=== PATIENT | female | born 1950 | race Caucasian/White ===

== ENCOUNTER → 2017-01-28 | Outpatient (CLI) | payer MEDICARE, OTHER ==
[2017-01-28 19:32] LABS: BASOPHILS % (AUTO) 0.3 %; EOSINOPHILS # (AUTO) 0.2 10^3/uL (0.0-0.7); EOSINOPHILS % (AUTO) 5.9 %; HCT - HEMATOCRIT 37.5 % (37.0-47.0); HGB - HEMOGLOBIN 12.5 g/dL (12.0-16.0); LYMPHOCYTES # (AUTO) 0.8 10^3/uL (1.5-3.5); LYMPHOCYTES % (AUTO) 22.2 %; MEAN CORPUSCULAR HEMOGLOBIN 31.9 pg (27.0-31.0); MEAN CORPUSCULAR HGB CONC 33.4 g/dL (32.0-36.0); MEAN CORPUSCULAR VOLUME 95.6 fL (81.0-99.0); MEAN PLATELET VOLUME 8.4 fL (7.9-10.8); MONOCYTES # (AUTO) 0.3 10^3/uL (0.0-1.0); MONOCYTES % (AUTO) 8.7 %; NEUTROPHILS # (AUTO) 2.2 10^3/uL (1.5-6.6); NEUTROPHILS % (AUTO) 62.9 %; NUCLEATED RED BLOOD CELLS AUTO 0.1 /100WBC; RED BLOOD COUNT 3.92 10^6/uL (4.20-5.40); RED CELL DISTRIBUTION WIDTH 13.6 % (12.0-15.0); UNCORRECTED WHITE BLOOD COUNT 3.5 x10^3/uL; WHITE BLOOD COUNT 3.5 x10^3/uL (4.8-10.8)
[2017-01-28 19:33] LABS: ALBUMIN/GLOBULIN RATIO 1.6 (1.0-2.2); BILIRUBIN,TOTAL 0.7 mg/dL (0.2-1.0); BUN - BLOOD UREA NITROGEN 16 mg/dL (6-20); CALCIUM 9.2 mg/dL (8.5-10.3); CARBON DIOXIDE - CO2 27 mmol/L (21-32); CHLORIDE 108 mmol/L (101-111); CHOL/HDL RATIO 2.5 (<4.4); CHOLESTEROL 193 mg/dL; CREATININE 0.8 mg/dL (0.4-1.0); GFR - MDRD 72 (>89); GLUCOSE 93 mg/dL (70-100); HDL CHOLESTEROL 76 mg/dL; SODIUM 142 mmol/L (135-145); TOTAL PROTEIN 6.4 g/dL (6.7-8.2); TRIGLYCERIDES 35 mg/dL
[2017-01-28 19:52] LABS: LDL CHOLESTEROL,DIRECT 105 mg/dL
== END ==
LOC: LAB.N 08:00
PROVIDERS: ATTEND Internal Medicine
DX: C50.919 Malignant neoplasm of unspecified site of unspecified female breast (principal); Z79.899 Other long term (current) drug therapy; Z72.89 Other problems related to lifestyle; E78.5 Hyperlipidemia, unspecified
CPT/HCPCS: 36415; 80053; 80061; 84443; 85025; 86803

== ENCOUNTER → 2018-03-08 | Outpatient (CLI) | payer MEDICARE, OTHER ==
[2018-03-08 12:24] LABS: BASOPHILS % (AUTO) 0.2 %; EOSINOPHILS # (AUTO) 0.3 10^3/uL (0.0-0.7); EOSINOPHILS % (AUTO) 6.4 %; HGB - HEMOGLOBIN 13.6 g/dL (12.0-16.0); LYMPHOCYTES % (AUTO) 25.8 %; MEAN CORPUSCULAR HEMOGLOBIN 32.6 pg (27.0-31.0); MEAN CORPUSCULAR HGB CONC 34.5 g/dL (32.0-36.0); MEAN CORPUSCULAR VOLUME 94.6 fL (81.0-99.0); MEAN PLATELET VOLUME 7.7 fL (7.9-10.8); MONOCYTES # (AUTO) 0.4 10^3/uL (0.0-1.0); MONOCYTES % (AUTO) 9.8 %; NEUTROPHILS # (AUTO) 2.3 10^3/uL (1.5-6.6); NEUTROPHILS % (AUTO) 57.8 %; PLT - PLATELET COUNT 182 10^3/uL (130-450); RED BLOOD COUNT 4.17 10^6/uL (4.20-5.40); RED CELL DISTRIBUTION WIDTH 13.3 % (12.0-15.0)
[2018-03-08 13:01] LABS: ALBUMIN 4.2 g/dL (3.2-5.5); ALBUMIN/GLOBULIN RATIO 1.5 (1.0-2.2); ALKALINE PHOSPHATASE 79 IU/L (42-121); ALT ALANINE AMINOTRANSFERASE 23 IU/L (10-60); AST ASPARTATE AMINOTRANSFERASE 23 IU/L (10-42); BILIRUBIN,TOTAL 0.7 mg/dL (0.2-1.0); BUN - BLOOD UREA NITROGEN 21 mg/dL (6-20); CALCIUM 9.4 mg/dL (8.5-10.3); CARBON DIOXIDE - CO2 27 mmol/L (21-32); CHLORIDE 104 mmol/L (101-111); CHOLESTEROL 170 mg/dL; CREATININE 0.7 mg/dL (0.4-1.0); GFR - MDRD 83 (>89); GLUCOSE 101 mg/dL (70-100); HDL CHOLESTEROL 83 mg/dL; SODIUM 139 mmol/L (135-145)
[2018-03-08 13:35] LABS: LDL CHOLESTEROL,DIRECT 118 mg/dL; LDLD/HDL RATIO 1.4 (<4.4)
== END ==
LOC: LAB.WCP 10:40
PROVIDERS: ATTEND Internal Medicine
DX: E78.5 Hyperlipidemia, unspecified (principal); C50.919 Malignant neoplasm of unspecified site of unspecified female breast; Z79.899 Other long term (current) drug therapy; M81.8 Other osteoporosis without current pathological fracture
CPT/HCPCS: 36415; 80053; 80061; 83721; 85025

== ENCOUNTER 2018-03-30 13:24 | Outpatient (CLI) | payer MEDICARE, OTHER ==
--- NOTE | 2018-03-31 09:17 | DEXA Report ---
Reason: POSTMENOPAUSAL Procedure Date: 03/30/2018 Accession Number: [id number] / [id number] Procedure: DEX - Dexa Spine and/or Hip CPT Code: FULL RESULT: EXAM: Dexa Spine and/or Hip DATE: 03/30/2018 2:03 PM CLINICAL HISTORY: POSTMENOPAUSAL TECHNIQUE: Dual energy x-ray absorptiometry (DXA) was performed on a [employer] System. Regions measured are the AP Spine, femoral neck, and if needed forearm. COMPARISON: 02/14/2016. In accordance with the International Society for Clinical Densitometry (ISCD) guidelines, data from previous exams may be reanalyzed using current recommendations and techniques. This is done to allow a more accurate basis for comparison with the current study. FINDINGS: The data for the lumbar spine is as follows: BMD (g/cm/cm) T-SCORE Z-SCORE REGION L1 1.006 -1.0 0.7 L2 1.008 -1.6 0.1 L3 1.093 -0.9 0.8 L4 1.166 -0.3 1.4 TOTAL 1.077 -0.9 0.8 NOTE: All evaluable vertebrae are used for classification The data for the hip is as follows: BMD (g/cm/cm) T-SCORE Z-SCORE REGION Neck 0.740 -2.1 -0.5 TOTAL 0.772 -1.9 -0.5 NOTE: The femoral neck or total proximal femur, whichever is lowest, is used for classification. DXA RESULTS SUMMARY: Spine SCAN DATE AGE BMD CHANGE VS CHANGE VS PREVIOUS PREVIOUS % 3/30/2018 [age] 1.077 -0.031* -2.8* 02/14/2016 [age] 1.108 * Denotes significant change at the 95% confidence level. Denotes dissimilar scan types or analysis methods. DXA RESULTS SUMMARY: Hip SCAN DATE AGE BMD CHANGE VS CHANGE VS PREVIOUS PREVIOUS % [birth year]30[birth year]2018 67.4 0.772 -0.049* -6.0* 02/14/2016 65.3 0.821 * Denotes significant change at the 95% confidence level. Denotes dissimilar scan types or analysis methods. IMPRESSION: THE WHO CLASSIFICATION BASED ON THE INTERNATIONAL REFERENCE STANDARD IS OSTEOPENIA. THE FRACTURE RISK IS INCREASED. RECOMMENDATION: Patients with diagnosis of osteoporosis or osteopenia should have regular bone mineral density assessment. For those eligible for Medicare, routine testing is allowed once every 2 years. Testing frequency can be increased for patients who have rapidly progressing disease or for those who are receiving medical therapy to restore bone mass. COMMENT: World Health Organization (WHO) definitions for osteoporosis and osteopenia: NORMAL BMD: T-score at -1.0 or higher, fracture risk is low OSTEOPENIA BMD: T-score between -1.0 and -2.5, fracture risk is increased. OSTEOPOROSIS BMD: T-score at -2.5 or lower, fracture risk is high. National Osteoporosis Foundation recommends: 1. Obtain adequate dietary calcium (at least 1200 mg per day) and vitamin D (400-800 international units per day). 2. Participate, as appropriate, in regular weightbearing and muscle-strengthening exercise. 3. Avoid tobacco use and reduce alcohol and caffeine intake. 4. For more detailed information see the website at www.NOF.org.
== END 2018-03-30 13:25 | disposition home or self-care (01) ==
LOC: DI 13:24
PROVIDERS: ATTEND Internal Medicine
DX: M85.88 Other specified disorders of bone density and structure, other site (principal)
CPT/HCPCS: 77080

== ENCOUNTER 2019-05-01 07:00 | Outpatient (CLI) | payer MEDICARE, OTHER ==
[2019-05-01 18:49] LABS: BASOPHILS % (AUTO) 0.3 %; EOSINOPHILS # (AUTO) 0.2 10^3/uL (0.0-0.7); EOSINOPHILS % (AUTO) 6.6 %; HGB - HEMOGLOBIN 12.9 g/dL (12.0-16.0); LYMPHOCYTES # (AUTO) 0.9 10^3/uL (1.5-3.5); LYMPHOCYTES % (AUTO) 25.7 %; MEAN CORPUSCULAR HEMOGLOBIN 32.3 pg (27.0-31.0); MEAN CORPUSCULAR HGB CONC 32.3 g/dL (32.0-36.0); MEAN CORPUSCULAR VOLUME 99.8 fL (81.0-99.0); MEAN PLATELET VOLUME 10.4 fL (7.9-10.8); MONOCYTES # (AUTO) 0.3 10^3/uL (0.0-1.0); MONOCYTES % (AUTO) 9.6 %; NEUTROPHILS # (AUTO) 1.9 10^3/uL (1.5-6.6); NEUTROPHILS % (AUTO) 57.8 %; PLT - PLATELET COUNT 179 10^3/uL (130-450); RED CELL DISTRIBUTION WIDTH 13.1 % (12.0-15.0); WHITE BLOOD COUNT 3.3 x10^3/uL (4.8-10.8)
[2019-05-01 19:18] LABS: ALBUMIN 3.8 g/dL (3.2-5.5); ALBUMIN/GLOBULIN RATIO 1.4 (1.0-2.2); ALKALINE PHOSPHATASE 61 IU/L (42-121); ALT ALANINE AMINOTRANSFERASE 26 IU/L (10-60); AST ASPARTATE AMINOTRANSFERASE 32 IU/L (10-42); BILIRUBIN,TOTAL 0.9 mg/dL (0.2-1.0); BUN - BLOOD UREA NITROGEN 17 mg/dL (6-20); CALCIUM 8.9 mg/dL (8.5-10.3); CARBON DIOXIDE - CO2 27 mmol/L (21-32); CHLORIDE 107 mmol/L (101-111); CHOL/HDL RATIO 2.6 (<4.4); CHOLESTEROL 197 mg/dL; CREATININE 0.7 mg/dL (0.4-1.0); GFR - MDRD 83 (>89); GLUCOSE 95 mg/dL (70-100); HDL CHOLESTEROL 77 mg/dL; SODIUM 142 mmol/L (135-145); TOTAL PROTEIN 6.6 g/dL (6.7-8.2)
== END 2019-05-01 23:59 | disposition home or self-care (01) ==
LOC: LAB.N 07:00
PROVIDERS: ATTEND Nurse Practitioner
DX: E78.5 Hyperlipidemia, unspecified (principal); R00.2 Palpitations; C50.919 Malignant neoplasm of unspecified site of unspecified female breast; M81.8 Other osteoporosis without current pathological fracture
CPT/HCPCS: 36415; 80053; 80061; 82306; 83721; 84443; 85025

== ENCOUNTER 2020-04-10 17:50 | Outpatient (CLI) | payer MEDICARE, OTHER ==
--- NOTE | 2020-04-11 16:31 | XRAY Report ---
PROCEDURE: Hand 3 View RT INDICATIONS: CAT BITE TECHNIQUE: 3 views of the hand(s) acquired. COMPARISON: None FINDINGS: Bones: No fractures or dislocations. No suspicious bony lesions. Soft tissues: No suspicious soft tissue calcifications. No radiopaque foreign body. IMPRESSION: No radiopaque foreign body. No visualized fracture. Reviewed by: Jocelin Brown MD on 04/11/2020 4:[address] [facility] Approved by: Jocelin Brown MD on 04/11/2020 4:[address] [facility] Station ID: [id number]
== END 2020-04-10 23:59 | disposition home or self-care (01) ==
LOC: DI.N 17:50
PROVIDERS: ATTEND Family Medicine
DX: S61.451A Open bite of right hand, initial encounter (principal); W55.01XA Bitten by cat, initial encounter

== ENCOUNTER 2020-05-20 08:00 | Outpatient (CLI) | payer MEDICARE, OTHER ==
[2020-05-20 18:40] LABS: BASOPHILS % (AUTO) 0.3 %; EOSINOPHILS # (AUTO) 0.2 10^3/uL (0.0-0.7); HGB - HEMOGLOBIN 13.2 g/dL (12.0-16.0); LYMPHOCYTES # (AUTO) 0.9 10^3/uL (1.5-3.5); LYMPHOCYTES % (AUTO) 24.1 %; MEAN CORPUSCULAR HEMOGLOBIN 31.6 pg (27.0-31.0); MEAN CORPUSCULAR HGB CONC 32.1 g/dL (32.0-36.0); MEAN CORPUSCULAR VOLUME 98.3 fL (81.0-99.0); MEAN PLATELET VOLUME 9.9 fL (7.9-10.8); MONOCYTES # (AUTO) 0.4 10^3/uL (0.0-1.0); MONOCYTES % (AUTO) 9.1 %; NEUTROPHILS # (AUTO) 2.3 10^3/uL (1.5-6.6); NEUTROPHILS % (AUTO) 60.2 %; PLT - PLATELET COUNT 187 10^3/uL (130-450); RED BLOOD COUNT 4.18 10^6/uL (4.20-5.40); RED CELL DISTRIBUTION WIDTH 13.4 % (12.0-15.0); WHITE BLOOD COUNT 3.9 x10^3/uL (4.8-10.8)
[2020-05-20 18:51] LABS: ALBUMIN/GLOBULIN RATIO 1.4 (1.0-2.2); ALKALINE PHOSPHATASE 77 IU/L (42-121); ALT ALANINE AMINOTRANSFERASE 23 IU/L (10-60); AST ASPARTATE AMINOTRANSFERASE 26 IU/L (10-42); BILIRUBIN,TOTAL 0.6 mg/dL (0.2-1.0); BUN - BLOOD UREA NITROGEN 19 mg/dL (6-20); CALCIUM 9.2 mg/dL (8.5-10.3); CARBON DIOXIDE - CO2 25 mmol/L (21-32); CHLORIDE 108 mmol/L (101-111); CHOL/HDL RATIO 2.8 (<4.4); CHOLESTEROL 228 mg/dL; CREATININE 0.7 mg/dL (0.4-1.0); GLUCOSE 102 mg/dL (70-100); HDL CHOLESTEROL 82 mg/dL; LDL CHOLESTEROL,CALCULATED 137 mg/dL; LDL/HDL RATIO 1.7 (<4.4); TOTAL PROTEIN 6.9 g/dL (6.7-8.2); VLDL CHOLESTEROL 9 mg/dL
== END 2020-05-20 23:59 ==
LOC: LAB.WCP 08:00
PROVIDERS: ATTEND Nurse Practitioner
DX: R00.2 Palpitations (principal); E78.5 Hyperlipidemia, unspecified; Z78.0 Asymptomatic menopausal state; M81.8 Other osteoporosis without current pathological fracture
CPT/HCPCS: 36415; 80053; 80061; 83721; 84443; 85025

== ENCOUNTER 2020-06-12 12:59 | Outpatient (CLI) | payer MEDICARE, OTHER ==
--- NOTE | 2020-06-12 15:40 | DEXA Report ---
PROCEDURE: Dexa Spine and/or Hip INDICATIONS: POSTMENOPAUSAL TECHNIQUE: Dual energy x-ray absorptiometry (DXA) was performed on a [employer] System. Regions measur ed are the AP Spine, femoral neck, and if needed forearm. COMPARISON: Dexa, 03/30/2018 and 02/14/2016. FINDINGS: Lumbar Spine: Bone Mineral Density 1.108 g/cm/cm,T score -0.6, Left Hip: Bone Mineral Density 0.770 g/cm/cm,T score -1.9. Left Femoral Neck: Bone Mineral Density 0.738 g/cm/cm, T score -2.2, (T score greater or equal to -1.0: NORMAL) (T score from -1.1 to -2.4: OSTEOPENIA) (T score less than or equal to -2.5 to: OSTEOPOROSIS) Impression: 1. Based on WHO criteria, the patient is osteopenic. Compared with the prior examination dated 2017, the bone mineral density of the lumbar spine is slightly improved. The bone mineral density of the left hip is unchanged. Patients with diagnosis of osteoporosis or osteopenia should have regular bone mineral density assess ment. For those eligible for Medicare, routine testing is allowed once every 2 years. Testing frequ ency can be increased for patients who have rapidly progressing disease or for those who are receivin g medical therapy to restore bone mass. Reviewed by: J Carlos Barnett MD on 06/12/2020 3:38 PM PST Approved by: J Carlos Barnett MD on 06/12/2020 3:38 PM PST Station ID: [id number]
== END 2020-06-12 13:00 | disposition home or self-care (01) ==
LOC: DI 12:59
PROVIDERS: ATTEND Nurse Practitioner
DX: M85.89 Other specified disorders of bone density and structure, multiple sites (principal); Z78.0 Asymptomatic menopausal state

== ENCOUNTER 2021-06-11 11:21 | Outpatient (CLI) | payer MEDICARE, OTHER ==
[2021-06-11 18:00] LABS: BASOPHILS % (AUTO) 0.5 %; EOSINOPHILS # (AUTO) 0.3 10^3/uL (0.0-0.7); HCT - HEMATOCRIT 40.8 % (37.0-47.0); HGB - HEMOGLOBIN 12.9 g/dL (12.0-16.0); LYMPHOCYTES # (AUTO) 1.1 10^3/uL (1.5-3.5); LYMPHOCYTES % (AUTO) 25.9 %; MEAN CORPUSCULAR HEMOGLOBIN 30.8 pg (27.0-31.0); MEAN CORPUSCULAR HGB CONC 31.6 g/dL (32.0-36.0); MEAN CORPUSCULAR VOLUME 97.4 fL (81.0-99.0); MONOCYTES # (AUTO) 0.4 10^3/uL (0.0-1.0); MONOCYTES % (AUTO) 10.1 %; NEUTROPHILS # (AUTO) 2.4 10^3/uL (1.5-6.6); NEUTROPHILS % (AUTO) 57.3 %; PLT - PLATELET COUNT 193 10^3/uL (130-450); RED BLOOD COUNT 4.19 10^6/uL (4.20-5.40); WHITE BLOOD COUNT 4.2 x10^3/uL (4.8-10.8)
[2021-06-11 18:21] LABS: % IRON SATURATION 23 % (20-50); ALBUMIN/GLOBULIN RATIO 1.3 (1.0-2.2); ALKALINE PHOSPHATASE 64 IU/L (42-121); ALT ALANINE AMINOTRANSFERASE 24 IU/L (10-60); AST ASPARTATE AMINOTRANSFERASE 26 IU/L (10-42); BILIRUBIN,TOTAL 0.7 mg/dL (0.2-1.0); BUN - BLOOD UREA NITROGEN 18 mg/dL (6-20); CALCIUM 9.6 mg/dL (8.5-10.3); CARBON DIOXIDE - CO2 27 mmol/L (21-32); CHLORIDE 104 mmol/L (101-111); CHOL/HDL RATIO 2.5 (<4.4); CHOLESTEROL 207 mg/dL; CREATININE 0.8 mg/dL (0.4-1.0); GFR - MDRD 71 (>89); GLUCOSE 98 mg/dL (70-100); HDL CHOLESTEROL 83 mg/dL; IRON 82 ug/dL (28-170); LDL CHOLESTEROL,CALCULATED 115 mg/dL; LDL/HDL RATIO 1.4 (<4.4); POTASSIUM 4.1 mmol/L (3.5-5.0); SODIUM 139 mmol/L (135-145); TOTAL IRON BINDING CAPACITY 360 ug/dL (250-450); TOTAL PROTEIN 7.1 g/dL (6.7-8.2); TRANSFERRIN 257 mg/dL (192-382); TRIGLYCERIDES 45 mg/dL; VLDL CHOLESTEROL 9 mg/dL
[2021-06-11 18:32] LABS: FREE T4 (FREE THYROXINE) 0.82 ng/dL (0.58-1.64)
== END 2021-06-11 11:22 | disposition home or self-care (01) ==
LOC: LAB.N 11:21
PROVIDERS: ATTEND Nurse Practitioner
DX: E78.5 Hyperlipidemia, unspecified (principal); R25.2 Cramp and spasm; R53.83 Other fatigue
CPT/HCPCS: 36415; 80053; 80061; 82607; 83540; 83721; 84439; 84443; 84466; 85025

== ENCOUNTER 2022-01-16 17:00 | Outpatient (CLI) | payer MEDICARE, OTHER ==
--- NOTE | 2022-01-16 17:41 | XRAY Report ---
PROCEDURE: Chest 2 View X-Ray INDICATIONS: ACUTE COUGH TECHNIQUE: 2 view(s) of the chest. COMPARISON: None. FINDINGS: Surgical changes and devices: Right and left breast clips. Lungs and pleura: No pleural effusions or pneumothorax. Right lower lobe mass measuring 5.2 cm. Poss ible additional pulmonary nodules in the left lung. For example at the left lower lobe measuring 1.3 cm. Mediastinum: Mediastinal contours are normal. Heart size is normal. Bones and chest wall: No suspicious bony abnormalities. Soft tissues appear unremarkable. IMPRESSION: Right lower lobe mass measuring 5.2 cm. Differential diagnosis includes pneumonia. Additional nodule or nodules in the left lung. Recommend CT of the chest with IV contrast for further evaluation. Reviewed by: Jerel Harrington MD on 01/16/2022 5:39 PM PDT Approved by: Jerel Harrington MD on 01/16/2022 5:39 PM PDT Station ID: [id number]
== END 2022-01-16 17:01 | disposition home or self-care (01) ==
LOC: DI 17:00
PROVIDERS: ATTEND Physician Assistant Medical
DX: R91.8 Other nonspecific abnormal finding of lung field (principal)

== ENCOUNTER 2022-01-21 12:13 | Outpatient (CLI) | payer MEDICARE, OTHER ==
--- NOTE | 2022-01-21 21:33 | CT Report ---
PROCEDURE: CT CHEST with contrast INDICATIONS: COUGH. History of breast cancer and bilateral mastectomy. CONTRAST: IV CONTRAST: Optiray 320 ml: 100 PO CONTRAST: *NO PO CONTRAST TECHNIQUE: After the administration of intravenous contrast, 1 mm axial images were acquired from the pulmonary apices through the posterior costophrenic angles. Axial 5 mm soft tissue kernel reconstructions were performed as well as 8 mm axial MIP and coronal and sagittal 5 mm reformations. For radiation dose reduction, the following was used: automated exposure control, adjustment of mA and/or kV according to patient size. COMPARISON: Chest radiographs 01/16/2022. FINDINGS: Image quality: Excellent. Images are denoted as (series #/image #). Visualized thyroid: Unremarkable. Lymph nodes: Mediastinal and right hilar lymphadenopathy is present. For example: -Right lower paratracheal lymph node conglomerate: 4.4 x 1.9 cm (3). -Right hilar lymph node: 1.9 x 1.2 cm (07/31). Right mediastinal and hilar adenopathy results in narrowing of adjacent pulmonary arteries and airway s. Vasculature: Aorta and main pulmonary artery diameters are within normal range. Heart: Small-moderate pericardial effusion. Lung parenchyma and pleura: Multiple (at least 10) nodules/masses are present involving both lungs. E xamples include: -Right lower lobe: 5.4 x 4.5 cm mass (4/192). The mass encases and narrows the adjacent airways and a rteries. -Left lower lobe, anterior: 1 20 cm nodule (4/212). -Left upper lobe: 0.7 cm nodule (4/120). No pleural effusion. Airways: Airways are patent centrally. There is mild narrowing of the central right upper lobe airway by adjacent lymphadenopathy. Chest wall/musculoskeletal: Bilateral mastectomy. Degenerative changes of the spine. No definitive alston spicious osseous lesion identified. Visualized upper abdomen: 1.6 cm left adrenal nodule (3/59). IMPRESSION: 1. Findings suspicious for thoracic metastatic disease including a dominant right lower lobe mass, pu lmonology nodules within both lungs, and mediastinal and right hilar lymphadenopathy. This is suspici ous for primary lung cancer but other nonspecific metastatic disease is also possible. 2. An indeterminate left adrenal nodule is present. If clinically indicated, adrenal protocol CT with out and with contrast could be helpful to determine if this represents an adenoma. Otherwise, attenti on to this finding on future follow-up imaging studies is recommended. Reviewed by: Rhett Radford MD on 01/21/2022 9:32 PM PDT Approved by: Rhett Radford MD on 01/21/2022 9:32 PM PDT Station ID: [id number]
== END 2022-01-21 12:14 | disposition home or self-care (01) ==
LOC: DI 12:13
PROVIDERS: ATTEND Physician Assistant Medical
DX: R91.8 Other nonspecific abnormal finding of lung field (principal); R59.0 Localized enlarged lymph nodes; E27.8 Other specified disorders of adrenal gland
CPT/HCPCS: 71260; Q9967

== ENCOUNTER 2022-01-28 10:13 | Outpatient (CLI) | payer MEDICARE, OTHER | END 2022-01-28 10:14 | disposition home or self-care (01) | LOC: LAB.N 10:13 | DX: Z01.812 Encounter for preprocedural laboratory examination (principal); Z20.822 Contact with and (suspected) exposure to COVID-19 ==

== ENCOUNTER 2022-08-01 10:32 | Inpatient (IN) | payer MEDICARE, OTHER ==
[2022-08-01] MEDS ORDERED: ONDANSETRON 4 MG/2 ML VIAL IVP STA (11:19)
[2022-08-01] MEDS ORDERED: FAMOTIDINE 20 MG/2 ML VIAL IVP STA (11:20)
[2022-08-01] MEDS ORDERED: SODIUM CHLORIDE 0.9% 1,000 ML IV STA ×2 (11:20→12:16)
[2022-08-01] MEDS ORDERED: HYDROmorphone 0.5 MG/0.5 ML SYRINGE IVP STA (11:22)
[2022-08-01 11:42] LABS: BASOPHILS % (AUTO) 0.1 %; EOSINOPHILS % (AUTO) 0.1 %; HCT - HEMATOCRIT 41.2 % (37.0-47.0); HGB - HEMOGLOBIN 12.6 g/dL (12.0-16.0); LYMPHOCYTES % (AUTO) 3.6 %; MEAN CORPUSCULAR HEMOGLOBIN 31.8 pg (27.0-31.0); MEAN CORPUSCULAR HGB CONC 30.6 g/dL (32.0-36.0); MEAN PLATELET VOLUME 10.1 fL (7.9-10.8); MONOCYTES % (AUTO) 5.6 %; NEUTROPHILS % (AUTO) 79.4 %; PLT - PLATELET COUNT 280 10^3/uL (130-450); RED BLOOD COUNT 3.96 10^6/uL (4.20-5.40); RED CELL DISTRIBUTION WIDTH 14.6 % (12.0-15.0); WHITE BLOOD COUNT 14.8 x10^3/uL (4.8-10.8)
[2022-08-01] MEDS ORDERED: ALBUTEROL NEB 2.5 MG/3 ML INH STA (12:05)
[2022-08-01 12:10] LABS: ALBUMIN 4.1 g/dL (3.2-5.5); ALKALINE PHOSPHATASE 147 IU/L (42-121); ALT ALANINE AMINOTRANSFERASE 36 IU/L (10-60); AST ASPARTATE AMINOTRANSFERASE 22 IU/L (10-42); BILIRUBIN,TOTAL 1.5 mg/dL (0.2-1.0); BUN - BLOOD UREA NITROGEN 54 mg/dL (6-20); CALCIUM 9.3 mg/dL (8.5-10.3); CHLORIDE 101 mmol/L (101-111); CREATININE 1.9 mg/dL (0.4-1.0); GFR - MDRD 26 (>89); LIPASE 36 U/L (22-51); MAGNESIUM 2.9 mg/dL (1.7-2.8); SODIUM 133 mmol/L (135-145); TOTAL PROTEIN 8.1 g/dL (6.7-8.2)
[2022-08-01 12:14] LABS: CARBON DIOXIDE - CO2 < 6 mmol/L (21-32); GLUCOSE 856 mg/dL (70-100)
[2022-08-01 12:16] LABS: SLIDE REVIEW? Indicated
[2022-08-01] MEDS ORDERED: INSULIN REGULAR HUMAN 100 UNIT/1 ML 10 ML MDV IVP STA (12:16)
[2022-08-01 12:27] LABS: ABNORMAL LYMPHS % (MANUAL) 0 %
--- NOTE | 2022-08-01 12:28 | XRAY Report ---
PROCEDURE: Chest 1 View X-Ray INDICATIONS: chest pain TECHNIQUE: One view of the chest was acquired. COMPARISON: 01/16/2022. Correlation is also made with the chest CT, 01/21/2022. FINDINGS: Surgical changes and devices: Right breast clips and bilateral axillary clips are seen. There is a r ight-sided chest port, with the tip seen near the cavoatrial junction.. Lungs and pleura: No pleural effusions or pneumothorax. The previously seen right infrahilar nodule is clearly improved compared to the prior chest radiograph. Mediastinum: The aorta is prominent and tortuous. The cardiac contours are within normal limits. Bones and chest wall: No suspicious bony lesions. Overlying soft tissues appear unremarkable. IMPRESSION: No acute abnormality is seen. Improved right infrahilar mass. Right-sided chest port. Additional findings: Right breast clips Bilateral axillary clips Reviewed by: Emerson Perez MD on 08/01/2022 11:26 AM [facility] Approved by: Emerson Perez MD on 08/01/2022 11:26 AM [facility] Station ID: [id number]
[2022-08-01 12:32] LABS: VBG BASE EXCESS -25.4 mmol/L (-2 - +2); VBG HCO3 4.8 mmol/L (23-28); VBG OXYGEN SATURATION 92.7 % (60-80); VBG PCO2 20.8 mmHg (41-51); VBG PO2 78.7 mmHg (25-47); VBG TOTAL CO2 5.4 mmol/L (24-29)
[2022-08-01 12:33] LABS: BAND NEUTROPHILS % (MANUAL) 10 %; LYMPHOCYTES # (MANUAL) 0.4 10^3/uL (1.5-3.5); LYMPHOCYTES % (MANUAL) 3 %; METAMYELOCYTES % (MANUAL) 5 %; MONOCYTES # (MANUAL) 0.4 10^3/uL (0.0-1.0); MYELOCYTES % (MANUAL) 9 %; NEUTROPHILS # (MANUAL) 11.8 10^3/uL (1.5-6.6)
[2022-08-01 12:34] LABS: VBG PH 6.98 (7.31-7.41)
[2022-08-01 12:38] LABS: PLATELET ESTIMATE, MANUAL NORMAL (130-450,000) (NORMAL); PLATELET MORPHOLOGY NORMAL APPEARANCE (NORMAL)
[2022-08-01 12:39] LABS: DIFFERENTIAL COMMENT MANUAL DIFFERENTIAL
[2022-08-01 12:48] LABS: B. PARAPERTUSSIS- RESP PCR PAN NOT DETECTED; B. PERTUSSIS- RESP PCR PANEL NOT DETECTED; C. PNEUMONIAE- RESP PCR PANEL NOT DETECTED; CORONAVIRUS 229E-RESP PCR NOT DETECTED; CORONAVIRUS HKU1-RESP PCR NOT DETECTED; CORONAVIRUS NL63-RESP PCR NOT DETECTED; CORONAVIRUS OC43-RESP PCR NOT DETECTED; HUMAN METAPNEUMOVIRUS NOT DETECTED; INFLUENZA A- RESP PCR PANEL NOT DETECTED; INFLUENZA B - RESP PCR PANEL NOT DETECTED; M. PNEUMONIAE- RESP PCR PANEL NOT DETECTED; PARAINFLUENZA VIRUS 1 NOT DETECTED; PARAINFLUENZA VIRUS 2 NOT DETECTED; PARAINFLUENZA VIRUS 3 NOT DETECTED; PARAINFLUENZA VIRUS 4 NOT DETECTED; RHINOVIRUS/ENTEROVIRUS NOT DETECTED; RSV- RESP PCR PANEL NOT DETECTED; SARS-CoV-2 -RESP PCR PANEL NOT DETECTED
[2022-08-01] MEDS ORDERED: INSULIN REGULAR IN 0.9 % NS 100 UNIT/100 ML BAG IV SCH (13:00)
--- NOTE | 2022-08-01 13:01 | ED Physician Documentation ---
PD HPI NVD - Stated complaint Stated Complaint: SOA/VOMITING/ABD PX - Chief complaint Chief Complaint: Abd Pain - History obtained from History obtained from: Patient - History of Present Illness Timing - onset: How many days ago (2) Timing - duration: Days (2) Timing - details: Abrupt onset, Still present (Onset of nausea and vomiting starting 2 days ago. Emesis of any oral intake. Decreased urine output. No diarrhea. She started steroids 2 days ago for rash medication related. No history of diabetes.) Associated symptoms: Abdominal pain (intermittent upper abd cramping.). 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 Had medications discontinued, Keytruda 4 weeks ago and Zarxio 2 days ago. Started on prednisone 40 mg daily 2 days ago.) Review of Systems Constitutional: denies: Fever, Chills Nose: denies: Rhinorrhea / runny nose, Congestion Throat: reports: Sore throat Cardiac: denies: Chest pain / pressure, Palpitations Respiratory: reports: Dyspnea, Wheezing. denies: Cough GI: reports: Abdominal Pain (intermittent upper abd pain), Nausea, Vomiting. denies: Constipation, Diarrhea, Hematemesis, Bloody / black stool : denies: Dysuria Skin: reports: Rash (for several weeks, thought related to Oncology meds.) Neurologic: reports: Generalized weakness. 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 Had been doing well and then found to have a lung tumor recently that was breast tissue. Some metastatic disease to the lung without other metastases as yet. 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: Mastectomy - Present Medications Home Medications: Ambulatory Orders Medication Instructions Recorded Confirmed Alendronate [Fosamax] 70 mg PO Q7D 05/17/13 06/19/15 Alprazolam 0.25 mg PO DAILY PRN 05/17/13 06/19/15 Ascorbic Acid [Vitamin C] 1 tab PO DAILY 05/17/13 06/19/15 Ca Carbonate/Vitamin D3/Vit K 2 each PO BID 05/17/13 06/19/15 [Viactiv Soft Chew Tablet] Cetirizine [ZyrTEC] 10 mg PO DAILY 05/17/13 06/19/15 Ibuprofen 100 mg PO DAILY PRN 05/17/13 06/19/15 Metrolotion 1 inch TP DAILY PRN 05/17/13 06/19/15 Sennosides [Senna] 8.6 mg PO DAILY PRN 05/17/13 06/19/15 Simethicone [Mytab Gas] 80 mg PO DAILY PRN 05/17/13 06/19/15 Sulfacetamide Sodium [Klaron] 118 ml TP DAILY 05/17/13 06/19/15 Vitamin B Complex [B Complex] 1 each PO DAILY 05/17/13 06/19/15 Glucosam/Chondr-Msm6/Manganese 1 each PO DAILY 06/19/15 06/19/15 [Glucosamine-Chondroitin Sftgl] Magnesium 500 mg PO DAILY 06/19/15 06/19/15 - Allergies Allergies/Adverse Reactions: Allergies Allergy/AdvReac Type Severity Reaction Status Date / Time Cephalosporins Allergy Rash Verified 08/01/22 12:07 Iodinated Contrast Media Allergy Edema Verified 08/01/22 12:07 bandaids Allergy Itching Uncoded 08/01/22 11:40 - Social History Does the pt smoke?: No Smoking Status: Never smoker PD ED PE NORMAL - Vitals Vital signs reviewed: Yes - General General: Alert and oriented X 3, Well developed/nourished, Other (Appears uncomfortable with nausea and vomiting. Holding emesis bag. Has emesis of clear liquids.) - Neck Neck: Supple, no meningeal sign, No adenopathy - Cardiac Cardiac: RRR, No murmur - Respiratory Respiratory: No respiratory distress. No: Clear bilaterally (mild exp wheezes centrally. No coarse sounds. ) - Abdomen Abdomen: Soft, Non distended, No organomegaly, Other (Mild tenderness in the epigastric area without any guarding nor percussion tenderness. Lower abdomen not tender.). No: Normal bowel sounds (diminished) - Derm Derm: Normal color, Warm and dry, Other (Generalized rash noted in patches with scaling of skin and red base consistent with parents nummular psoriasis. Right face with some redness surrounding but no purulence.) - Extremities Extremities: No edema, No calf tenderness / cord - Neuro Neuro: Alert and oriented X 3, No motor deficit, Normal speech Results - Vitals Vitals: Vital Signs - 24 hr 08/01/22 08/01/22 10:34 12:18 Temperature 36.6 C Heart Rate 91 96 Respiratory 14 18 Rate Blood Pressure 144/53 H O2 Saturation 96 Oxygen O2 Source Room air - Labs Labs: Laboratory Tests 08/01/22 08/01/22 08/01/22 11:35 11:35 11:50 WBC 14.8 H RBC 3.96 L Hgb 12.6 Hct 41.2 MCV 104.0 H MCH 31.8 H MCHC 30.6 L RDW 14.6 Plt Count 280 MPV 10.1 Neut # (Auto) Not Reportable Lymph # (Auto) Not Reportable Mcclain # (Auto) Not Reportable Eos # (Auto) Not Reportable Baso # (Auto) Not Reportable Absolute Nucleated RBC Not Reportable Total Counted 100 Band Neuts % (Manual) 10 Abnorm Lymph % (Manual) 0 Metamyelocytes % 5 H Myelocytes % 9 H Nucleated RBC % Not Reportable Neutrophils # (Manual) 11.8 H Lymphocytes # (Manual) 0.4 L Monocytes # (Manual) 0.4 Eosinophils # (Manual) 0.0 Basophils # (Manual) 0.0 Differential Comment MANUAL DIFFERENTIAL Manual Slide Review Indicated WBC Morphology 1+ TOXIC GRANULATION Platelet Estimate NORMAL (130-450,000) Platelet Morphology NORMAL APPEARANCE RBC Morph Micro Appear 1+ MACROCYTOSIS VBG pH VBG pCO2 VBG pO2 VBG HCO3 VBG Total CO2 VBG O2 Saturation VBG Base Excess Sodium 133 L Potassium 6.0 H* Chloride 101 Carbon Dioxide < 6 L* Anion Gap 27.0 H BUN 54 H Creatinine 1.9 H Estimated GFR (MDRD) 26 L Glucose 856 H* Calcium 9.3 Magnesium 2.9 H Total Bilirubin 1.5 H AST 22 ALT 36 Alkaline Phosphatase 147 H Total Protein 8.1 Albumin 4.1 Globulin 4.0 Albumin/Globulin Ratio 1.0 Lipase 36 Nasal Adenovirus (PCR) NOT DETECTED Nasal B. parapertussis DNA (PCR) NOT DETECTED Nasal Coronavir 229E PCR NOT DETECTED Nasal Coronavir HKU1 PCR NOT DETECTED Nasal Coronavir NL63 PCR NOT DETECTED Nasal Coronavir OC43 PCR NOT DETECTED Nasal Enterovir/Rhinovir PCR NOT DETECTED Nasal Influenza B PCR NOT DETECTED Nasal Influenza A PCR NOT DETECTED Nasal Parainfluen 1 PCR NOT DETECTED Nasal Parainfluen 2 PCR NOT DETECTED Nasal Parainfluen 3 PCR NOT DETECTED Nasal Parainfluen 4 PCR NOT DETECTED Nasal RSV (PCR) NOT DETECTED Nasal B.pertussis DNA PCR NOT DETECTED Nasal C.pneumoniae (PCR) NOT DETECTED Yo Human Metapneumo PCR NOT DETECTED Nasal M.pneumoniae (PCR) NOT DETECTED Nasal SARS-CoV-2 (PCR) NOT DETECTED Serum Ketones 08/01/22 08/01/22 12:26 12:26 WBC RBC Hgb Hct MCV MCH MCHC RDW Plt Count MPV Neut # (Auto) Lymph # (Auto) Mcclain # (Auto) Eos # (Auto) Baso # (Auto) Absolute Nucleated RBC Total Counted Band Neuts % (Manual) Abnorm Lymph % (Manual) Metamyelocytes % Myelocytes % Nucleated RBC % Neutrophils # (Manual) Lymphocytes # (Manual) Monocytes # (Manual) Eosinophils # (Manual) Basophils # (Manual) Differential Comment Manual Slide Review WBC Morphology Platelet Estimate Platelet Morphology RBC Morph Micro Appear VBG pH 6.980 L VBG pCO2 20.8 L VBG pO2 78.7 H VBG HCO3 4.8 L VBG Total CO2 5.4 L VBG O2 Saturation 92.7 H VBG Base Excess -25.4 L Sodium Potassium Chloride Carbon Dioxide Anion Gap BUN Creatinine Estimated GFR (MDRD) Glucose Calcium Magnesium Total Bilirubin AST ALT Alkaline Phosphatase Total Protein Albumin Globulin Albumin/Globulin Ratio Lipase Nasal Adenovirus (PCR) Nasal B. parapertussis DNA (PCR) Nasal Coronavir 229E PCR Nasal Coronavir HKU1 PCR Nasal Coronavir NL63 PCR Nasal Coronavir OC43 PCR Nasal Enterovir/Rhinovir PCR Nasal Influenza B PCR Nasal Influenza A PCR Nasal Parainfluen 1 PCR Nasal Parainfluen 2 PCR Nasal Parainfluen 3 PCR Nasal Parainfluen 4 PCR Nasal RSV (PCR) Nasal B.pertussis DNA PCR Nasal C.pneumoniae (PCR) Yo Human Metapneumo PCR Nasal M.pneumoniae (PCR) Nasal SARS-CoV-2 (PCR) Serum Ketones MODERATE H - Rads (name of study) chest xray Relevant Findings:: Prelim report reviewed, EMP independent interpretation of test (no infiltrates noted. Port in place. Per Radia also an improvement in right infrahilar mass. ), See rad report PD Medical Decision Making - ED course Complexity details: considered differential (General weakness and body aches with nausea and vomiting and some feeling of dyspnea. Initial impression would be viral illness or gastroenteritis. Mild epigastric tenderness. Will give IV fluids and antiemetics and pain medicine. Check labs), d/w patient ED course: The patient presented with 2 days of nausea and vomiting and general malaise and weakness. She had started prednisone 2 days ago for a rash thought related to one of her chemo medications. She was on Keytruda for her breast cancer to the lung. She was then on Zarxio for a low white count. She developed a rash and so had these medicines stepwise stopped. She was started on prednisone 2 days ago for the rash. No history of diabetes and she states recent blood test even up to 2 weeks ago had been normal. Labs here are showing a significantly elevated blood sugar of in the 800s. Subsequently I did add venous blood gas which showed a pH of 6.9 and a serum ketone level was ordered and reviewed showing moderate ketones. Her initial potassium was elevated at 6.0 and magnesium at 2.9. Her sodium is in the normal range at 133 but given the blood sugar in the 800s, this would correct to actually a sodium approximately 148 which would be consistent with dehydration. Her kidney function is slightly elevated from baseline. The patient does appear dehydrated. There is also the new onset DKA. I do not know if this could be accounted for from the prednisone just for the last 2 days. There is no other obvious instigator for it. The patient was started on a infusion of saline after given 2 L fluid boluses. She was given 3 units of insulin IV to start and then an insulin drip will be started. This will need to be monitored closely to ensure no not too rapid of a decrease in the blood sugar. I did repeat her basic metabolic profile at approximately 1-1/2 hours after the first to see the trend in her potassium and sodium. This will give a sense on her renal function as well. I do not see a oncology specific problem at this time and so I do not feel she needs transferring to the oncology. Talked with our hospitalist here Dr. Head who is in agreement and feels that we can treat the patient here locally. We do have ICU beds available and the patient will be admitted to the ICU here. The patient was updated on the blood tests and advancements in treatment as we progressed. We did get a chest x-ray which did not show any infiltrates. Her respiratory panel was negative for the major viruses. No apparent infectious cause per se. Departure - Departure Disposition: 66 [facility] DC/Xfer Clinical Impression: Nausea and vomiting due to hyperglycemia, DKA (diabetic ketoacidosis), Dehydration, Breast cancer metastasized to lung Condition: Stable Record reviewed to determine appropriate education?: Yes
--- NOTE | 2022-08-01 13:09 | HISTORY & PHYSICAL EXAMINATION ---
Chief Complaint - Chief Complaint Chief Complaint: nausea and vomitting History of Present Illness - Admitted From Admitted From:: home - History Obtained From Records Reviewed: [facility] and [facility] History obtained from: patient and Dr. Joy Exam Limitations: none - History of Present Illness HPI Comment/Other: This 71-year-old female has lung cancer. She was started on steroids 2 days ago. She has no previous history of diabetes. And began having abdominal cramping, nausea and vomiting. She has been unable to keep anything down and has come to the emergency room. She is found to be in DKA. She was initially diagnosed with breast cancer in 2001. She was triple negative. T2N0. Underwent CMF therapy, bilateral mastectomies. Had ROSMERY status 5 years later. In October 2021 she began having a spasmodic cough, shortness of breath after donating blood. A chest x-ray was finally done in January 2022 were the shortness of breath and cough was so pervasive. It showed a lung mass, when CT was done showed multiple bilateral masses. Some as large as 5.4 cm. Mediastinal and right hilar adenopathy. A small moderate pericardial effusion. An indeterminant left adrenal nodule. The biopsy showed her to be recurrent breast cancer. I do not have records to verify that. But the patient is a very medically literate person and says that it was recurrent metastatic breast cancer. She has been on Keytruda and Abraxane. Abraxane was eventually dropped and she is only been on Keytruda. About 7 weeks ago she developed an unusual rash. 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 She was given steroids yesterday for the first time to help with the rash. Up until now both she and her son states that she has been tolerating all of his well. Appetite has been down, but ability to ambulate, drive a car, keep house, and stay up-to-date on her appointments and medications was doing well. Yesterday, after the dose steroids, she developed nausea and vomiting. Generalized intermittent abdominal pain that seem to begin going all over. No diarrhea. No fever, cough, chills. No blood in the stool, no blood in the urine. No urgency, frequency dysuria. She is exceedingly exhausted. V katinaon has changed. She says that she will look at something and it seems to distort as she is looking at it. It changes color, becomes brighter or lead quality technician. She finally came to the emergency room today when the nausea and vomiting was nonstop. Her mouth was getting so dry. She was started to get short of breath. A full review of systems was done and she tells me that her migraine are steady. The same as always. Other than the distorted vision she swears the same classes. If she takes 4 ibuprofen it takes the migraine away almost immediately if she does not with the aura. Her allergic rhinitis is fairly good because she has been doubling up on her antihistamines for her skin rash. Lately she notices if she swallows, she has a coughing fit after swallowing. She has occasional palpitations but they are nothing new. She says that she has a problem with anxiety. She has no new chest pain, different palpitation, orthopnea, or edema. Overall her appetite has been down and she is lost about 8 pounds. She has not eaten in 2 days. She has chronic sciatica with degenerative disc disease of the lumbar spine and facet arthritis. Both hips and legs will hurt but the left leg is much worse than the right leg. It causes her to limp around. She does not need a cane or a walker. She denies seizures, syncope, memory loss. The only neurological complaint she has is chronic numb ness of her hands and feet left over from the chemotherapy in 2001. In this new visual distortion that she is getting. In the emergency room temperature was 36.6, heart rate 91, blood pressure 144/5 3. 96% on room air. Diffuse pain, mainly in her abdomen at an 8 out of a 10. She has diffuse circular macules. They are not confluent. Spots on her face, forearms, none on her trunk, abdomen, or legs. Dr. Joy's lab evaluation showed her to have a sodium of 133, potassium 6.0. Carbon dioxide less than 6. BUN 54. Creatinine 1.9. Glucose was 856. Magnesium 2.9, total bili 1.5. Alk phos 147. He had not done a UA or troponin. I ordered those and her troponin was 22.7. Urinalysis had proteinuria, ketonuria, hematuria, red cells and white cells but was leukocyte Estrace negative, nitrite negative. She did have squamous cells. Chest x-ray had an improved right hilar infrahilar mass from when she first presented with an abnormal chest x-ray in October 2021. 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 Bilateral mastectomy. Triple negative. CMF. 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 Her son is adopted as well. Living arrangement: At home Living Situation: With family Social History Notes: She is since 2006. Son lives with her. Never smoked. 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 She has no history of recreational alston bstance abuse. - Substance History Use: Uses substance without health or social issues: NONE - POLST Patient has POLST: No POLST Status: Full Code Meds/Allgy - Home Medications Home Medications: Ambulatory Orders Medication Instructions Recorded Confirmed Alprazolam 0.25 mg PO QPM PRN 05/17/13 08/01/22 Ca Carbonate/Vitamin D3/Vit K 2 each PO BID 05/17/13 08/01/22 [Viactiv Soft Chew Tablet] Cetirizine [ZyrTEC] 10 mg PO BID 05/17/13 08/01/22 Ibuprofen 400 mg PO QID PRN 05/17/13 08/01/22 Vitamin B Complex [B Complex] 1 each PO DAILY 05/17/13 08/01/22 Glucosam/Chondr-Msm6/Manganese 1 each PO DAILY 06/19/15 08/01/22 [Glucosamine-Chondroitin Sftgl] Magnesium 500 mg PO DAILY 06/19/15 08/01/22 Ondansetron Odt [Zofran Odt] 4 - 8 mg TL Q8H PRN 08/01/22 08/01/22 Prochlorperazine Maleate 10 mg PO Q6H PRN 08/01/22 08/01/22 [Compazine] predniSONE [Deltasone] 40 mg PO DAILY 08/01/22 08/01/22 - Allergies Allergies/Adverse Reactions: Allergies Allergy/AdvReac Type Severity Reaction Status Date / Time Cephalosporins Allergy Rash Verified 08/01/22 12:07 Iodinated Contrast Media Allergy Edema Verified 08/01/22 12:07 bandaids Allergy Itching Uncoded 08/01/22 11:40 Review of Systems - All Other Systems All Other Systems: reports: Reviewed and negative Prior Level of Functionality: Up until yesterday, she was still able to complete all of her activities of daily living, did not use any durable medical equipment, drove a car, and was self-sufficient. Exam - Vital Signs Reviewed Vital Signs: Yes Vital Signs: Vital Signs x48h Temp Pulse Resp BP Pulse Ox 08/01/22 12:18 96 18 08/01/22 10:34 36.6 C 91 14 144/53 H 96 - Physical Exam General Appearance: positive: Alert, Other (Elderly female who looks older than stated age with alopecia, orbits and temples are sunken. Dry lips, dry mouth. Wearing eyeglasses. Her son is at the bedside. She is in no acute distress.) Eyes Bilateral: positive: PERRL, EOMI ENT: positive: Dry mucous membranes Neck: positive: No JVD. negative: Stiff neck Respiratory: positive: No respiratory distress. negative: Wheezes, Rales, Rhonchi Cardiovascular: positive: Regular rate & rhythm, Systolic murmur Peripheral Pulses: positive: 1+ Abdomen: positive: Non-tender, No organomegaly, Nml bowel sounds, No distention Skin: positive: Warm, Dry, Other (The lesions are circular, red, nonblanching central flaking. A few have ulcerated along the right side of her face. They are not confluent except on the right side of her face.) Extremities: positive: Full ROM, No pedal edema Neurologic/Psychiatric: positive: Oriented x3, CN's nml (2-12), Motor nml Sepsis Event Note (H) - Evaluation Current Stage of Sepsis: Ruled out Conclusion/Plan - Problem List (1) DKA (diabetic ketoacidosis) Conclusion/Plan: This woman does not have any history of type 2 diabetes mellitus. She is followed assiduously for her cancer treatment and her labs do not indicate diabetes. She was started on steroids 2 days ago and I would think that st eroids, for 2 days, would not cause DKA. Nevertheless, she has is acidotic, dehydrated, and needs further work-up to make sure that it is not to steroids. Plan: Inpatient status Check troponins Check UA for UTI Place in ICU for insulin drip. 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 She is probably hyperosmolar. I would expect her to be hypokalemic in the face of nausea and vomiting. She is not on spironolactone. She is not on an ISA inhibitor. At this time she can be started on insulin drip safely. Potassium is elevated enough. Potassium will most likely be driven into her cells once insulin drip is starte d. Her first 3 L of fluid will be without potassium. Start potassium after the first 3 L and monitor closely to replace (3) Depression with anxiety Conclusion/Plan: Longstanding duration. Patient has been taking alprazolam 0.25 daily for a few years now. I will resume that medication. 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 Scattered throughout forearms. 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 She has been followed by dermatology Elma Goodwin with [facility]. Biopsy was done. 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 Hence the steroids that were started yesterday. At this time I am deferring on resuming her steroids. Once we get her glucose under control we may be able to resume steroids. However the patient is going to have to learn how to give himself insulin to control her diabetes that is new. We are hoping that this is a steroid-induced hyperglycemia, and when she is off the steroids her hyperglycemia will resolve (5) YOLETTE (acute kidney injury) Conclusion/Plan: From severe dehydration. Baseline creatinine is usually 0.9. On physical examination she has profoundly dry cracked lips, dry oral mucosa. Eyes are shrunken and sunken to her head. So are her temples. Plan: Aggressive hydration is already planned through the insulin drip protocol. That will be continued until her BUN and creatinine is normal. (6) Breast cancer metastasized to lung Conclusion/Plan: Very unusual case. This patient presented close to 2 decades after her initial diagnosis. She says that it is not a new primary. It is recurrent breast cancer. Keytruda is used in triple negative cancer that cannot be surgically removed and has failed other chemotherapy. Plan: She will be followed by her oncologist. She presents with vague systemic complaints of nausea, decreased appetite, fatigue, and can all be associated with Keytruda. Abdominal pain with diarrhea can be part of Keytruda side effects. But this seems to be in association with hyperglycemia. And the Keytruda was stopped 7 weeks ago. - Lab Results Lab results reviewed: Yes Fish Bones: 08/01/22 11:35 08/01/22 15:57 Core Measures - Anticipated LOS I expect patient to be DC'd or transferred within 96 hours.: Yes - DVT/VTE - Prophylaxis VTE/DVT Prophylaxis med ordered at admit?: Yes
[2022-08-01] MEDS ORDERED: oxyCODONE 5 MG TABLET PO PRN (13:12)
[2022-08-01] MEDS ORDERED: ACETAMINOPHEN 325 MG TABLET PO PRN (13:12)
[2022-08-01] MEDS ORDERED: ONDANSETRON ODT 4 MG TABLET TL PRN (13:12)
[2022-08-01 13:34] LABS: BILIRUBIN,URINE NEGATIVE (NEGATIVE); GLUCOSE, URINE (UA) >=1000 mg/dL (NEGATIVE); KETONES,URINE (UA) 40 mg/dL (NEGATIVE); LEUKOCYTE ESTERASE, URINE NEGATIVE (NEGATIVE); NITRITE,URINE NEGATIVE (NEGATIVE); OCCULT BLOOD,URINE LARGE (NEGATIVE); PH,URINE 5.5 PH (5.0-7.5); PROTEIN,URINE 30 mg/dL (NEGATIVE); UROBILINOGEN,URINE 0.2 (NORMAL) E.U./dL (NORMAL)
[2022-08-01 13:54] LABS: BACTERIA,URINE Rare /HPF (None Seen); CLARITY,URINE CLEAR (CLEAR); SQUAMOUS EPITHELIAL CELL,UR RARE Squamous (<= Few)
[2022-08-01 13:55] LABS: CASTS, URINE 11-25 Hyaline Casts /LPF
[2022-08-01] MEDS ORDERED: SODIUM CHLORIDE 0.9% 1,000 ML IV SCH (14:00)
[2022-08-01 14:02] LABS: VBG BASE EXCESS -24.8 mmol/L (-2 - +2); VBG HCO3 5.2 mmol/L (23-28); VBG PO2 59.2 mmHg (25-47); VBG TOTAL CO2 5.9 mmol/L (24-29)
[2022-08-01 14:05] LABS: VBG PH 6.991 (7.31-7.41)
[2022-08-01 14:15] LABS: CALCIUM 8.4 mg/dL (8.5-10.3); CREATININE 1.6 mg/dL (0.4-1.0); POTASSIUM 4.6 mmol/L (3.5-5.0)
[2022-08-01] MEDS: INSULIN REGULAR IN 0.9 % NS 100 UNIT/100 ML BAG IV SCH ×2 (14:52→20:00)
[2022-08-01] MEDS: DEXTROSE 5%-0.9% NACL 1,000 ML IV SCH ×2 (14:52→21:09)
--- NOTE | 2022-08-01 15:59 | PHARMACY PROGRESS NOTE ---
- Best Possible Medication History Admit Date and Time: 08/01/22 1312 Processed by: Pharmacy Medication History completed: Yes Patient Interview: Completed Secondary Source(s): Pharmacy records, Insurance records As the person ultimately responsible for medication therapy, providers are able to order a medication from an existing home medication list in [facility] via the "Reconcile Routine" prior to Confirmation of that medication by application support lead. Such practice is discouraged except when the physician, in their clinical judgment, deems that a medical need exists for a medication without regard to previous use.
[2022-08-01 16:02] LABS: CALCIUM, IONIZED 1.19 mmol/L (1.15-1.33)
[2022-08-01 16:05] LABS: VBG PH 7.152 (7.31-7.41)
[2022-08-01 16:18] LABS: CALCIUM 7.9 mg/dL (8.5-10.3); CREATININE 1.3 mg/dL (0.4-1.0); MAGNESIUM 2.2 mg/dL (1.7-2.8); PHOSPHORUS 2.1 mg/dL (2.5-4.6); POTASSIUM 4.1 mmol/L (3.5-5.0)
[2022-08-01] MEDS ORDERED: POTASSIUM PHOSPHATE 15 MMOL in SODIUM CHLORIDE 0.9% 250 ML IV ONE (16:52)
[2022-08-01] MEDS: SODIUM CHLORIDE FLUSH 0.9% 10 ML SYRINGE IVP SCH ×2 (17:13→23:27)
[2022-08-01 19:15] LABS: BUN - BLOOD UREA NITROGEN 44 mg/dL (6-20); CALCIUM 7.8 mg/dL (8.5-10.3); CARBON DIOXIDE - CO2 15 mmol/L (21-32); CHLORIDE 113 mmol/L (101-111); GFR - MDRD 55 (>89); GLUCOSE 257 mg/dL (70-100); IONIZED CALCIUM IF INDICATED YES; MAGNESIUM 2.1 mg/dL (1.7-2.8); PHOSPHORUS 1.3 mg/dL (2.5-4.6); POTASSIUM 3.6 mmol/L (3.5-5.0); SODIUM 135 mmol/L (135-145)
[2022-08-01 19:31] LABS: CALCIUM, IONIZED 1.15 mmol/L (1.15-1.33); VBG PH 7.286 (7.31-7.41)
[2022-08-01] MEDS ORDERED: POTASSIUM CHLOR 20 MEQ/100 ML 20 MEQ/100 ML BAG IV ONE (20:00)
[2022-08-01] MEDS: FAMOTIDINE 20 MG/2 ML VIAL IVP SCH (20:25)
[2022-08-01] MEDS: SODIUM CHLORIDE FLUSH 0.9% 10 ML SYRINGE IVP PRN (23:27)
[2022-08-01 23:48] LABS: PHOSPHORUS 1.6 mg/dL (2.5-4.6); POTASSIUM 4.5 mmol/L (3.5-5.0)
[2022-08-02] MEDS: SODIUM CHLORIDE FLUSH 0.9% 10 ML SYRINGE IVP PRN ×2 (05:18→22:06)
[2022-08-02 05:33] LABS: CALCIUM, IONIZED 1.19 mmol/L (1.15-1.33); VBG PH 7.32 (7.31-7.41)
[2022-08-02 05:40] LABS: BASOPHILS # (AUTO) 0.1 10^3/uL (0.0-0.1); BASOPHILS % (AUTO) 0.6 %; HCT - HEMATOCRIT 27.4 % (37.0-47.0); HGB - HEMOGLOBIN 9.1 g/dL (12.0-16.0); LYMPHOCYTES # (AUTO) 0.6 10^3/uL (1.5-3.5); LYMPHOCYTES % (AUTO) 3.2 %; MEAN CORPUSCULAR HEMOGLOBIN 32.2 pg (27.0-31.0); MEAN CORPUSCULAR HGB CONC 33.2 g/dL (32.0-36.0); MEAN CORPUSCULAR VOLUME 96.8 fL (81.0-99.0); MEAN PLATELET VOLUME 9.8 fL (7.9-10.8); MONOCYTES # (AUTO) 0.3 10^3/uL (0.0-1.0); MONOCYTES % (AUTO) 1.9 %; NEUTROPHILS # (AUTO) 15.9 10^3/uL (1.5-6.6); NEUTROPHILS % (AUTO) 92.4 %; PLT - PLATELET COUNT 122 10^3/uL (130-450); RED BLOOD COUNT 2.83 10^6/uL (4.20-5.40); RED CELL DISTRIBUTION WIDTH 14.6 % (12.0-15.0); WHITE BLOOD COUNT 17.2 x10^3/uL (4.8-10.8)
[2022-08-02] MEDS: DEXTROSE 5%-0.9% NACL 1,000 ML IV SCH ×2 (05:51→16:26)
[2022-08-02 05:57] LABS: CALCIUM 7.9 mg/dL (8.5-10.3); CREATININE 0.8 mg/dL (0.4-1.0); MAGNESIUM 2.2 mg/dL (1.7-2.8); PHOSPHORUS 1.1 mg/dL (2.5-4.6); POTASSIUM 3.6 mmol/L (3.5-5.0)
[2022-08-02] MEDS: INSULIN REGULAR IN 0.9 % NS 100 UNIT/100 ML BAG IV SCH (05:57)
[2022-08-02] MEDS ORDERED: POTASSIUM CHLOR 20 MEQ/100 ML 20 MEQ/100 ML BAG IV ONE (06:18)
[2022-08-02] MEDS ORDERED: SODIUM PHOSPHATE 21 MMOL in SODIUM CHLORIDE 0.9% 250 ML IV ONE (07:00)
[2022-08-02] MEDS: SODIUM CHLORIDE FLUSH 0.9% 10 ML SYRINGE IVP SCH ×4 (10:01→22:06)
[2022-08-02] MEDS: FAMOTIDINE 20 MG/2 ML VIAL IVP SCH (10:01)
[2022-08-02] MEDS: ENOXAPARIN 40 MG/0.4 ML SYRINGE SUBQ SCH (10:27)
[2022-08-02] MEDS ORDERED: IBUPROFEN 400 MG TABLET PO PRN (12:12)
[2022-08-02] MEDS: INSULIN LISPRO 300 UNIT/3 ML PEN SUBQ SCH ×3 (12:28→20:57)
[2022-08-02] MEDS: TRIAMCINOLONE 0.1% CREAM 15 GM TUBE TOP SCH ×2 (12:36→20:58)
[2022-08-02] MEDS: CLOBETASOL 0.05% OINT 15 GM TUBE TOP SCH (12:36)
--- NOTE | 2022-08-02 12:53 | PROVIDER PROGRESS NOTE ---
Subjective - Prog Note Date Prog Note Date: 08/02/22 Prog Note Time: 12:53 - Subjective Pt reports feeling: Improved Subjective: She would like some of her home medications resumed. On the pharmacy reconciled list there are some medications that have been left off. Clobetasol 0.05% ointment for lesions on her body, 0.1% triamcinolone for lesions on her face. She also uses sulfacetamide lotion for adult acne, and metronidazole lotion for rosacea. Insulin drip management discussed below. It is time to switch her over to diet. This is a new diagnosis for her. 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 She is willing to come off oral steroids and only deal with topical creams for her rash. She is still hoping that she does not have to go home with insulin. Current Medications - Current Medications Current Medications: Active Medications Acetaminophen (Acetaminophen 325 Mg Tablet) 650 mg PO Q4HR PRN PRN Reason: Pain 1 to 4, or Fever Cetirizine HCl (Cetirizine 10 Mg Tablet) 10 mg PO BID [facility] Clobetasol Propionate (Clobetasol 0.05% Oint 15 Gm Tube) 1 applic TOP DAILY [facility] Last Admin: 08/02/22 12:36 Dose: 1 applic Enoxaparin Sodium (Enoxaparin 40 Mg/0.4 Ml Syringe) 40 mg SUBQ DAILY [facility] Last Admin: 08/02/22 10:27 Dose: 40 mg Famotidine (Famotidine 20 Mg/2 Ml Vial) 20 mg IVP BID [facility] Last Admin: 08/02/22 10:01 Dose: 20 mg Fluticasone Propionate (Fluticasone Nasal [place]) 2 sprays DOMITILA DAILY [facility] Dextrose/Sodium Chloride (D5ns) 1,000 mls @ 125 mls/hr IV .Q8H [facility] Last Infusion: 08/02/22 12:00 Dose: 125 mls/hr Insulin Human Regular (Myxredlin 100 Unit/100 Ml Bag) 100 unit in 100 mls @ 6 mls/hr IV .[id number] [facility]; Protocol Last Titration: 08/02/22 12:00 Dose: 0 unit/hr, 0 mls/hr Ibuprofen (Ibuprofen 400 Mg Tablet) 400 mg PO QID PRN PRN Reason: PAIN 5-7 Insulin Human Lispro (Insulin Lispro 300 Unit/3 Ml Pen) 3 - 11 unit SUBQ 0800,1200,1700,2100 [facility]; Protocol Last Admin: 08/02/22 12:28 Dose: 3 unit Magnesium Oxide (Magnesium Oxide 400 Mg Tablet) 400 mg PO DAILYWM [facility] Last Admin: 08/02/22 12:35 Dose: 400 mg Ondansetron HCl (Ondansetron Odt 4 Mg Tablet) 4 mg TL Q6HR PRN PRN Reason: Nausea / Vomiting Oxycodone HCl (Oxycodone 5 Mg Tablet) 5 mg PO Q4HR PRN PRN Reason: Pain 5 to 7 Sodium Chloride (Sodium Chloride Flush 0.9% 10 Ml Syringe) 10 ml IVP 0100,0900,1700 [facility] Last Admin: 08/02/22 10:01 Dose: 10 ml Sodium Chloride (Sodium Chloride Flush 0.9% 10 Ml Syringe) 10 ml IVP PRN PRN PRN Reason: NEEDED PER PROVIDER ORDERS Last Admin: 08/02/22 05:18 Dose: 30 ml Triamcinolone Acetonide (Triamcinolone 0.1% Cream 15 Gm Tube) 1 applic TOP BID [facility] Last Admin: 08/02/22 12:36 Dose: 1 applic Alprazolam 0.25 mg PO QPM PRN 05/17/13 Ca Carbonate/Vitamin D3/Vit K [Viactiv Soft Chew Tablet] 2 each PO BID 05/17/13 Cetirizine [ZyrTEC] 10 mg PO BID 05/17/13 Ibuprofen 400 mg PO QID PRN 05/17/13 Vitamin B Complex [B Complex] 1 each PO DAILY 05/17/13 Glucosam/Chondr-Msm6/Manganese [Glucosamine-Chondroitin Sftgl] 1 each PO DAILY 06/19/15 Magnesium 500 mg PO DAILY 06/19/15 Ondansetron Odt [Zofran Odt] 4 - 8 mg TL Q8H PRN 08/01/22 Prochlorperazine Maleate [Compazine] 10 mg PO Q6H PRN 08/01/22 predniSONE [Deltasone] 40 mg PO DAILY 08/01/22 Objective - Vital Signs/Intake & Output Reviewed Vital Signs: Yes Vital Signs: Vital Signs x48h Temp Pulse Resp BP Pulse Ox 08/02/22 12:00 78 19 122/48 L 100 08/02/22 11:00 78 25 H 138/56 H 100 08/02/22 10:00 79 23 127/51 L 100 08/02/22 09:00 75 15 132/65 H 100 08/02/22 08:39 36.8 C 08/02/22 08:00 83 16 122/47 L 100 08/02/22 07:00 77 14 103/49 L 100 08/02/22 06:00 36.7 C 75 26 H 112/50 L 100 08/02/22 05:00 82 16 111/51 L 100 Intake & Output: Intake & Output 07/30/22 07/31/22 08/01/22 08/02/22 23:59 23:59 23:59 23:59 Intake Total 3339.600 2795.951 Output Total 0 0 Balance 3339.600 2795.951 - Objective General Appearance: positive: Alert, Other (Son has brought in all of her bottles of pills, and creams so that nursing and pharmacy can look at them. He is at the bedside. He had no questions.) Eyes Bilateral: positive: PERRL, EOMI ENT: positive: No signs of dehydration (Much improved from yesterday when lips are dry and cracked, and oral mucosa was dry and cracked), Other (Her teeth and lips are blood red from the Jell-O she is eating. It was alarming at first because I thought it was blood.) Neck: positive: No JVD Respiratory: positive: No respiratory distress. negative: Wheezes, Rales, Rhonchi Cardiovascular: positive: Regular rate & rhythm, Systolic murmur Abdomen: positive: Non-tender, No organomegaly, Nml bowel sounds, No distention Skin: positive: Warm, Dry, Other (I thought at first that the sweets rash was only on arms, face, but she has extensive spread on her back. Very scattered minimal dots on her legs.) Extremities: positive: Full ROM, No pedal edema Neurologic/Psychiatric: positive: Oriented x3, CN's nml (2-12), Motor nml - Lab Results Fish Bones: 08/02/22 05:20 08/02/22 05:20 Other Labs: Lab Results x24hrs 08/02/22 08/02/22 08/02/22 Range/Units 06:02 05:20 05:20 WBC (4.8-10.8) x10^3/uL RBC (4.20-5.40) 10^6/uL Hgb (12.0-16.0) g/dL Hct (37.0-47.0) % MCV (81.0-99.0) fL MCH (27.0-31.0) pg MCHC (32.0-36.0) g/dL RDW (12.0-15.0) % Plt Count (130-450) 10^3/uL MPV (7.9-10.8) fL Neut # (Auto) (1.5-6.6) 10^3/uL Lymph # (Auto) (1.5-3.5) 10^3/uL Mathews # (Auto) (0.0-1.0) 10^3/uL Eos # (Auto) (0.0-0.7) 10^3/uL Baso # (Auto) (0.0-0.1) 10^3/uL Absolute Nucleated RBC x10^3/uL Nucleated RBC % /100WBC VBG pH 7.320 (7.31-7.41) VBG pCO2 (41-51) mmHg VBG pO2 (25-47) mmHg VBG HCO3 (23-28) mmol/L VBG Total CO2 (24-29) mmol/L VBG O2 Saturation (60-80) % VBG Base Excess (-2 - +2) mmol/L Ionized Calcium 1.19 (1.15-1.33) mmol/L Sodium 138 (135-145) mmol/L Potassium 3.6 (3.5-5.0) mmol/L Chloride 117 H (101-111) mmol/L Carbon Dioxide 18 L (21-32) mmol/L Anion Gap 3.0 L (6-13) BUN 29 H (6-20) mg/dL Creatinine 0.8 (0.4-1.0) mg/dL Estimated GFR (MDRD) 71 L (>89) Glucose 257 H (70-100) mg/dL POC Whole Bld Glucose 204 H (70 - 100) mg/dL Calcium 7.9 L (8.5-10.3) mg/dL Phosphorus 1.1 L (2.5-4.6) mg/dL Magnesium 2.2 (1.7-2.8) mg/dL Troponin I High Sens (2.3-14.8) ng/L Urine Color Urine Clarity (CLEAR) Urine pH (5.0-7.5) PH Ur Specific [place] (1.002-1.030) Urine Protein (NEGATIVE) mg/dL Urine Glucose (UA) (NEGATIVE) mg/dL Urine Ketones (NEGATIVE) mg/dL Urine Occult Blood (NEGATIVE) Urine Nitrite (NEGATIVE) Urine Bilirubin (NEGATIVE) Urine Urobilinogen (NORMAL) E.U./dL Ur Leukocyte Esterase (NEGATIVE) Urine RBC (0-5) /HPF Urine WBC (0-5) /HPF Ur Squamous Epith Cells (<= Few) Urine Bacteria (None Seen) /HPF Urine Casts /LPF Ur Microscopic Review Urine Culture Comments Nasal Screen MRSA (PCR) (NEGATIVE) 08/02/22 08/02/22 08/02/22 Range/Units 05:20 04:02 03:01 WBC 17.2 H (4.8-10.8) x10^3/uL RBC 2.83 L (4.20-5.40) 10^6/uL Hgb 9.1 L (12.0-16.0) g/dL Hct 27.4 L (37.0-47.0) % MCV 96.8 (81.0-99.0) fL MCH 32.2 H (27.0-31.0) pg MCHC 33.2 (32.0-36.0) g/dL RDW 14.6 (12.0-15.0) % Plt Count 122 L (130-450) 10^3/uL MPV 9.8 (7.9-10.8) fL Neut # (Auto) 15.9 H (1.5-6.6) 10^3/uL Lymph # (Auto) 0.6 L (1.5-3.5) 10^3/uL Mathews # (Auto) 0.3 (0.0-1.0) 10^3/uL Eos # (Auto) 0.0 (0.0-0.7) 10^3/uL Baso # (Auto) 0.1 (0.0-0.1) 10^3/uL Absolute Nucleated RBC 0.00 x10^3/uL Nucleated RBC % 0.0 /100WBC VBG pH (7.31-7.41) VBG pCO2 (41-51) mmHg VBG pO2 (25-47) mmHg VBG HCO3 (23-28) mmol/L VBG Total CO2 (24-29) mmol/L VBG O2 Saturation (60-80) % VBG Base Excess (-2 - +2) mmol/L Ionized Calcium (1.15-1.33) mmol/L Sodium (135-145) mmol/L Potassium (3.5-5.0) mmol/L Chloride (101-111) mmol/L Carbon Dioxide (21-32) mmol/L Anion Gap (6-13) BUN (6-20) mg/dL Creatinine (0.4-1.0) mg/dL Estimated GFR (MDRD) (>89) Glucose (70-100) mg/dL POC Whole Bld Glucose 244 H 258 H (70 - 100) mg/dL Calcium (8.5-10.3) mg/dL Phosphorus (2.5-4.6) mg/dL Magnesium (1.7-2.8) mg/dL Troponin I High Sens (2.3-14.8) ng/L Urine Color Urine Clarity (CLEAR) Urine pH (5.0-7.5) PH Ur Specific [place] (1.002-1.030) Urine Protein (NEGATIVE) mg/dL Urine Glucose (UA) (NEGATIVE) mg/dL Urine Ketones (NEGATIVE) mg/dL Urine Occult Blood (NEGATIVE) Urine Nitrite (NEGATIVE) Urine Bilirubin (NEGATIVE) Urine Urobilinogen (NORMAL) E.U./dL Ur Leukocyte Esterase (NEGATIVE) Urine RBC (0-5) /HPF Urine WBC (0-5) /HPF Ur Squamous Epith Cells (<= Few) Urine Bacteria (None Seen) /HPF Urine Casts /LPF Ur Microscopic Review Urine Culture Comments Nasal Screen MRSA (PCR) (NEGATIVE) 08/02/22 08/01/22 08/01/22 Range/Units 02:06 23:29 23:29 WBC (4.8-10.8) x10^3/uL RBC (4.20-5.40) 10^6/uL Hgb (12.0-16.0) g/dL Hct (37.0-47.0) % MCV (81.0-99.0) fL MCH (27.0-31.0) pg MCHC (32.0-36.0) g/dL RDW (12.0-15.0) % Plt Count (130-450) 10^3/uL MPV (7.9-10.8) fL Neut # (Auto) (1.5-6.6) 10^3/uL Lymph # (Auto) (1.5-3.5) 10^3/uL Mathews # (Auto) (0.0-1.0) 10^3/uL Eos # (Auto) (0.0-0.7) 10^3/uL Baso # (Auto) (0.0-0.1) 10^3/uL Absolute Nucleated RBC x10^3/uL Nucleated RBC % /100WBC VBG pH (7.31-7.41) VBG pCO2 (41-51) mmHg VBG pO2 (25-47) mmHg VBG HCO3 (23-28) mmol/L VBG Total CO2 (24-29) mmol/L VBG O2 Saturation (60-80) % VBG Base Excess (-2 - +2) mmol/L Ionized Calcium (1.15-1.33) mmol/L Sodium (135-145) mmol/L Potassium 4.5 (3.5-5.0) mmol/L Chloride (101-111) mmol/L Carbon Dioxide (21-32) mmol/L Anion Gap (6-13) BUN (6-20) mg/dL Creatinine (0.4-1.0) mg/dL Estimated GFR (MDRD) (>89) Glucose (70-100) mg/dL POC Whole Bld Glucose 274 H (70 - 100) mg/dL Calcium (8.5-10.3) mg/dL Phosphorus 1.6 L (2.5-4.6) mg/dL Magnesium 2.1 (1.7-2.8) mg/dL Troponin I High Sens (2.3-14.8) ng/L Urine Color Urine Clarity (CLEAR) Urine pH (5.0-7.5) PH Ur Specific [place] (1.002-1.030) Urine Protein (NEGATIVE) mg/dL Urine Glucose (UA) (NEGATIVE) mg/dL Urine Ketones (NEGATIVE) mg/dL Urine Occult Blood (NEGATIVE) Urine Nitrite (NEGATIVE) Urine Bilirubin (NEGATIVE) Urine Urobilinogen (NORMAL) E.U./dL Ur Leukocyte Esterase (NEGATIVE) Urine RBC (0-5) /HPF Urine WBC (0-5) /HPF Ur Squamous Epith Cells (<= Few) Urine Bacteria (None Seen) /HPF Urine Casts /LPF Ur Microscopic Review Urine Culture Comments Nasal Screen MRSA (PCR) (NEGATIVE) 08/01/22 08/01/22 08/01/22 Range/Units 22:02 20:56 19:54 WBC (4.8-10.8) x10^3/uL RBC (4.20-5.40) 10^6/uL Hgb (12.0-16.0) g/dL Hct (37.0-47.0) % MCV (81.0-99.0) fL MCH (27.0-31.0) pg MCHC (32.0-36.0) g/dL RDW (12.0-15.0) % Plt Count (130-450) 10^3/uL MPV (7.9-10.8) fL Neut # (Auto) (1.5-6.6) 10^3/uL Lymph # (Auto) (1.5-3.5) 10^3/uL Mathews # (Auto) (0.0-1.0) 10^3/uL Eos # (Auto) (0.0-0.7) 10^3/uL Baso # (Auto) (0.0-0.1) 10^3/uL Absolute Nucleated RBC x10^3/uL Nucleated RBC % /100WBC VBG pH (7.31-7.41) VBG pCO2 (41-51) mmHg VBG pO2 (25-47) mmHg VBG HCO3 (23-28) mmol/L VBG Total CO2 (24-29) mmol/L VBG O2 Saturation (60-80) % VBG Base Excess (-2 - +2) mmol/L Ionized Calcium (1.15-1.33) mmol/L Sodium (135-145) mmol/L Potassium (3.5-5.0) mmol/L Chloride (101-111) mmol/L Carbon Dioxide (21-32) mmol/L Anion Gap (6-13) BUN (6-20) mg/dL Creatinine (0.4-1.0) mg/dL Estimated GFR (MDRD) (>89) Glucose (70-100) mg/dL POC Whole Bld Glucose 88 112 H 201 H (70 - 100) mg/dL Calcium (8.5-10.3) mg/dL Phosphorus (2.5-4.6) mg/dL Magnesium (1.7-2.8) mg/dL Troponin I High Sens (2.3-14.8) ng/L Urine Color Urine Clarity (CLEAR) Urine pH (5.0-7.5) PH Ur Specific [place] (1.002-1.030) Urine Protein (NEGATIVE) mg/dL Urine Glucose (UA) (NEGATIVE) mg/dL Urine Ketones (NEGATIVE) mg/dL Urine Occult Blood (NEGATIVE) Urine Nitrite (NEGATIVE) Urine Bilirubin (NEGATIVE) Urine Urobilinogen (NORMAL) E.U./dL Ur Leukocyte Esterase (NEGATIVE) Urine RBC (0-5) /HPF Urine WBC (0-5) /HPF Ur Squamous Epith Cells (<= Few) Urine Bacteria (None Seen) /HPF Urine Casts /LPF Ur Microscopic Review Urine Culture Comments Nasal Screen MRSA (PCR) (NEGATIVE) 08/01/22 08/01/22 08/01/22 Range/Units 18:55 18:50 18:50 WBC (4.8-10.8) x10^3/uL RBC (4.20-5.40) 10^6/uL Hgb (12.0-16.0) g/dL Hct (37.0-47.0) % MCV (81.0-99.0) fL MCH (27.0-31.0) pg MCHC (32.0-36.0) g/dL RDW (12.0-15.0) % Plt Count (130-450) 10^3/uL MPV (7.9-10.8) fL Neut # (Auto) (1.5-6.6) 10^3/uL Lymph # (Auto) (1.5-3.5) 10^3/uL Mathews # (Auto) (0.0-1.0) 10^3/uL Eos # (Auto) (0.0-0.7) 10^3/uL Baso # (Auto) (0.0-0.1) 10^3/uL Absolute Nucleated RBC x10^3/uL Nucleated RBC % /100WBC VBG pH 7.286 L (7.31-7.41) VBG pCO2 (41-51) mmHg VBG pO2 (25-47) mmHg VBG HCO3 (23-28) mmol/L VBG Total CO2 (24-29) mmol/L VBG O2 Saturation (60-80) % VBG Base Excess (-2 - +2) mmol/L Ionized Calcium 1.15 YES (1.15-1.33) mmol/L Sodium 135 (135-145) mmol/L Potassium 3.6 (3.5-5.0) mmol/L Chloride 113 H (101-111) mmol/L Carbon Dioxide 15 L (21-32) mmol/L Anion Gap 7.0 (6-13) BUN 44 H (6-20) mg/dL Creatinine 1.0 (0.4-1.0) mg/dL Estimated GFR (MDRD) 55 L (>89) Glucose 257 H (70-100) mg/dL POC Whole Bld Glucose 233 H (70 - 100) mg/dL Calcium 7.8 L (8.5-10.3) mg/dL Phosphorus 1.3 L (2.5-4.6) mg/dL Magnesium 2.1 (1.7-2.8) mg/dL Troponin I High Sens (2.3-14.8) ng/L Urine Color Urine Clarity (CLEAR) Urine pH (5.0-7.5) PH Ur Specific [place] (1.002-1.030) Urine Protein (NEGATIVE) mg/dL Urine Glucose (UA) (NEGATIVE) mg/dL Urine Ketones (NEGATIVE) mg/dL Urine Occult Blood (NEGATIVE) Urine Nitrite (NEGATIVE) Urine Bilirubin (NEGATIVE) Urine Urobilinogen (NORMAL) E.U./dL Ur Leukocyte Esterase (NEGATIVE) Urine RBC (0-5) /HPF Urine WBC (0-5) /HPF Ur Squamous Epith Cells (<= Few) Urine Bacteria (None Seen) /HPF Urine Casts /LPF Ur Microscopic Review Urine Culture Comments Nasal Screen MRSA (PCR) (NEGATIVE) 08/01/22 08/01/2208/01/23 Range/Units 18:01 17:02 15:57 WBC (4.8-10.8) x10^3/uL RBC (4.20-5.40) 10^6/uL Hgb (12.0-16.0) g/dL Hct (37.0-47.0) % MCV (81.0-99.0) fL MCH (27.0-31.0) pg MCHC (32.0-36.0) g/dL RDW (12.0-15.0) % Plt Count (130-450) 10^3/uL MPV (7.9-10.8) fL Neut # (Auto) (1.5-6.6) 10^3/uL Lymph # (Auto) (1.5-3.5) 10^3/uL Mathews # (Auto) (0.0-1.0) 10^3/uL Eos # (Auto) (0.0-0.7) 10^3/uL Baso # (Auto) (0.0-0.1) 10^3/uL Absolute Nucleated RBC x10^3/uL Nucleated RBC % /100WBC VBG pH 7.152 L (7.31-7.41) VBG pCO2 (41-51) mmHg VBG pO2 (25-47) mmHg VBG HCO3 (23-28) mmol/L VBG Total CO2 (24-29) mmol/L VBG O2 Saturation (60-80) % VBG Base Excess (-2 - +2) mmol/L Ionized Calcium 1.19 (1.15-1.33) mmol/L Sodium (135-145) mmol/L Potassium (3.5-5.0) mmol/L Chloride (101-111) mmol/L Carbon Dioxide (21-32) mmol/L Anion Gap (6-13) BUN (6-20) mg/dL Creatinine (0.4-1.0) mg/dL Estimated GFR (MDRD) (>89) Glucose (70-100) mg/dL POC Whole Bld Glucose 281 H 370 H (70 - 100) mg/dL Calcium (8.5-10.3) mg/dL Phosphorus (2.5-4.6) mg/dL Magnesium (1.7-2.8) mg/dL Troponin I High Sens (2.3-14.8) ng/L Urine Color Urine Clarity (CLEAR) Urine pH (5.0-7.5) PH Ur Specific [place] (1.002-1.030) Urine Protein (NEGATIVE) mg/dL Urine Glucose (UA) (NEGATIVE) mg/dL Urine Ketones (NEGATIVE) mg/dL Urine Occult Blood (NEGATIVE) Urine Nitrite (NEGATIVE) Urine Bilirubin (NEGATIVE) Urine Urobilinogen (NORMAL) E.U./dL Ur Leukocyte Esterase (NEGATIVE) Urine RBC (0-5) /HPF Urine WBC (0-5) /HPF Ur Squamous Epith Cells (<= Few) Urine Bacteria (None Seen) /HPF Urine Casts /LPF Ur Microscopic Review Urine Culture Comments Nasal Screen MRSA (PCR) (NEGATIVE) 08/01/22 08/01/22 08/01/22 Range/Units 15:57 15:01 14:22 WBC (4.8-10.8) x10^3/uL RBC (4.20-5.40) 10^6/uL Hgb (12.0-16.0) g/dL Hct (37.0-47.0) % MCV (81.0-99.0) fL MCH (27.0-31.0) pg MCHC (32.0-36.0) g/dL RDW (12.0-15.0) % Plt Count (130-450) 10^3/uL MPV (7.9-10.8) fL Neut # (Auto) (1.5-6.6) 10^3/uL Lymph # (Auto) (1.5-3.5) 10^3/uL Mathews # (Auto) (0.0-1.0) 10^3/uL Eos # (Auto) (0.0-0.7) 10^3/uL Baso # (Auto) (0.0-0.1) 10^3/uL Absolute Nucleated RBC x10^3/uL Nucleated RBC % /100WBC VBG pH (7.31-7.41) VBG pCO2 (41-51) mmHg VBG pO2 (25-47) mmHg VBG HCO3 (23-28) mmol/L VBG Total CO2 (24-29) mmol/L VBG O2 Saturation (60-80) % VBG Base Excess (-2 - +2) mmol/L Ionized Calcium (1.15-1.33) mmol/L Sodium 137 (135-145) mmol/L Potassium 4.1 (3.5-5.0) mmol/L Chloride 113 H (101-111) mmol/L Carbon Dioxide 9 L* (21-32) mmol/L Anion Gap 15.0 H (6-13) BUN 47 H (6-20) mg/dL Creatinine 1.3 H (0.4-1.0) mg/dL Estimated GFR (MDRD) 40 L (>89) Glucose 442 H (70-100) mg/dL POC Whole Bld Glucose 485 H (70 - 100) mg/dL Calcium 7.9 L (8.5-10.3) mg/dL Phosphorus 2.1 L (2.5-4.6) mg/dL Magnesium 2.2 (1.7-2.8) mg/dL Troponin I High Sens (2.3-14.8) ng/L Urine Color Urine Clarity (CLEAR) Urine pH (5.0-7.5) PH Ur Specific [place] (1.002-1.030) Urine Protein (NEGATIVE) mg/dL Urine Glucose (UA) (NEGATIVE) mg/dL Urine Ketones (NEGATIVE) mg/dL Urine Occult Blood (NEGATIVE) Urine Nitrite (NEGATIVE) Urine Bilirubin (NEGATIVE) Urine Urobilinogen (NORMAL) E.U./dL Ur Leukocyte Esterase (NEGATIVE) Urine RBC (0-5) /HPF Urine WBC (0-5) /HPF Ur Squamous Epith Cells (<= Few) Urine Bacteria (None Seen) /HPF Urine Casts /LPF Ur Microscopic Review Urine Culture Comments Nasal Screen MRSA (PCR) NEGATIVE (NEGATIVE) 08/01/22 08/01/22 08/01/22 Range/Units 13:53 13:21 13:21 WBC (4.8-10.8) x10^3/uL RBC (4.20-5.40) 10^6/uL Hgb (12.0-16.0) g/dL Hct (37.0-47.0) % MCV (81.0-99.0) fL MCH (27.0-31.0) pg MCHC (32.0-36.0) g/dL RDW (12.0-15.0) % Plt Count (130-450) 10^3/uL MPV (7.9-10.8) fL Neut # (Auto) (1.5-6.6) 10^3/uL Lymph # (Auto) (1.5-3.5) 10^3/uL Mathews # (Auto) (0.0-1.0) 10^3/uL Eos # (Auto) (0.0-0.7) 10^3/uL Baso # (Auto) (0.0-0.1) 10^3/uL Absolute Nucleated RBC x10^3/uL Nucleated RBC % /100WBC VBG pH 6.991 L (7.31-7.41) VBG pCO2 22.0 L (41-51) mmHg VBG pO2 59.2 H (25-47) mmHg VBG HCO3 5.2 L (23-28) mmol/L VBG Total CO2 5.9 L (24-29) mmol/L VBG O2 Saturation 87.0 H (60-80) % VBG Base Excess -24.8 L (-2 - +2) mmol/L Ionized Calcium (1.15-1.33) mmol/L Sodium 138 (135-145) mmol/L Potassium 4.6 (3.5-5.0) mmol/L Chloride 110 (101-111) mmol/L Carbon Dioxide 6 L* (21-32) mmol/L Anion Gap 22.0 H (6-13) BUN 51 H (6-20) mg/dL Creatinine 1.6 H (0.4-1.0) mg/dL Estimated GFR (MDRD) 32 L (>89) Glucose 630 H* (70-100) mg/dL POC Whole Bld Glucose (70 - 100) mg/dL Calcium 8.4 L (8.5-10.3) mg/dL Phosphorus (2.5-4.6) mg/dL Magnesium (1.7-2.8) mg/dL Troponin I High Sens (2.3-14.8) ng/L Urine Color YELLOW Urine Clarity CLEAR (CLEAR) Urine pH 5.5 (5.0-7.5) PH Ur Specific [place] >=1.030 H (1.002-1.030) Urine Protein 30 H (NEGATIVE) mg/dL Urine Glucose (UA) >=1000 H (NEGATIVE) mg/dL Urine Ketones 40 H (NEGATIVE) mg/dL Urine Occult Blood LARGE H (NEGATIVE) Urine Nitrite NEGATIVE (NEGATIVE) Urine Bilirubin NEGATIVE (NEGATIVE) Urine Urobilinogen 0.2 (NORMAL) (NORMAL) E.U./dL Ur Leukocyte Esterase NEGATIVE (NEGATIVE) Urine RBC 6-10 H (0-5) /HPF Urine WBC 11-25 H (0-5) /HPF Ur Squamous Epith Cells RARE Squamous (<= Few) Urine Bacteria Rare (None Seen) /HPF Urine Casts 11-25 Hyaline Casts /LPF Ur Microscopic Review INDICATED Urine Culture Comments NOT INDICATED Nasal Screen MRSA (PCR) (NEGATIVE) 08/01/22 Range/Units 13:21 WBC (4.8-10.8) x10^3/uL RBC (4.20-5.40) 10^6/uL Hgb (12.0-16.0) g/dL Hct (37.0-47.0) % MCV (81.0-99.0) fL MCH (27.0-31.0) pg MCHC (32.0-36.0) g/dL RDW (12.0-15.0) % Plt Count (130-450) 10^3/uL MPV (7.9-10.8) fL Neut # (Auto) (1.5-6.6) 10^3/uL Lymph # (Auto) (1.5-3.5) 10^3/uL Mathews # (Auto) (0.0-1.0) 10^3/uL Eos # (Auto) (0.0-0.7) 10^3/uL Baso # (Auto) (0.0-0.1) 10^3/uL Absolute Nucleated RBC x10^3/uL Nucleated RBC % /100WBC VBG pH (7.31-7.41) VBG pCO2 (41-51) mmHg VBG pO2 (25-47) mmHg VBG HCO3 (23-28) mmol/L VBG Total CO2 (24-29) mmol/L VBG O2 Saturation (60-80) % VBG Base Excess (-2 - +2) mmol/L Ionized Calcium (1.15-1.33) mmol/L Sodium (135-145) mmol/L Potassium (3.5-5.0) mmol/L Chloride (101-111) mmol/L Carbon Dioxide (21-32) mmol/L Anion Gap (6-13) BUN (6-20) mg/dL Creatinine (0.4-1.0) mg/dL Estimated GFR (MDRD) (>89) Glucose (70-100) mg/dL POC Whole Bld Glucose (70 - 100) mg/dL Calcium (8.5-10.3) mg/dL Phosphorus (2.5-4.6) mg/dL Magnesium (1.7-2.8) mg/dL Troponin I High Sens 22.7 H* (2.3-14.8) ng/L Urine Color Urine Clarity (CLEAR) Urine pH (5.0-7.5) PH Ur Specific [place] (1.002-1.030) Urine Protein (NEGATIVE) mg/dL Urine Glucose (UA) (NEGATIVE) mg/dL Urine Ketones (NEGATIVE) mg/dL Urine Occult Blood (NEGATIVE) Urine Nitrite (NEGATIVE) Urine Bilirubin (NEGATIVE) Urine Urobilinogen (NORMAL) E.U./dL Ur Leukocyte Esterase (NEGATIVE) Urine RBC (0-5) /HPF Urine WBC (0-5) /HPF Ur Squamous Epith Cells (<= Few) Urine Bacteria (None Seen) /HPF Urine Casts /LPF Ur Microscopic Review Urine Culture Comments Nasal Screen MRSA (PCR) (NEGATIVE) Sepsis Event Note (H) - Evaluation Current Stage of Sepsis: Ruled out Assessment/Plan - Problem List (1) DKA (diabetic ketoacidosis) Impression: This woman does not have any history of type 2 diabetes mellitus. She is followed assiduously for her cancer treatment and her labs do not indicate diabetes. She was started on steroids 2 days ago and I would think that steroids, for 2 days, would not cause DKA. Nevertheless, she has was acidotic, dehydrated, and needs further work-up to make sure that it is not to steroids. Troponins were negative. There is no evidence of infection in lung or urine. There were no external drugs other than the steroids that could have done this. She has received 3 L of fluid, has been on insulin drip. Overnight she was taken off insulin for 3 hours and at 2 AM had to go back on 4 units/h. By the time I came in this morning at 7 AM, her glucose is 110. By 10 AM she was 240. She is on 2 units an hour. Anion gap is low at 3.0. Carbon dioxide is still low at 18. Potassium 3.6. Creatinine 0.8. Magnesium 2.2. Phosphorus 1.1. Plan: Stop insulin drip Give 5 units of lispro insulin for the 240. Start clear liquid diet, start sliding scale before each meal. Phosphorus supplemented. We are hoping that this abrupt episode of DKA was strictly due to steroid use. 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 As such we are hoping that her sugars will go down on its own without needing much more than insulin management over the next 1 to 2 days. If she continues to need insulin, unfortunately she is going to have to learn how to do glucometer sticks, and sliding scale insulin at home. 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 She is probably hyperosmolar. I would expect her to be hypokalemic in the face of nausea and vomiting. She is not on spironolactone. She is not on an ISA inhibitor. She was started on insulin drip safely. Potassium was elevated enough. Since being on the insulin drip, potassium has come down as expected. As of this morning she is 3.6. (3) Depression with anxiety Conclusion/Plan: Longstanding duration. Patient has been taking alprazolam 0.25 daily for a few years now. I will resume that medication. 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 Scattered throughout forearms, back, face which are the most prevalent, but has small 3 mm ones on her legs, Just pink dots. 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 She has been followed by dermatology Elma Goodwin with [facility]. Biopsy was done. 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 Hence the steroids that were started day before admisison. At this time I am deferring on resuming her steroids. Once we get her glucose under control we may be able to resume steroids. She is leaning to NOT resuming steroids and would rather use topical treatment to avoid the hyperglycemia. Plan: 0.1% triamcinolone cream apply daily to the face, 0.05% clobetasol cream apply to her body. Right now she was doing 2 weeks on, 1 week off. I am recommending 5 days on, 2 days off. (5) YOLETTE (acute kidney injury) Conclusion/Plan: From severe dehydration. Baseline creatinine is usually 0.9. On physical examination she has profoundly dry cracked lips, dry oral mucosa. Eyes are shrunken and sunken to her head. So are her temples. Plan: Aggressive hydration is already planned through the insulin drip protocol. That will be continued until her BUN and creatinine is normal. (6) Breast cancer metastasized to lung Conclusion/Plan: Very unusual case. This patient presented close to 2 decades after her initial diagnosis. She says that it is not a new primary. It is recurrent breast cancer. Keytruda is used in triple negative cancer that cannot be surgically removed and has failed other chemotherapy. Plan: She will be followed by her oncologist. She presents with vague systemic complaints of nausea, decreased appetite, fatigue, and can all be associated with Keytruda. Abdominal pain with diarrhea can be part of Keytruda side effects. But this seems to be in association with hyperglycemia. And the Keytruda was stopped 7 weeks ago. Plan: Place in ICU for insulin drip. 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 She is probably hyperosmolar. I would expect her to be hypokalemic in the face of nausea and vomiting. She is not on spironolactone. She is not on an ISA inhibitor. At this time she can be started on insulin drip safely. Potassium is elevated enough. Potassium will most likely be driven into her cells once insulin drip is started. Her first 3 L of fluid will be without potassium. Start potassium after the first 3 L and monitor closely to replace (3) Depression with anxiety Conclusion/Plan: Longstanding duration. Patient has been taking alprazolam 0.25 daily for a few years now. I will resume that medication. 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 Scattered throughout forearms. 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 She has been followed by dermatology Elma Goodwin with [facility]. Biopsy was done. 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 Hence the steroids that were started yesterday. At this time I am deferring on resuming her steroids. Once we get her glucose under control we may be able to resume steroids. However the patient is going to have to learn how to give himself insulin to control her diabetes that is new. We are hoping that this is a steroid-induced hyperglycemia, and when she is off the steroids her hyperglycemia will resolve (5) YOLETTE (acute kidney injury) Conclusion/Plan: From severe dehydration. Baseline creatinine is usually 0.9. On admit physical examination she had profoundly dry cracked lips, dry oral mucosa. Eyes were shrunken and sunken to her head. So are her temples. Creatinine started at 1.9 on admission. It has steadily come down. She is now to baseline 0.8 this morning. She has bonded very nicely to hydration. And on physical examination she has much less dryness of lips and oral mucosa. Plan: Continue hydration for another day. I will be starting clear liquid diet this morning. If she is tolerating p.o., unable to keep food down, progressing to regular diet and encouraging water intake will allow me to stop her IV fluids. (6) Breast cancer metastasized to lung Conclusion/Plan: Very unusual case. This patient presented close to 2 decades after her initial diagnosis. She says that it is not a new primary. It is recurrent breast cancer. Keytruda is used in triple negative cancer that cannot be surgically removed and has failed other chemotherapy. Plan: She will be followed by her oncologist. She presents with vague systemic complaints of nausea, decreased appetite, fatigue, and can all be associated with Keytruda. Abdominal pain with diarrhea can be part of Keytruda side effects. But this seems to be in association with hyperglycemia. And the Keytruda was stopped 7 weeks ago.
[2022-08-02] MEDS ORDERED: MAGNESIUM OXIDE 400 MG TABLET PO SCH (13:00)
[2022-08-02 15:01] LABS: CALCIUM, IONIZED 1.16 mmol/L (1.15-1.33); VBG PH 7.279 (7.31-7.41)
[2022-08-02 15:10] LABS: MAGNESIUM 2.3 mg/dL (1.7-2.8); PHOSPHORUS 2.4 mg/dL (2.5-4.6); POTASSIUM 3.9 mmol/L (3.5-5.0)
[2022-08-02] MEDS ORDERED: POTASSIUM CHLORIDE 20 MEQ/15 ML UDC PO ONE (15:37)
[2022-08-02] MEDS: FLUTICASONE NASAL SPRAY NAS SCH (16:25)
[2022-08-02] MEDS: NEUTRA-PHOS 250 MG TABLET PO SCH ×2 (16:26→18:37)
[2022-08-02] MEDS: CETIRIZINE 10 MG TABLET PO SCH (20:56)
[2022-08-02] MEDS: FAMOTIDINE 20 MG TABLET PO SCH (20:56)
[2022-08-02] MEDS ORDERED: INSULIN GLARGINE-YFGN 300 UNIT/3 ML PEN SUBQ SCH (21:00)
[2022-08-02 22:30] LABS: PHOSPHORUS 1.6 mg/dL (2.5-4.6); POTASSIUM 3.6 mmol/L (3.5-5.0)
[2022-08-03] MEDS: NEUTRA-PHOS 250 MG TABLET PO SCH ×4 (00:06→08:48)
[2022-08-03] MEDS: DEXTROSE 5%-0.9% NACL 1,000 ML IV SCH (02:51)
[2022-08-03] MEDS: SODIUM CHLORIDE FLUSH 0.9% 10 ML SYRINGE IVP PRN (04:56)
[2022-08-03 05:31] LABS: CALCIUM, IONIZED 1.16 mmol/L (1.15-1.33); VBG PH 7.383 (7.31-7.41)
[2022-08-03 05:32] LABS: BASOPHILS % (AUTO) 0.2 %; EOSINOPHILS % (AUTO) 0.2 %; HCT - HEMATOCRIT 28.7 % (37.0-47.0); HGB - HEMOGLOBIN 9.6 g/dL (12.0-16.0); LYMPHOCYTES % (AUTO) 15.7 %; MEAN CORPUSCULAR HEMOGLOBIN 32.3 pg (27.0-31.0); MEAN CORPUSCULAR HGB CONC 33.4 g/dL (32.0-36.0); MEAN CORPUSCULAR VOLUME 96.6 fL (81.0-99.0); MEAN PLATELET VOLUME 9.9 fL (7.9-10.8); MONOCYTES # (AUTO) 0.1 10^3/uL (0.0-1.0); NEUTROPHILS # (AUTO) 4.9 10^3/uL (1.5-6.6); NEUTROPHILS % (AUTO) 81.2 %; PLT - PLATELET COUNT 99 10^3/uL (130-450); RED BLOOD COUNT 2.97 10^6/uL (4.20-5.40); RED CELL DISTRIBUTION WIDTH 15.1 % (12.0-15.0); WHITE BLOOD COUNT 6.1 x10^3/uL (4.8-10.8)
[2022-08-03 05:44] LABS: MAGNESIUM 2.2 mg/dL (1.7-2.8); PHOSPHORUS 2.2 mg/dL (2.5-4.6)
[2022-08-03 05:50] LABS: CALCIUM 7.9 mg/dL (8.5-10.3); CREATININE 0.6 mg/dL (0.4-1.0); POTASSIUM 3.3 mmol/L (3.5-5.0)
[2022-08-03] MEDS ORDERED: INSULIN LISPRO 300 UNIT/3 ML PEN SUBQ SCH (08:00)
[2022-08-03] MEDS: INSULIN LISPRO 300 UNIT/3 ML PEN SUBQ SCH ×4 (08:06→20:55)
--- NOTE | 2022-08-03 08:17 | ANESTHESIA PROCEDURE NOTE ---
Anesthesia Intubation Template - Intubation Blade: positive: Glidescope Tube: Size-enter number (7.5), Cuffed Route: Oral Placement Confirmation: End tidal CO2, Direct visualization, Bilateral breath sounds Complications: No complications (Propofol 40mg IV, Rocuronium 40mg IV, View=1 with Glidescope, easy placement, secured per RT.)
[2022-08-03] MEDS: FAMOTIDINE 20 MG TABLET PO SCH ×2 (08:48→20:50)
[2022-08-03] MEDS: CETIRIZINE 10 MG TABLET PO SCH ×2 (08:49→20:50)
[2022-08-03] MEDS: ENOXAPARIN 40 MG/0.4 ML SYRINGE SUBQ SCH (08:57)
[2022-08-03] MEDS: FLUTICASONE NASAL SPRAY NAS SCH (08:59)
[2022-08-03] MEDS ORDERED: POTASSIUM CHLORIDE 20 MEQ/15 ML UDC PO SCH (09:00)
[2022-08-03] MEDS ORDERED: NEUTRA-PHOS 250 MG TABLET PO SCH (09:00)
[2022-08-03] MEDS: TRIAMCINOLONE 0.1% CREAM 15 GM TUBE TOP SCH ×2 (10:31→20:53)
[2022-08-03] MEDS ORDERED: POTASSIUM CHLORIDE 20 MEQ TABLET PO ONE (11:00)
[2022-08-03] MEDS: CLOBETASOL 0.05% OINT 15 GM TUBE TOP SCH (11:44)
--- NOTE | 2022-08-03 12:44 | PROVIDER PROGRESS NOTE ---
Subjective - Prog Note Date Prog Note Date: 08/03/22 Prog Note Time: 12:37 - Subjective Pt reports feeling: Improved Subjective: Off insulin drip as of the rodbuster hours of August 02. We are working with Lantus, insulin with meals, sliding scale with meals to get her glucose under control. The creams for her rashes have been resumed. Unfortunate that she is get any diabetic education before she leaves. She needs to be able to learn how to use her insulin Current Medications - Current Medications Current Medications: Active Medications Acetaminophen (Acetaminophen 325 Mg Tablet) 650 mg PO Q4HR PRN PRN Reason: Pain 1 to 4, or Fever Cetirizine HCl (Cetirizine 10 Mg Tablet) 10 mg PO BID [facility] Last Admin: 08/03/22 08:49 Dose: 10 mg Clobetasol Propionate (Clobetasol 0.05% Oint 15 Gm Tube) 1 applic TOP DAILY [facility] Last Admin: 08/03/22 11:44 Dose: Not Given Enoxaparin Sodium (Enoxaparin 40 Mg/0.4 Ml Syringe) 40 mg SUBQ DAILY [facility] Last Admin: 08/03/22 08:57 Dose: Not Given Famotidine (Famotidine 20 Mg Tablet) 20 mg PO BID [facility] Last Admin: 08/03/22 08:48 Dose: 20 mg Fluticasone Propionate (Fluticasone Nasal [place]) 2 sprays DOMITILA DAILY [facility] Last Admin: 08/03/22 08:59 Dose: 2 sprays Ibuprofen (Ibuprofen 400 Mg Tablet) 400 mg PO QID PRN PRN Reason: PAIN 5-7 Insulin Glargine-yfgn (Insulin Glargine-Yfgn 300 Unit/3 Ml Pen) 25 unit SUBQ QPM [facility] Insulin Human Lispro (Insulin Lispro 300 Unit/3 Ml Pen) 3 - 11 unit SUBQ 0800,1200,1700,2100 [facility]; Protocol Last Admin: 08/03/22 12:02 Dose: Not Given Magnesium Oxide (Magnesium Oxide 400 Mg Tablet) 400 mg PO QPM [facility] Ondansetron HCl (Ondansetron Odt 4 Mg Tablet) 4 mg TL Q6HR PRN PRN Reason: Nausea / Vomiting Oxycodone HCl (Oxycodone 5 Mg Tablet) 5 mg PO Q4HR PRN PRN Reason: Pain 5 to 7 Sodium Chloride (Sodium Chloride Flush 0.9% 10 Ml Syringe) 10 ml IVP 0100,0900,1700 [facility] Last Admin: 08/02/22 22:06 Dose: 10 ml Sodium Chloride (Sodium Chloride Flush 0.9% 10 Ml Syringe) 10 ml IVP PRN PRN PRN Reason: NEEDED PER PROVIDER ORDERS Last Admin: 08/03/22 04:56 Dose: 30 ml Triamcinolone Acetonide (Triamcinolone 0.1% Cream 15 Gm Tube) 1 applic TOP BID [facility] Last Admin: 08/03/22 10:31 Dose: 1 applic Alprazolam 0.25 mg PO QPM PRN 05/17/13 Ca Carbonate/Vitamin D3/Vit K [Viactiv Soft Chew Tablet] 2 each PO BID 05/17/13 Cetirizine [ZyrTEC] 10 mg PO BID 05/17/13 Ibuprofen 400 mg PO QID PRN 05/17/13 Vitamin B Complex [B Complex] 1 each PO DAILY 05/17/13 Glucosam/Chondr-Msm6/Manganese [Glucosamine-Chondroitin Sftgl] 1 each PO DAILY 06/19/15 Magnesium 500 mg PO DAILY 06/19/15 Ondansetron Odt [Zofran Odt] 4 - 8 mg TL Q8H PRN 08/01/22 Prochlorperazine Maleate [Compazine] 10 mg PO Q6H PRN 08/01/22 predniSONE [Deltasone] 40 mg PO DAILY 08/01/22 Objective - Vital Signs/Intake & Output Reviewed Vital Signs: Yes Vital Signs: Vital Signs x48h Temp Pulse Resp BP Pulse Ox 08/03/22 12:00 37.1 C 89 19 131/71 H 98 08/03/22 11:00 85 15 127/64 100 08/03/22 10:00 87 16 120/63 100 08/03/22 09:00 81 20 133/68 H 100 08/03/22 08:00 37.2 C 76 12 132/66 H 98 08/03/22 07:40 37.2 C 08/03/22 07:00 73 15 137/60 H 94 08/03/22 06:00 19 C L 79 19 122/55 L 97 08/03/22 05:00 36.8 C 78 16 134/67 H 96 Intake & Output: Intake & Output 07/31/22 08/01/22 08/02/22 08/03/22 23:59 23:59 23:59 23:59 Intake Total 3339.600 4518.868 1803.333 Output Total 0 3 0 Balance 3339.600 4515.868 1803.333 - Objective General Appearance: positive: No acute distress, Alert, Other (glasses on, readi ng) Eyes Bilateral: positive: PERRL, EOMI ENT: positive: Dry mucous membranes (that are steadily improving since admit, still needed lip balm) Neck: positive: No JVD. negative: Stiff neck Respiratory: positive: No respiratory distress. negative: Wheezes, Rales, Rhonchi Cardiovascular: positive: Regular rate & rhythm, Systolic murmur Abdomen: positive: Non-tender, No organomegaly, Nml bowel sounds, No distention Skin: positive: Warm, Dry, Skin rash (the scaling rash on multiple flat, nonblanching, circles over face, back, arms is still present. the spots on her legs and abd are what she calls early changes that get larger, scale. Face is uncomfortable and hurts but not severe) Extremities: positive: Full ROM, No pedal edema Neurologic/Psychiatric: positive: Oriented x3, CN's nml (2-12), Motor nml (tired and weak but able to get out of bed to chair for food) - Lab Results Fish Bones: 08/03/22 05:20 08/03/22 05:20 Other Labs: Lab Results x24hrs 08/03/22 08/03/22 08/03/22 Range/Units 11:44 07:38 05:20 WBC (4.8-10.8) x10^3/uL RBC (4.20-5.40) 10^6/uL Hgb (12.0-16.0) g/dL Hct (37.0-47.0) % MCV (81.0-99.0) fL MCH (27.0-31.0) pg MCHC (32.0-36.0) g/dL RDW (12.0-15.0) % Plt Count (130-450) 10^3/uL MPV (7.9-10.8) fL Neut # (Auto) (1.5-6.6) 10^3/uL Lymph # (Auto) (1.5-3.5) 10^3/uL [place] # (Auto) (0.0-1.0) 10^3/uL Eos # (Auto) (0.0-0.7) 10^3/uL Baso # (Auto) (0.0-0.1) 10^3/uL Absolute Nucleated RBC x10^3/uL Nucleated RBC % /100WBC VBG pH 7.383 (7.31-7.41) Ionized Calcium 1.16 (1.15-1.33) mmol/L Sodium (135-145) mmol/L Potassium (3.5-5.0) mmol/L Chloride (101-111) mmol/L Carbon Dioxide (21-32) mmol/L Anion Gap (6-13) BUN (6-20) mg/dL Creatinine (0.4-1.0) mg/dL Estimated GFR (MDRD) (>89) Glucose (70-100) mg/dL POC Whole Bld Glucose 130 H 316 H (70 - 100) mg/dL Calcium (8.5-10.3) mg/dL Phosphorus (2.5-4.6) mg/dL Magnesium (1.7-2.8) mg/dL 08/03/22 08/03/22 08/03/22 Range/Units 05:20 05:20 05:20 WBC 6.1 (4.8-10.8) x10^3/uL RBC 2.97 L (4.20-5.40) 10^6/uL Hgb 9.6 L (12.0-16.0) g/dL Hct 28.7 L (37.0-47.0) % MCV 96.6 (81.0-99.0) fL MCH 32.3 H (27.0-31.0) pg MCHC 33.4 (32.0-36.0) g/dL RDW 15.1 H (12.0-15.0) % Plt Count 99 L (130-450) 10^3/uL MPV 9.9 (7.9-10.8) fL Neut # (Auto) 4.9 (1.5-6.6) 10^3/uL Lymph # (Auto) 1.0 L (1.5-3.5) 10^3/uL [place] # (Auto) 0.1 (0.0-1.0) 10^3/uL Eos # (Auto) 0.0 (0.0-0.7) 10^3/uL Baso # (Auto) 0.0 (0.0-0.1) 10^3/uL Absolute Nucleated RBC 0.00 x10^3/uL Nucleated RBC % 0.0 /100WBC VBG pH (7.31-7.41) Ionized Calcium (1.15-1.33) mmol/L Sodium 138 (135-145) mmol/L Potassium 3.3 L (3.5-5.0) mmol/L Chloride 114 H (101-111) mmol/L Carbon Dioxide 21 (21-32) mmol/L Anion Gap 3.0 L (6-13) BUN 15 (6-20) mg/dL Creatinine 0.6 (0.4-1.0) mg/dL Estimated GFR (MDRD) 99 (>89) Glucose 322 H (70-100) mg/dL POC Whole Bld Glucose (70 - 100) mg/dL Calcium 7.9 L (8.5-10.3) mg/dL Phosphorus 2.2 L (2.5-4.6) mg/dL Magnesium 2.2 (1.7-2.8) mg/dL 08/02/22 08/02/22 08/02/22 Range/Units 22:02 20:55 16:24 WBC (4.8-10.8) x10^3/uL RBC (4.20-5.40) 10^6/uL Hgb (12.0-16.0) g/dL Hct (37.0-47.0) % MCV (81.0-99.0) fL MCH (27.0-31.0) pg MCHC (32.0-36.0) g/dL RDW (12.0-15.0) % Plt Count (130-450) 10^3/uL MPV (7.9-10.8) fL Neut # (Auto) (1.5-6.6) 10^3/uL Lymph # (Auto) (1.5-3.5) 10^3/uL [place] # (Auto) (0.0-1.0) 10^3/uL Eos # (Auto) (0.0-0.7) 10^3/uL Baso # (Auto) (0.0-0.1) 10^3/uL Absolute Nucleated RBC x10^3/uL Nucleated RBC % /100WBC VBG pH (7.31-7.41) Ionized Calcium (1.15-1.33) mmol/L Sodium (135-145) mmol/L Potassium 3.6 (3.5-5.0) mmol/L Chloride (101-111) mmol/L Carbon Dioxide (21-32) mmol/L Anion Gap (6-13) BUN (6-20) mg/dL Creatinine (0.4-1.0) mg/dL Estimated GFR (MDRD) (>89) Glucose (70-100) mg/dL POC Whole Bld Glucose 348 H 377 H (70 - 100) mg/dL Calcium (8.5-10.3) mg/dL Phosphorus 1.6 L (2.5-4.6) mg/dL Magnesium (1.7-2.8) mg/dL 08/02/22 08/02/22 08/02/22 Range/Units 14:55 14:55 12:03 WBC (4.8-10.8) x10^3/uL RBC (4.20-5.40) 10^6/uL Hgb (12.0-16.0) g/dL Hct (37.0-47.0) % MCV (81.0-99.0) fL MCH (27.0-31.0) pg MCHC (32.0-36.0) g/dL RDW (12.0-15.0) % Plt Count (130-450) 10^3/uL MPV (7.9-10.8) fL Neut # (Auto) (1.5-6.6) 10^3/uL Lymph # (Auto) (1.5-3.5) 10^3/uL [place] # (Auto) (0.0-1.0) 10^3/uL Eos # (Auto) (0.0-0.7) 10^3/uL Baso # (Auto) (0.0-0.1) 10^3/uL Absolute Nucleated RBC x10^3/uL Nucleated RBC % /100WBC VBG pH 7.279 L (7.31-7.41) Ionized Calcium 1.16 (1.15-1.33) mmol/L Sodium (135-145) mmol/L Potassium 3.9 (3.5-5.0) mmol/L Chloride (101-111) mmol/L Carbon Dioxide (21-32) mmol/L Anion Gap (6-13) BUN (6-20) mg/dL Creatinine (0.4-1.0) mg/dL Estimated GFR (MDRD) (>89) Glucose (70-100) mg/dL POC Whole Bld Glucose 168 H (70 - 100) mg/dL Calcium (8.5-10.3) mg/dL Phosphorus 2.4 L (2.5-4.6) mg/dL Magnesium 2.3 (1.7-2.8) mg/dL 08/02/22 08/02/22 08/02/22 Range/Units 10:03 08:06 00:03 WBC (4.8-10.8) x10^3/uL RBC (4.20-5.40) 10^6/uL Hgb (12.0-16.0) g/dL Hct (37.0-47.0) % MCV (81.0-99.0) fL MCH (27.0-31.0) pg MCHC (32.0-36.0) g/dL RDW (12.0-15.0) % Plt Count (130-450) 10^3/uL MPV (7.9-10.8) fL Neut # (Auto) (1.5-6.6) 10^3/uL Lymph # (Auto) (1.5-3.5) 10^3/uL [place] # (Auto) (0.0-1.0) 10^3/uL Eos # (Auto) (0.0-0.7) 10^3/uL Baso # (Auto) (0.0-0.1) 10^3/uL Absolute Nucleated RBC x10^3/uL Nucleated RBC % /100WBC VBG pH (7.31-7.41) Ionized Calcium (1.15-1.33) mmol/L Sodium (135-145) mmol/L Potassium (3.5-5.0) mmol/L Chloride (101-111) mmol/L Carbon Dioxide (21-32) mmol/L Anion Gap (6-13) BUN (6-20) mg/dL Creatinine (0.4-1.0) mg/dL Estimated GFR (MDRD) (>89) Glucose (70-100) mg/dL POC Whole Bld Glucose 93 110 H 165 H (70 - 100) mg/dL Calcium (8.5-10.3) mg/dL Phosphorus (2.5-4.6) mg/dL Magnesium (1.7-2.8) mg/dL 08/01/22 Range/Units 23:00 WBC (4.8-10.8) x10^3/uL RBC (4.20-5.40) 10^6/uL Hgb (12.0-16.0) g/dL Hct (37.0-47.0) % MCV (81.0-99.0) fL MCH (27.0-31.0) pg MCHC (32.0-36.0) g/dL RDW (12.0-15.0) % Plt Count (130-450) 10^3/uL MPV (7.9-10.8) fL Neut # (Auto) (1.5-6.6) 10^3/uL Lymph # (Auto) (1.5-3.5) 10^3/uL [place] # (Auto) (0.0-1.0) 10^3/uL Eos # (Auto) (0.0-0.7) 10^3/uL Baso # (Auto) (0.0-0.1) 10^3/uL Absolute Nucleated RBC x10^3/uL Nucleated RBC % /100WBC VBG pH (7.31-7.41) Ionized Calcium (1.15-1.33) mmol/L Sodium (135-145) mmol/L Potassium (3.5-5.0) mmol/L Chloride (101-111) mmol/L Carbon Dioxide (21-32) mmol/L Anion Gap (6-13) BUN (6-20) mg/dL Creatinine (0.4-1.0) mg/dL Estimated GFR (MDRD) (>89) Glucose (70-100) mg/dL POC Whole Bld Glucose 122 H (70 - 100) mg/dL Calcium (8.5-10.3) mg/dL Phosphorus (2.5-4.6) mg/dL Magnesium (1.7-2.8) mg/dL ABX Reporting Has patient been on IV antibiotics over the past 48 hours?: No Sepsis Event Note (H) - Evaluation Current Stage of Sepsis: Ruled out Assessment/Plan - Problem List (1) Type 2 diabetes mellitus, uncontrolled Impression: This woman does not have any history of type 2 diabetes mellitus. She is followed assiduously for her cancer treatment and her labs do not indicate diabetes. 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 Nevertheless, she has was in DKA on admission with acidosis, dehydration, and needed further work-up to make sure that her DKA was only due to steroids. Troponins were negative. There is no evidence of infection in lung or urine. There were no external drugs other than the steroids that could have done this. She has a diffuse rash due to Sweets syndrom but no cellulitis. She was admitted to the ICU and placed on an insulin drip and received 3 liters of fluids for hydration. Overnight she was taken off insulin for 3 hours and at 2 AM had to go back on 4 units/h. By the time I came in this morning of 08/02 at 7 AM, her glucose is 110. By 10 AM she was 240. She was on 2 units an hour. Anion gap is low at 3.0. Carbon dioxide was still low at 18. Potassium 3.6. Creatinine 0.8. Magnesium 2.2. Phosphorus 1.1. I felt that her DKA had resolved. I have stopped insulin drip since the morning of 08/02. A clear liquid diet was tolerated that morning so I advanced diet to low carb by lunch. Lantus 15 units at night started as well as 5 units of lispro with each meal plus sliding scale lispro with each meal. She is eating 50 to 75% of her food. This morning she ate 90% of her food. This morning she was 316, she received 14 units of short acting insulin with breakfast. And she already received her Lantus last night. At lunch her sugar is 130 so she will only get sliding scale, and no short acting lispro. I have stopped the 5 units with meals. I will increase her Lantus to 25 units tonight. Continue sliding scale before meals. She has left over fluids from the DKA protocol. Namely D5. That was discontinued. I have asked for diabetic education to begin. I had hoped that once she got her sugar under control, that she would need minimal support. Unfortunately with Lantus, sliding scale, requirements her body is indicating that she is going need to be on diabetic management for quite some time. She can be MedSurg status now. And I will write that order. I am also asking nursing to encourage her to get up out of bed and walk in the room. 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 She was probably hyperosmolar. I expected her to be hypokalemic in the face of nausea and vomiting. She is not on spironolactone. She is not on an ISA inhibitor. She was started on insulin drip safely. Potassium was elevated enough. Since being on the insulin drip, potassium has come down as expected. Yesterday morning she was 3.6. For the rest of the day her potassium was normal. This morning her potassium was 3.3. I will give Potassium rider of 20 mEq this morning. Phosphorus is also low and I will give Neutra-Phos 250 mg every 2 hours for 2 doses. (3) Depression with anxiety Conclusion/Plan: Longstanding duration. Patient has been taking alprazolam 0.25 daily for a few years now. I resumed that. 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 Scattered throughout forearms, back, face which are the most prevalent, but has small 3 mm ones on her legs, Just pink dots. 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 She has been followed by dermatology Elma Goodwin with [facility]. Biopsy was done. 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 Hence the steroids that were started day before admission. At this time I am deferring on resuming her steroids. Once we get her glucose under control we may be able to resume steroids. She is leaning to NOT resuming steroids and would rather use topical treatment to avoid the hyperglycemia. Plan: 0.1% triamcinolone cream apply daily to the face, 0.05% clobetasol cream apply to her body. Right now she was doing 2 weeks on, 1 week off. I am recomm ending 5 days on, 2 days off. (5) YOLETTE (acute kidney injury) Conclusion/Plan: From severe dehydration. Baseline creatinine is usually 0.9. On physical examination she has profoundly dry cracked lips, dry oral mucosa. Eyes are shrunken and sunken to her head. So are her temples. Plan: Aggressive hydration is already planned through the insulin drip protocol. That will be continued until her BUN and creatinine is normal. (6) Breast cancer metastasized to lung Conclusion/Plan: Very unusual case. This patient presented close to 2 decades after her initial diagnosis. She says that it is not a new primary. It is recurrent breast cancer. Keytruda is used in triple negative cancer that cannot be surgically removed and has failed other chemotherapy. Plan: She will be followed by her oncologist. She presents with vague systemic complaints of nausea, decreased appetite, fatigue, and can all be associated wit h Keytruda. Abdominal pain with diarrhea can be part of Keytruda side effects. But this seems to be in association with hyperglycemia. And the Keytruda was stopped 7 weeks ago. Plan: Her cancer is being managed by her oncologist. Oncologist does know she is here. 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
[2022-08-03 13:26] LABS: ESTIMATED AVERAGE GLUCOSE 180 mg/dL (70-100); HEMOGLOBIN A1c% 7.9 % (4.27-6.07)
[2022-08-03] MEDS ORDERED: CARBOXYMETHYLCELLULOSE OPHTH DROPS EACHEYE PRN (13:37)
[2022-08-03] MEDS: SODIUM CHLORIDE FLUSH 0.9% 10 ML SYRINGE IVP SCH (16:50)
[2022-08-03] MEDS: MAGNESIUM OXIDE 400 MG TABLET PO SCH (20:51)
[2022-08-03] MEDS: INSULIN GLARGINE-YFGN 300 UNIT/3 ML PEN SUBQ SCH (20:53)
[2022-08-04] MEDS: SODIUM CHLORIDE FLUSH 0.9% 10 ML SYRINGE IVP SCH ×4 (06:38→21:48)
[2022-08-04 06:59] LABS: BASOPHILS % (AUTO) 0.4 %; EOSINOPHILS % (AUTO) 1.7 %; HCT - HEMATOCRIT 28.4 % (37.0-47.0); HGB - HEMOGLOBIN 9.5 g/dL (12.0-16.0); LYMPHOCYTES # (AUTO) 0.6 10^3/uL (1.5-3.5); LYMPHOCYTES % (AUTO) 24.9 %; MEAN CORPUSCULAR HEMOGLOBIN 32.1 pg (27.0-31.0); MEAN CORPUSCULAR HGB CONC 33.5 g/dL (32.0-36.0); MEAN CORPUSCULAR VOLUME 95.9 fL (81.0-99.0); MEAN PLATELET VOLUME 10.1 fL (7.9-10.8); MONOCYTES # (AUTO) 0.1 10^3/uL (0.0-1.0); MONOCYTES % (AUTO) 3.9 %; NEUTROPHILS # (AUTO) 1.6 10^3/uL (1.5-6.6); NEUTROPHILS % (AUTO) 67.8 %; PLT - PLATELET COUNT 90 10^3/uL (130-450); RED BLOOD COUNT 2.96 10^6/uL (4.20-5.40); RED CELL DISTRIBUTION WIDTH 14.7 % (12.0-15.0); WHITE BLOOD COUNT 2.3 x10^3/uL (4.8-10.8)
[2022-08-04 07:07] LABS: CALCIUM 8.1 mg/dL (8.5-10.3); CREATININE 0.4 mg/dL (0.4-1.0)
[2022-08-04 07:09] LABS: SLIDE REVIEW? Indicated
[2022-08-04 07:43] LABS: PLATELET ESTIMATE, MANUAL DECREASED (<130,000) (NORMAL); PLATELET MORPHOLOGY NORMAL APPEARANCE (NORMAL)
[2022-08-04 07:44] LABS: RBC MORPHOLOGY (MULTIPLE) NORMAL APPEARANCE (NORMAL)
[2022-08-04] MEDS: CETIRIZINE 10 MG TABLET PO SCH ×2 (08:02→21:45)
[2022-08-04] MEDS: INSULIN LISPRO 300 UNIT/3 ML PEN SUBQ SCH ×5 (08:02→21:47)
[2022-08-04] MEDS: ENOXAPARIN 40 MG/0.4 ML SYRINGE SUBQ SCH (08:03)
[2022-08-04] MEDS: FAMOTIDINE 20 MG TABLET PO SCH ×2 (08:03→21:45)
[2022-08-04] MEDS: CLOBETASOL 0.05% OINT 15 GM TUBE TOP SCH (08:04)
[2022-08-04] MEDS: TRIAMCINOLONE 0.1% CREAM 15 GM TUBE TOP SCH ×2 (08:05→21:45)
[2022-08-04] MEDS: FLUTICASONE NASAL SPRAY NAS SCH (08:10)
[2022-08-04] MEDS ORDERED: POTASSIUM PHOSPHATE 21 MMOL in SODIUM CHLORIDE 0.9% 250 ML IV ONE (13:00)
--- NOTE | 2022-08-04 16:32 | PROVIDER PROGRESS NOTE ---
Assessment/Plan - Problem List (1) Type 2 diabetes mellitus, uncontrolled Assessment/Plan: This woman does not have any history of type 2 diabetes mellitus. She is followed closely for her cancer treatment and her labs do not indicate diabetes. 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 Nevertheless, she was in DKA on admission with acidosis, dehydration, and needed further work-up to make sure that her DKA was only due to steroids. Troponins were negative. There is no evidence of infection in lung or urine. There were no external drugs other than the steroids that could have done this. 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 She was admitted to the ICU and placed on an insulin drip and received 3 liters of fluids for hydration. Eventually her DKA had resolved. She is out of the ICU. She is now ordered to get Lantus insulin at night and sliding scale insulin with meals (Lantus 15 units at night was started, then incr to 25 units, as well as 5 units of lispro with each meal plus sliding scale Lispro with each meal, which was then stopped) Her diet is low carb We have asked for diabetic education to begin. I had hoped that once she got her sugar under control, that she would need minimal support. Unfortunately, we are still fine-tuning her Insulin doses This morning she was hypoglycemic, glu 59. Hypoglycemia protocol was instituted Plan: Will order diabetic nurse teaching so she can administer her own insulin, in addition to diabetic MAC education We will adjust her nighttime Lantus down because of the morning hypoglycemia Network Firewall Engineer Sho has recommended restarting some insulin with meals, will add 4 units with meal. She is not yet ready for discharge, given the hypoglycemia this morning, and need for further adjustment of all her insulin doses. Qualifiers: Diabetes mellitus type: drug or chemical induced Diabetes mellitus complication detail: without coma Qualified Code(s): E09.10 - Drug or chemical induced diabetes mellitus with ketoacidosis without coma (2) Hypokalemia Conclusion/Plan: Labs were all reviewed. Her K was 6.0 on admission, most likely attributed to fluid shifts. She was probably hyperosmolar. We expected her to be hypokalemic in the face of nausea and vomiting. She was not on spironolactone. She was not on an ISA inhibitor. She was started on insulin drip safely, since her Potassium was elevated enough. Since being on the insulin drip, potassium has come down as expected. For the last severaldays she has been hypokalemic, likely due to new Insulin use. She has received Potassium rider. Plan: Continue to give K replacement orally and with IV rider We are decreasing the insulin dose overall so this should help with the low potassium levels She is not yet ready for discharge since we have not yet established proper insulin dose and possibly daily potassium replacement (3) Depression with anxiety Conclusion/Plan: Longstanding duration. Patient has been taking alprazolam 0.25 daily for a few years now. 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 Scattered throughout forearms, back, face which are the most prevalent, but has small 3 mm ones on her legs, which are small pink dots. 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 She has been followed by dermatology Elma Goodwin with [facility]. Biopsy was done. 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 Hence, she was on the steroids that were started day before admission. Here we did not resume her steroids, due to presenting with DKA. Plan: Once we get her glucose under control we may be able to resume steroids. She is leaning to NOT resuming steroids and would rather use topical treatment to avoid the hyperglycemia. 0.1% triamcinolone cream apply daily to the face, 0.05% clobetasol cream apply to her body. Right now she was doing 2 weeks on, 1 week off. We have recommend ed 5 days on, 2 days off. (5) YOLETTE (acute kidney injury) Conclusion/Plan: Resolved It was from severe dehydration. Baseline creatinine is usually 0.9. On admiss ion, she had profoundly dry cracked lips, dry oral mucosa. Eyes were shrunken and so were her temples. Plan: Hydration was given by iv until her BUN and creatinine were normal 2 days ago. (6) Breast cancer metastasized to lung Conclusion/Plan: Very unusual case. This patient presented close to 2 decades after her initial diagnosis. She says that it is not a new primary. It is recurrent breast cancer. Keytruda is used in triple negative cancer that cannot be surgically removed and has failed other chemotherapy. She presents with vague systemic complaints of nausea, decreased appetite, fatigue, and can all be associated with Keytruda. Abdominal pain with diarrhea can be part of Keytruda side effects. But this seems to be in association with hyperglycemia. And the Keytruda was stopped 7 weeks ago. Plan: Her cancer is being managed by her oncologist as an outpt. Oncologist does know she is here. - Current Meds Current Meds: Current Medications Generic Name Dose Route Start Last Admin Trade Name Freq PRN Reason Stop Dose Admin Carboxymethylcellulose 1 drops 08/03/22 13:37 08/03/22 13:54 Carboxymethylcellulose Ophth Drops EACHEYE 1 drops PRN PRN Administration Dry Eye Cetirizine HCl 10 mg 08/02/22 21:00 08/04/22 08:02 Cetirizine 10 Mg Tablet PO 10 mg BID PEBBLES Administration Clobetasol Propionate 1 applic 08/02/22 12:03 08/04/22 08:04 Clobetasol 0.05% Oint 15 Gm Tube TOP 1 applic DAILY PEBBLES Administration Enoxaparin Sodium 40 mg 08/02/22 09:00 08/04/22 08:03 Enoxaparin 40 Mg/0.4 Ml Syringe SUBQ 40 mg DAILY PEBBLES Administration Famotidine 20 mg 08/02/22 21:00 08/04/22 08:03 Famotidine 20 Mg Tablet PO 20 mg BID PEBBLES Administration Fluticasone Propionate 2 sprays 08/02/22 13:00 08/04/22 08:10 Fluticasone Nasal Rhodelia DOMITILA 2 sprays DAILY PEBBLES Administration Potassium Phosphate 21 mmol/ 257 mls @ 42.833 mls/hr 08/04/22 13:00 08/04/22 14:06 Sodium Chloride IV 08/04/22 18:59 42.833 mls/hr ONCE ONE Administration Insulin Glargine-yfgn 25 unit 08/03/22 21:00 08/03/22 20:53 Insulin Glargine-Yfgn 300 Unit/3 Ml Pen SUBQ 25 unit QPM PEBBLES Administration Magnesium Oxide 400 mg 08/03/22 21:00 08/03/22 20:51 Magnesium Oxide 400 Mg Tablet PO 400 mg QPM PEBBLES Administration Sodium Chloride 10 ml 08/01/22 17:00 08/04/22 08:10 Sodium Chloride Flush 0.9% 10 Ml Syringe IVP 10 ml 0100,0900,1700 PEBBLES Administration Sodium Chloride 10 ml 08/01/22 13:12 08/03/22 04:56 Sodium Chloride Flush 0.9% 10 Ml Syringe IVP 30 ml PRN PRN Administration NEEDED PER PROVIDER ORDERS Triamcinolone Acetonide 1 applic 08/02/22 13:00 08/04/22 08:05 Triamcinolone 0.1% Cream 15 Gm Tube TOP 1 applic BID PEBBLES Administration - Lab Result Fish Bone Diagrams: 08/05/22 05:39 08/05/22 05:39 - Additional Planning My Orders: My Active Orders 08/04/22 air bag stripper Consult [CONS] Routine 08/04/22 12:38 Diabetic Education [RC] AC 08/04/22 13:00 Potassium Phosphate 21 mmol Sodium Chloride 0.9% [Normal Saline 0.9%] 250 ml IV ONCE 08/04/22 17:00 Insulin Lispro [Humalog Kwikpen U-100] 1 - 5 unit SUBQ 0800,1200,1700,2100 Insulin Lispro [Humalog Kwikpen U-100] 4 unit SUBQ TIDWM Subjective - Subjective Patient Reports: Other (Patient currently being seen by diabetic MAC nurse educator) Objective Vital Signs: Vital Signs - 24 hr 08/03/22 08/03/22 08/04/22 17:00 23:37 07:41 Temperature 36.7 C 36.6 C 37.1 C Heart Rate [ 103 H 90 79 Brachial] Respiratory 20 18 18 Rate Blood Pressure 134/77 H 143/76 H 137/67 H [Right Brachial artery] O2 Saturation 99 98 97 Oxygen O2 Source Room air I&O (Last 24 Hrs): Intake and Output Totals x24h 08/02/22 08/03/22 08/04/22 23:59 23:59 23:59 Intake Total 4518.868 2703.333 830 Output Total 3 0 Balance 4515.868 2703.333 830 General: Alert HEENT: Mucous membr. moist/pink Neck: Supple Neuro: Alert Cardiovascular: Regular rate Respiratory: No respiratory distress - Results Results: Laboratory Results WBC 2.3 x10^3/uL (4.8-10.8) L 08/04/22 06:38 RBC 2.96 10^6/uL (4.20-5.40) L 08/04/22 06:38 Hgb 9.5 g/dL (12.0-16.0) L 08/04/22 06:38 Hct 28.4 % (37.0-47.0) L 08/04/22 06:38 MCV 95.9 fL (81.0-99.0) 08/04/22 06:38 MCH 32.1 pg (27.0-31.0) H 08/04/22 06:38 MCHC 33.5 g/dL (32.0-36.0) 08/04/22 06:38 RDW 14.7 % (12.0-15.0) 08/04/22 06:38 Plt Count 90 10^3/uL (130-450) L 08/04/22 06:38 MPV 10.1 fL (7.9-10.8) 08/04/22 06:38 Neut # (Auto) 1.6 10^3/uL (1.5-6.6) 08/04/22 06:38 Lymph # (Auto) 0.6 10^3/uL (1.5-3.5) L 08/04/22 06:38 [place] # (Auto) 0.1 10^3/uL (0.0-1.0) 08/04/22 06:38 Eos # (Auto) 0.0 10^3/uL (0.0-0.7) 08/04/22 06:38 Baso # (Auto) 0.0 10^3/uL (0.0-0.1) 08/04/22 06:38 Absolute Nucleated RBC 0.00 x10^3/uL 08/04/22 06:38 Total Counted 100 08/01/22 11:35 Band Neuts % (Manual) 10 % (0-10) 08/01/22 11:35 Abnorm Lymph % (Manual) 0 % 08/01/22 11:35 Metamyelocytes % 5 % (-0) H 08/01/22 11:35 Myelocytes % 9 % (-0) H 08/01/22 11:35 Nucleated RBC % 0.0 /100WBC 08/04/22 06:38 Neutrophils # (Manual) 11.8 10^3/uL (1.5-6.6) H 08/01/22 11:35 Lymphocytes # (Manual) 0.4 10^3/uL (1.5-3.5) L 08/01/22 11:35 Monocytes # (Manual) 0.4 10^3/uL (0.0-1.0) 08/01/22 11:35 Eosinophils # (Manual) 0.0 10^3/uL (0-0.7) 08/01/22 11:35 Basophils # (Manual) 0.0 10^3/uL (0-0.1) 08/01/22 11:35 Differential Comment MANUAL DIFFERENTIAL 08/01/22 11:35 Manual Slide Review Indicated 08/04/22 06:38 WBC Morphology PELGER HUET ANOMALY (NORMAL) 1+ TOXIC GRANULATION (NORMAL) 08/01/22 11:35 WBC Morphology PELGER HUET ANOMALY (NORMAL) 1+ TOXIC GRANULATION (NORMAL) 08/01/22 11:35 Platelet Estimate DECREASED (<130,000) (NORMAL) 08/04/22 06:38 Platelet Morphology NORMAL APPEARANCE (NORMAL) 08/04/22 06:38 RBC Morph Micro Appear NORMAL APPEARANCE (NORMAL) 08/04/22 06:38 VBG pH 7.383 (7.31-7.41) 08/03/22 05:20 VBG pCO2 22.0 mmHg (41-51) L 08/01/22 13:53 VBG pO2 59.2 mmHg (25-47) H 08/01/22 13:53 VBG HCO3 5.2 mmol/L (23-28) L 08/01/22 13:53 VBG Total CO2 5.9 mmol/L (24-29) L 08/01/22 13:53 VBG O2 Saturation 87.0 % (60-80) H 08/01/22 13:53 VBG Base Excess -24.8 mmol/L (-2 - +2) L 08/01/22 13:53 Ionized Calcium 1.16 mmol/L (1.15-1.33) 08/03/22 05:20 Sodium 142 mmol/L (135-145) 08/04/22 06:38 Potassium 3.0 mmol/L (3.5-5.0) L 08/04/22 06:38 Chloride 110 mmol/L (101-111) 08/04/22 06:38 Carbon Dioxide 28 mmol/L (21-32) 08/04/22 06:38 Anion Gap 4.0 (6-13) L 08/04/22 06:38 BUN 9 mg/dL (6-20) 08/04/22 06:38 Creatinine 0.4 mg/dL (0.4-1.0) 08/04/22 06:38 Estimated GFR (MDRD) 157 (>89) 08/04/22 06:38 Glucose 195 mg/dL (70-100) H 08/04/22 06:38 POC Whole Bld Glucose 369 mg/dL (70 - 100) H 08/04/22 11:13 Estimat Average Glucose 180 mg/dL (70-100) H 08/03/22 05:20 Hemoglobin A1c % 7.9 % (4.27-6.07) H 08/03/22 05:20 Calcium 8.1 mg/dL (8.5-10.3) L 08/04/22 06:38 Ionized Calcium YES 08/01/22 18:50 Phosphorus 1.9 mg/dL (2.5-4.6) L 08/04/22 06:38 Magnesium 2.2 mg/dL (1.7-2.8) 08/03/22 05:20 Total Bilirubin 1.5 mg/dL (0.2-1.0) H 08/01/22 11:35 AST 22 IU/L (10-42) 08/01/22 11:35 ALT 36 IU/L (10-60) 08/01/22 11:35 Alkaline Phosphatase 147 IU/L (42-121) H 08/01/22 11:35 Troponin I High Sens 22.7 ng/L (2.3-14.8) H* 08/01/22 13:21 Total Protein 8.1 g/dL (6.7-8.2) 08/01/22 11:35 Albumin 4.1 g/dL (3.2-5.5) 08/01/22 11:35 Globulin 4.0 g/dL (2.1-4.2) 08/01/22 11:35 Albumin/Globulin Ratio 1.0 (1.0-2.2) 08/01/22 11:35 Lipase 36 U/L (22-51) 08/01/22 11:35 Urine Color YELLOW 08/01/22 13:21 Urine Clarity CLEAR (CLEAR) 08/01/22 13:21 Urine pH 5.5 PH (5.0-7.5) 08/01/22 13:21 Ur Specific [place] >=1.030 (1.002-1.030) H 08/01/22 13:21 Urine Protein 30 mg/dL (NEGATIVE) H 08/01/22 13:21 Urine Glucose (UA) >=1000 mg/dL (NEGATIVE) H 08/01/22 13:21 Urine Ketones 40 mg/dL (NEGATIVE) H 08/01/22 13:21 Urine Occult Blood LARGE (NEGATIVE) H 08/01/22 13:21 Urine Nitrite NEGATIVE (NEGATIVE) 08/01/22 13:21 Urine Bilirubin NEGATIVE (NEGATIVE) 08/01/22 13:21 Urine Urobilinogen 0.2 (NORMAL) E.U./dL (NORMAL) 08/01/22 13:21 Ur Leukocyte Esterase NEGATIVE (NEGATIVE) 08/01/22 13:21 Urine RBC 6-10 /HPF (0-5) H 08/01/22 13:21 Urine WBC 11-25 /HPF (0-5) H 08/01/22 13:21 Ur Squamous Epith Cells RARE Squamous (<= Few) 08/01/22 13:21 Urine Bacteria Rare /HPF (None Seen) 08/01/22 13:21 Urine Casts 11-25 Hyaline Casts /LPF 08/01/22 13:21 Ur Microscopic Review INDICATED 08/01/22 13:21 Urine Culture Comments NOT INDICATED 08/01/22 13:21 Nasal Adenovirus (PCR) NOT DETECTED 08/01/22 11:50 Nasal B. parapertussis DNA (PCR) NOT DETECTED 08/01/22 11:50 Nasal Coronavir 229E PCR NOT DETECTED 08/01/22 11:50 Nasal Coronavir HKU1 PCR NOT DETECTED 08/01/22 11:50 Nasal Coronavir NL63 PCR NOT DETECTED 08/01/22 11:50 Nasal Coronavir OC43 PCR NOT DETECTED 08/01/22 11:50 Nasal Enterovir/Rhinovir PCR NOT DETECTED 08/01/22 11:50 Nasal Influenza B PCR NOT DETECTED 08/01/22 11:50 Nasal Influenza A PCR NOT DETECTED 08/01/22 11:50 Nasal Parainfluen 1 PCR NOT DETECTED 08/01/22 11:50 Nasal Parainfluen 2 PCR NOT DETECTED 08/01/22 11:50 Nasal Parainfluen 3 PCR NOT DETECTED 08/01/22 11:50 Nasal Parainfluen 4 PCR NOT DETECTED 08/01/22 11:50 Nasal RSV (PCR) NOT DETECTED 08/01/22 11:50 Nasal Screen MRSA (PCR) NEGATIVE (NEGATIVE) 08/01/22 14:22 Nasal B.pertussis DNA PCR NOT DETECTED 08/01/22 11:50 Nasal C.pneumoniae (PCR) NOT DETECTED 08/01/22 11:50 Domitila Human Metapneumo PCR NOT DETECTED 08/01/22 11:50 Nasal M.pneumoniae (PCR) NOT DETECTED 08/01/22 11:50 Nasal SARS-CoV-2 (PCR) NOT DETECTED 08/01/22 11:50 Serum Ketones MODERATE (NEGATIVE) H 08/01/22 12:26 - Procedures Procedures: Procedures COLONOSCOPY (05/24/14) Sepsis Event Note (H) - Evaluation Current Stage of Sepsis: Ruled out
[2022-08-04] MEDS: INSULIN GLARGINE-YFGN 300 UNIT/3 ML PEN SUBQ SCH (21:45)
[2022-08-04] MEDS: MAGNESIUM OXIDE 400 MG TABLET PO SCH (21:45)
[2022-08-05] MEDS: SODIUM CHLORIDE FLUSH 0.9% 10 ML SYRINGE IVP SCH ×3 (04:50→17:14)
[2022-08-05 05:49] LABS: BASOPHILS % (AUTO) 0.6 %; EOSINOPHILS # (AUTO) 0.1 10^3/uL (0.0-0.7); EOSINOPHILS % (AUTO) 3.8 %; HCT - HEMATOCRIT 30.3 % (37.0-47.0); HGB - HEMOGLOBIN 10.2 g/dL (12.0-16.0); LYMPHOCYTES # (AUTO) 0.7 10^3/uL (1.5-3.5); LYMPHOCYTES % (AUTO) 21.5 %; MEAN CORPUSCULAR HEMOGLOBIN 32.1 pg (27.0-31.0); MEAN CORPUSCULAR HGB CONC 33.7 g/dL (32.0-36.0); MEAN CORPUSCULAR VOLUME 95.3 fL (81.0-99.0); MEAN PLATELET VOLUME 10.1 fL (7.9-10.8); MONOCYTES # (AUTO) 0.3 10^3/uL (0.0-1.0); MONOCYTES % (AUTO) 8.5 %; NEUTROPHILS # (AUTO) 2.1 10^3/uL (1.5-6.6); PLT - PLATELET COUNT 104 10^3/uL (130-450); RED BLOOD COUNT 3.18 10^6/uL (4.20-5.40); RED CELL DISTRIBUTION WIDTH 14.2 % (12.0-15.0); WHITE BLOOD COUNT 3.2 x10^3/uL (4.8-10.8)
[2022-08-05 05:54] LABS: CALCIUM 8.4 mg/dL (8.5-10.3); CREATININE 0.6 mg/dL (0.4-1.0); POTASSIUM 2.9 mmol/L (3.5-5.0)
[2022-08-05] MEDS: CLOBETASOL 0.05% OINT 15 GM TUBE TOP SCH (08:00)
[2022-08-05] MEDS: FAMOTIDINE 20 MG TABLET PO SCH ×2 (08:00→20:44)
[2022-08-05] MEDS: CETIRIZINE 10 MG TABLET PO SCH ×2 (08:00→20:44)
[2022-08-05] MEDS: FLUTICASONE NASAL SPRAY NAS SCH (08:01)
[2022-08-05] MEDS: ENOXAPARIN 40 MG/0.4 ML SYRINGE SUBQ SCH (08:01)
[2022-08-05] MEDS: TRIAMCINOLONE 0.1% CREAM 15 GM TUBE TOP SCH ×2 (08:02→20:45)
[2022-08-05] MEDS: INSULIN LISPRO 300 UNIT/3 ML PEN SUBQ SCH ×7 (08:09→20:55)
--- NOTE | 2022-08-05 09:05 | PROVIDER PROGRESS NOTE ---
Assessment/Plan - Problem List (1) Type 2 diabetes mellitus, uncontrolled Assessment/Plan: This woman does not have any history of type 2 diabetes mellitus. She is followed closely for her cancer treatment and her labs do not indicate diabetes. 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 Nevertheless, she was in DKA on admission with acidosis and dehydration. Troponins were negative. There was no evidence of infection in lung or urine. There were no external drugs other than the steroids that could have done this. 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 Linda Ellis, from diabetic center, has said that Keytruda causes type 1 diabetes mellitus. She was admitted to the ICU and placed on an insulin drip and received iv fluids for hydration. Eventually her DKA resolved. She is out of the ICU. She is now ordered to get Lantus insulin at night and sliding scale insulin with meals Her diet is low carb We is getting diabetic education This morning she was hypoglycemic, glu 59. Hypoglycemia protocol was instituted Plan: Cont with diabetic teaching by her MedSurg RN, so she can administer her own insulin, in addition to getting Diabetic MAC RN education We will adjust her nighttime Lantus down, because of the morning hypoglycemia; Lantus to decrease from 25 U to 10 U Mill Roll Operator Sho had recommended restarting some insulin with meals, and 4 units with meals was ordered yesterday She is not yet ready for discharge, given the hypoglycemia she had this morning, and she has need for further adjustment of all her insulin doses. We will also order PT eval, since she herself feels deconditioned from being hospitalized and mostly in bed Qualifiers: Diabetes mellitus type: drug or chemical induced Diabetes mellitus compli cation detail: without coma Qualified Code(s): E09.10 - Drug or chemical induced diabetes mellitus with ketoacidosis without coma (2) Hypokalemia Conclusion/Plan: Labs were all reviewed. Her K was 6.0 on admission, most likely attributed to fluid shifts. She was probably hyperosmolar. We expected her to be hypokalemic in the face of nausea and vomiting. She was not on spironolactone. She was not on an ISA inhibitor. She was started on insulin drip safely, since her Potassium was elevated enough. Since being on the insulin drip, potassium has come down as expected. For the last several days she has been hypokalemic, likely due to new Insulin use. She has received Potassium rider. Today K 2.9 Plan: Continue to give K replacement orally and with IV rider We are decreasing the insulin dose overall so this should help with the low potassium levels She is not yet ready for discharge since we have not yet established proper insulin doses and she may need daily potassium replacement (3) Depression with anxiety Conclusion/Plan: Longstanding duration. Patient has been taking alprazolam 0.25 daily for a few years now. 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 Scattered throughout forearms, back, face which are the most prevalent, but has small 3 mm ones on her legs, which are small pink dots. 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 She has been followed by dermatology Elma Goodwin with [facility]. Biopsy was done. 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 Hence, she was on the steroids that were started day before admission. Here we did not resume her steroids, due to presenting with DKA. Plan: Once we get her glucose under control we may be able to resume steroids. She is leaning to NOT resuming steroids and would rather use topical treatment to avoid the hyperglycemia. 0.1% triamcinolone cream apply daily to the face, 0.05% clobetasol cream apply to her body. Right now she was doing 2 weeks on, 1 week off. We have recommended 5 days on, 2 days off. (5) Breast cancer metastasized to lung Conclusion/Plan: Very unusual case. This patient presented close to 2 decades after her initial diagnosis. She says that it is not a new primary. It is recurrent breast ca ncer. Keytruda is used in triple negative cancer that cannot be surgically removed and has failed other chemotherapy. She presents with vague systemic complaints of nausea, decreased appetite, fatigue, and can all be associated with Keytruda. Abdominal pain with diarrhea can be part of Keytruda side effects. But this seems to be in association with hyperglycemia. And the Keytruda was stopped 7 weeks ago. Plan: Her cancer is being managed by her oncologist as an outpt. Oncologist does know she is here. (6) YOLETTE (acute kidney injury) Conclusion/Plan: Resolved It was from severe dehydration. Baseline creatinine is usually 0.9. On admission, she had profoundly dry cracked lips, dry oral mucosa. Eyes were shrunken and so were her temples. Plan: Hydration was given by iv until her BUN and creatinine were normal 2 days ago. - Current Meds Current Meds: Current Medications Generic Name Dose Route Start Last Admin Trade Name Freq PRN Reason Stop Dose Admin Carboxymethylcellulose 1 drops 08/03/22 13:37 08/03/22 13:54 Carboxymethylcellulose Ophth Drops EACHEYE 1 drops PRN PRN Administration Dry Eye Cetirizine HCl 10 mg 08/02/22 21:00 08/05/22 08:00 Cetirizine 10 Mg Tablet PO 10 mg BID PEBBLES Administration Clobetasol Propionate 1 applic 08/02/22 12:03 08/05/22 08:00 Clobetasol 0.05% Oint 15 Gm Tube TOP 1 applic DAILY PEBBLES Administration Enoxaparin Sodium 40 mg 08/02/22 09:00 08/05/22 08:01 Enoxaparin 40 Mg/0.4 Ml Syringe SUBQ 40 mg DAILY PEBBLES Administration Famotidine 20 mg 08/02/22 21:00 08/05/22 08:00 Famotidine 20 Mg Tablet PO 20 mg BID PEBBLES Administration Fluticasone Propionate 2 sprays 08/02/22 13:00 08/05/22 08:01 Fluticasone Nasal [place] DOMITILA 2 sprays DAILY PEBBLES Administration Insulin Human Lispro 1 - 5 unit 08/04/22 17:00 08/05/22 08:09 Insulin Lispro 300 Unit/3 Ml Pen SUBQ Not Given 0800,1200,1700,2100 [facility] Protocol Magnesium Oxide 400 mg 08/03/22 21:00 08/04/22 21:45 Magnesium Oxide 400 Mg Tablet PO 400 mg QPM PEBBLES Administration Sodium Chloride 10 ml 08/01/22 17:00 08/05/22 08:02 Sodium Chloride Flush 0.9% 10 Ml Syringe IVP 10 ml 0100,0900,1700 PEBBLES Administration Sodium Chloride 10 ml 08/01/22 13:12 08/03/22 04:56 Sodium Chloride Flush 0.9% 10 Ml Syringe IVP 30 ml PRN PRN Administration NEEDED PER PROVIDER ORDERS Triamcinolone Acetonide 1 applic 08/02/22 13:00 08/05/22 08:02 Triamcinolone 0.1% Cream 15 Gm Tube TOP 1 applic BID PEBBLES Administration - Lab Result Fish Bone Diagrams: 08/05/22 05:39 08/05/22 05:39 - Additional Planning My Orders: My Active Orders 08/04/22 12:38 Diabetic Education [RC] AC 08/04/22 17:00 Insulin Lispro [Humalog Kwikpen U-100] 1 - 5 unit SUBQ 0800,1200,1700,2100 08/05/22 21:00 Insulin Glargine-Yfgn [Semglee] 10 unit SUBQ QPM Subjective - Subjective Patient Reports: Feeling Better, Resting Comfortably, Other (She feels "the weakness she has ever felt". She administered her own insulin subcu today) Objective Vital Signs: Vital Signs - 24 hr 08/04/22 08/04/22 08/05/22 17:49 23:41 07:21 Temperature 37.1 C 36.8 C 37 C Heart Rate [ 92 115 H 94 Brachial] Respiratory 18 18 16 Rate Blood Pressure 127/56 L [Left Brachial artery] Blood Pressure 140/65 H 137/77 H [Right Brachial artery] O2 Saturation 99 95 98 Oxygen O2 Source Room air I&O (Last 24 Hrs): Intake and Output Totals x24h 08/03/22 08/04/22 08/05/22 23:59 23:59 23:59 Intake Total 2703.333 1627 640 Output Total 0 425 Balance 2703.333 1627 215 General: Alert HEENT: Other (Thin, has alopecia, multiple papules on face and entire body) Neck: Supple, No JVD Neuro: Alert, Non Focal Cardiovascular: Regular rate Respiratory: No respiratory distress Abdomen: No tenderness Extremities: No clubbing, Other (Couple irregular red papules on face, body and extrem) - Results Results: Laboratory Results WBC 3.2 x10^3/uL (4.8-10.8) L 08/05/22 05:39 RBC 3.18 10^6/uL (4.20-5.40) L 08/05/22 05:39 Hgb 10.2 g/dL (12.0-16.0) L 08/05/22 05:39 Hct 30.3 % (37.0-47.0) L 08/05/22 05:39 MCV 95.3 fL (81.0-99.0) 08/05/22 05:39 MCH 32.1 pg (27.0-31.0) H 08/05/22 05:39 MCHC 33.7 g/dL (32.0-36.0) 08/05/22 05:39 RDW 14.2 % (12.0-15.0) 08/05/22 05:39 Plt Count 104 10^3/uL (130-450) L 08/05/22 05:39 MPV 10.1 fL (7.9-10.8) 08/05/22 05:39 Neut # (Auto) 2.1 10^3/uL (1.5-6.6) 08/05/22 05:39 Lymph # (Auto) 0.7 10^3/uL (1.5-3.5) L 08/05/22 05:39 [place] # (Auto) 0.3 10^3/uL (0.0-1.0) 08/05/22 05:39 Eos # (Auto) 0.1 10^3/uL (0.0-0.7) 08/05/22 05:39 Baso # (Auto) 0.0 10^3/uL (0.0-0.1) 08/05/22 05:39 Absolute Nucleated RBC 0.00 x10^3/uL 08/05/22 05:39 Total Counted 100 08/01/22 11:35 Band Neuts % (Manual) 10 % (0-10) 08/01/22 11:35 Abnorm Lymph % (Manual) 0 % 08/01/22 11:35 Metamyelocytes % 5 % (-0) H 08/01/22 11:35 Myelocytes % 9 % (-0) H 08/01/22 11:35 Nucleated RBC % 0.0 /100WBC 08/05/22 05:39 Neutrophils # (Manual) 11.8 10^3/uL (1.5-6.6) H 08/01/22 11:35 Lymphocytes # (Manual) 0.4 10^3/uL (1.5-3.5) L 08/01/22 11:35 Monocytes # (Manual) 0.4 10^3/uL (0.0-1.0) 08/01/22 11:35 Eosinophils # (Manual) 0.0 10^3/uL (0-0.7) 08/01/22 11:35 Basophils # (Manual) 0.0 10^3/uL (0-0.1) 08/01/22 11:35 Differential Comment MANUAL DIFFERENTIAL 08/01/22 11:35 Manual Slide Review Indicated 08/04/22 06:38 WBC Morphology PELGER HUET ANOMALY (NORMAL) 1+ TOXIC GRANULATION (NORMAL) 08/01/22 11:35 WBC Morphology PELGER HUET ANOMALY (NORMAL) 1+ TOXIC GRANULATION (NORMAL) 08/01/22 11:35 Platelet Estimate DECREASED (<130,000) (NORMAL) 08/04/22 06:38 Platelet Morphology NORMAL APPEARANCE (NORMAL) 08/04/22 06:38 RBC Morph Micro Appear NORMAL APPEARANCE (NORMAL) 08/04/22 06:38 VBG pH 7.383 (7.31-7.41) 08/03/22 05:20 VBG pCO2 22.0 mmHg (41-51) L 08/01/22 13:53 VBG pO2 59.2 mmHg (25-47) H 08/01/22 13:53 VBG HCO3 5.2 mmol/L (23-28) L 08/01/22 13:53 VBG Total CO2 5.9 mmol/L (24-29) L 08/01/22 13:53 VBG O2 Saturation 87.0 % (60-80) H 08/01/22 13:53 VBG Base Excess -24.8 mmol/L (-2 - +2) L 08/01/22 13:53 Ionized Calcium 1.16 mmol/L (1.15-1.33) 08/03/22 05:20 Sodium 140 mmol/L (135-145) 08/05/22 05:39 Potassium 2.9 mmol/L (3.5-5.0) L 08/05/22 05:39 Chloride 107 mmol/L (101-111) 08/05/22 05:39 Carbon Dioxide 29 mmol/L (21-32) 08/05/22 05:39 Anion Gap 4.0 (6-13) L 08/05/22 05:39 BUN 10 mg/dL (6-20) 08/05/22 05:39 Creatinine 0.6 mg/dL (0.4-1.0) 08/05/22 05:39 Estimated GFR (MDRD) 99 (>89) 08/05/22 05:39 Glucose 84 mg/dL (70-100) 08/05/22 05:39 POC Whole Bld Glucose 122 mg/dL (70 - 100) H 08/05/22 07:46 Estimat Average Glucose 180 mg/dL (70-100) H 08/03/22 05:20 Hemoglobin A1c % 7.9 % (4.27-6.07) H 08/03/22 05:20 Calcium 8.4 mg/dL (8.5-10.3) L 08/05/22 05:39 Ionized Calcium YES 08/01/22 18:50 Phosphorus 1.9 mg/dL (2.5-4.6) L 08/04/22 06:38 Magnesium 2.2 mg/dL (1.7-2.8) 08/03/22 05:20 Total Bilirubin 1.5 mg/dL (0.2-1.0) H 08/01/22 11:35 AST 22 IU/L (10-42) 08/01/22 11:35 ALT 36 IU/L (10-60) 08/01/22 11:35 Alkaline Phosphatase 147 IU/L (42-121) H 08/01/22 11:35 Troponin I High Sens 22.7 ng/L (2.3-14.8) H* 08/01/22 13:21 Total Protein 8.1 g/dL (6.7-8.2) 08/01/22 11:35 Albumin 4.1 g/dL (3.2-5.5) 08/01/22 11:35 Globulin 4.0 g/dL (2.1-4.2) 08/01/22 11:35 Albumin/Globulin Ratio 1.0 (1.0-2.2) 08/01/22 11:35 Lipase 36 U/L (22-51) 08/01/22 11:35 Urine Color YELLOW 08/01/22 13:21 Urine Clarity CLEAR (CLEAR) 08/01/22 13:21 Urine pH 5.5 PH (5.0-7.5) 08/01/22 13:21 Ur Specific [place] >=1.030 (1.002-1.030) H 08/01/22 13:21 Urine Protein 30 mg/dL (NEGATIVE) H 08/01/22 13:21 Urine Glucose (UA) >=1000 mg/dL (NEGATIVE) H 08/01/22 13:21 Urine Ketones 40 mg/dL (NEGATIVE) H 08/01/22 13:21 Urine Occult Blood LARGE (NEGATIVE) H 08/01/22 13:21 Urine Nitrite NEGATIVE (NEGATIVE) 08/01/22 13:21 Urine Bilirubin NEGATIVE (NEGATIVE) 08/01/22 13:21 Urine Urobilinogen 0.2 (NORMAL) E.U./dL (NORMAL) 08/01/22 13:21 Ur Leukocyte Esterase NEGATIVE (NEGATIVE) 08/01/22 13:21 Urine RBC 6-10 /HPF (0-5) H 08/01/22 13:21 Urine WBC 11-25 /HPF (0-5) H 08/01/22 13:21 Ur Squamous Epith Cells RARE Squamous (<= Few) 08/01/22 13:21 Urine Bacteria Rare /HPF (None Seen) 08/01/22 13:21 Urine Casts 11-25 Hyaline Casts /LPF 08/01/22 13:21 Ur Microscopic Review INDICATED 08/01/22 13:21 Urine Culture Comments NOT INDICATED 08/01/22 13:21 Nasal Adenovirus (PCR) NOT DETECTED 08/01/22 11:50 Nasal B. parapertussis DNA (PCR) NOT DETECTED 08/01/22 11:50 Nasal Coronavir 229E PCR NOT DETECTED 08/01/22 11:50 Nasal Coronavir HKU1 PCR NOT DETECTED 08/01/22 11:50 Nasal Coronavir NL63 PCR NOT DETECTED 08/01/22 11:50 Nasal Coronavir OC43 PCR NOT DETECTED 08/01/22 11:50 Nasal Enterovir/Rhinovir PCR NOT DETECTED 08/01/22 11:50 Nasal Influenza B PCR NOT DETECTED 08/01/22 11:50 Nasal Influenza A PCR NOT DETECTED 08/01/22 11:50 Nasal Parainfluen 1 PCR NOT DETECTED 08/01/22 11:50 Nasal Parainfluen 2 PCR NOT DETECTED 08/01/22 11:50 Nasal Parainfluen 3 PCR NOT DETECTED 08/01/22 11:50 Nasal Parainfluen 4 PCR NOT DETECTED 08/01/22 11:50 Nasal RSV (PCR) NOT DETECTED 08/01/22 11:50 Nasal Screen MRSA (PCR) NEGATIVE (NEGATIVE) 08/01/22 14:22 Nasal B.pertussis DNA PCR NOT DETECTED 08/01/22 11:50 Nasal C.pneumoniae (PCR) NOT DETECTED 08/01/22 11:50 Domitila Human Metapneumo PCR NOT DETECTED 08/01/22 11:50 Nasal M.pneumoniae (PCR) NOT DETECTED 08/01/22 11:50 Nasal SARS-CoV-2 (PCR) NOT DETECTED 08/01/22 11:50 Serum Ketones MODERATE (NEGATIVE) H 08/01/22 12:26 - Procedures Procedures: Procedures COLONOSCOPY (05/24/14) Sepsis Event Note (H) - Evaluation Current Stage of Sepsis: Ruled out
[2022-08-05] MEDS: POTASSIUM CHLOR 10 MEQ/100 ML 10 MEQ/100 ML BAG IV SCH ×2 (12:42→13:46)
[2022-08-05] MEDS: POTASSIUM CHLORIDE 10 MEQ CAPSULE PO SCH (12:42)
[2022-08-05] MEDS ORDERED: SODIUM CHLORIDE 0.9% 500 ML IV ONE (20:32)
[2022-08-05] MEDS: MAGNESIUM OXIDE 400 MG TABLET PO SCH (20:44)
[2022-08-05] MEDS ORDERED: INSULIN GLARGINE-YFGN 300 UNIT/3 ML PEN SUBQ SCH (21:00)
[2022-08-06] MEDS: SODIUM CHLORIDE FLUSH 0.9% 10 ML SYRINGE IVP SCH ×2 (00:12→07:44)
[2022-08-06 05:10] LABS: BASOPHILS % (AUTO) 0.7 %; EOSINOPHILS # (AUTO) 0.1 10^3/uL (0.0-0.7); EOSINOPHILS % (AUTO) 3.3 %; HCT - HEMATOCRIT 29.5 % (37.0-47.0); HGB - HEMOGLOBIN 9.6 g/dL (12.0-16.0); LYMPHOCYTES # (AUTO) 0.5 10^3/uL (1.5-3.5); LYMPHOCYTES % (AUTO) 17.9 %; MEAN CORPUSCULAR HEMOGLOBIN 31.5 pg (27.0-31.0); MEAN CORPUSCULAR HGB CONC 32.5 g/dL (32.0-36.0); MEAN CORPUSCULAR VOLUME 96.7 fL (81.0-99.0); MEAN PLATELET VOLUME 10.2 fL (7.9-10.8); MONOCYTES # (AUTO) 0.4 10^3/uL (0.0-1.0); MONOCYTES % (AUTO) 11.9 %; NEUTROPHILS % (AUTO) 65.5 %; PLT - PLATELET COUNT 116 10^3/uL (130-450); RED BLOOD COUNT 3.05 10^6/uL (4.20-5.40); RED CELL DISTRIBUTION WIDTH 14.4 % (12.0-15.0)
[2022-08-06 05:19] LABS: CALCIUM 8.6 mg/dL (8.5-10.3); CREATININE 0.6 mg/dL (0.4-1.0); POTASSIUM 4.1 mmol/L (3.5-5.0)
[2022-08-06] MEDS: CETIRIZINE 10 MG TABLET PO SCH (07:44)
[2022-08-06] MEDS: ENOXAPARIN 40 MG/0.4 ML SYRINGE SUBQ SCH (07:44)
[2022-08-06] MEDS: FAMOTIDINE 20 MG TABLET PO SCH (07:44)
[2022-08-06] MEDS: POTASSIUM CHLORIDE 10 MEQ CAPSULE PO SCH (07:44)
[2022-08-06] MEDS: TRIAMCINOLONE 0.1% CREAM 15 GM TUBE TOP SCH (07:46)
[2022-08-06] MEDS: CLOBETASOL 0.05% OINT 15 GM TUBE TOP SCH (07:46)
[2022-08-06] MEDS: FLUTICASONE NASAL SPRAY NAS SCH (07:46)
[2022-08-06] MEDS: INSULIN LISPRO 300 UNIT/3 ML PEN SUBQ SCH ×3 (07:47→12:25)
--- NOTE | 2022-08-06 08:48 | Discharge Plan ---
Discharge Plan Problem Reviewed?: Yes Disposition: Home, Self Care Condition: Stable Prescriptions: Blood-Glucose Meter [Glucometer] 1 each SQ ACHS #1 each Insulin Lispro [Humalog Kwikpen U-100] 2 - 10 unit SUBQ ACHS #1 each Insulin Glargine [Lantus Solostar] 5 - 15 unit SQ BID #1 ea Potassium Chloride [Micro-K] 10 meq PO DAILYWM #30 cap Lancet/Gluc Test Strip/[place] [Tempo Refill Kit] 1 each SQ ACHS #120 ea Diet: Diabetic Activity Restrictions: Activity as Tolerated Shower Restrictions: No Driving Restrictions: No Assistance Devices: Walker Weight Bearing: Full Weight Instruction Topics: DKA Prevent Ch Health Concerns: You were hospitalized in the intensive care unit for managing diabetic ketoacidosis (DKA). We have found that you have diabetes, possibly caused by Keytruda. You received instructions on how to use insulin injections, check your blood sugar with a fingerstick test, and to follow a diabetic diet. Please follow the new list of medications that you should be taking. All new prescription for insulin and diabetic supplies have been electronically sent to your [facility] pharmacy in [place]. Please see your primary care provider in the next 1 to 2 weeks for hospital follow-up visit. Please also attend [facility] Diabetic Education sessions. Physical Therapist did provide you with a walker. You would qualify to attend outpatient rehab sessions, which would need to be ordered by your primary care provider. Plan of Treatment: As above. Care Goals: Improvement in symptoms and stabilization are the goals. Assessment: The patient understands and is agreeable with the plan. Additional Instructions or Follow Up instructions: If you have new or worsening symptoms, call your primary care provider or specialist for advice, or come to the ER. Follow-Up Care: [facility] - Diabetes Ed No Smoking: If you smoke, Please STOP! Call for help. Follow-up with: Jen Salamanca ARNP [Primary Care Provider] -
[2022-08-06] MEDS ORDERED: INSULIN LISPRO 300 UNIT/3 ML PEN SUBQ SCH (12:00)
--- NOTE | 2022-08-06 12:15 | DISCHARGE SUMMARY ---
Discharge Summary Admit Date: 08/01/22 Discharge Date: 08/06/22 Discharging Provider: Shante Staley MD Primary Care Provider: Jen Salamanca NP Condition at Discharge: Stable Discharge Disposition: 01 Home, Self Care - HPI History of Present Illness: This 71-year-old female has lung cancer. She was started on steroids 2 days ago. She has no previous history of diabetes. And began having abdominal cramping, nausea and vomiting. She has been unable to keep anything down and has come to the emergency room. She is found to be in DKA. She was initially diagnosed with breast cancer in 2001. She was triple negative. T2N0. Underwent CMF therapy, bilateral mastectomies. Had ROSMERY status 5 years later. In October 2021 she began having a spasmodic cough, shortness of breath after donating blood. A chest x-ray was finally done in January 2022 were the shortness of breath and cough was so pervasive. It showed a lung mass, when CT was done showed multiple bilateral masses. Some as large as 5.4 cm. Mediastinal and right hilar adenopathy. A small moderate pericardial effusion. An indeterminant left adrenal nodule. The biopsy showed her to be recurrent breast cancer. I do not have records to verify that. But the patient is a very medically literate person and says that it was recurrent metastatic breast cancer. She has been on Keytruda and Abraxane. Abraxane was eventually dropped and she is only been on Keytruda. About 7 weeks ago she developed an unusual rash. 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 She was given steroids yesterday for the first time to help with the rash. Up until now both she and her son states that she has been tolerating all of his well. Appetite has been down, but ability to ambulate, drive a car, keep house, and stay up-to-date on her appointments and medications was doing well. Yesterday, after the dose steroids, she developed nausea and vomiting. Generalized intermittent abdominal pain that seem to begin going all over. No diarrhea. No fever, cough, chills. No blood in the stool, no blood in the urine. No urgency, frequency dysuria. She is exceedingly exhausted. Vision has changed. She says that she will look at something and it seems to distort as she is looking at it. It changes color, becomes brighter or online content developer. She finally came to the emergency room today when the nausea and vomiting was nonstop. Her mouth was getting so dry. She was started to get short of breath. A full review of systems was done and she tells me that her migraine are steady. The same as always. Other than the distorted vision she swears the same classes. If she takes 4 ibuprofen it takes the migraine away almost immediately if she does not with the aura. Her allergic rhinitis is fairly good because she has been doubling up on her antihistamines for her skin rash. Lately she notices if she swallows, she has a coughing fit after swallowing. She has occasional palpitations but they are nothing new. She says that she has a problem with anxiety. She has no new chest pain, different palpitation, orthopnea, or edema. Overall her appetite has been down and she is lost about 8 pounds. She has not eaten in 2 days. She has chronic sciatica with degenerative disc disease of the lumbar spine and facet arthritis. Both hips and legs will hurt but the left leg is much worse than the right leg. It causes her to limp around. She does not need a cane or a walker. She denies seizures, syncope, memory loss. The only neurological complaint she has is chronic numbness of her hands and feet left over from the chemotherapy in 2001. In this new visual distortion that she is getting. In the emergency room temperature was 36.6, heart rate 91, blood pressure 144/53. 96% on room air. Diffuse pain, mainly in her abdomen at an 8 out of a 10. She has diffuse circular macules. They are not confluent. Spots on her face, forearms, none on her trunk, abdomen, or legs. Dr. Joy's lab evaluation showed her to have a sodium of 133, potassium 6.0. Carbon dioxide less than 6. BUN 54. Creatinine 1.9. Glucose was 856. Magnesium 2.9, total bili 1.5. Alk phos 147. He had not done a UA or troponin. I ordered those and her troponin was 22.7. Urinalysis had proteinuria, ketonuria, hematuria, red cells and white cells but was leukocyte Estrace negative, nitrite negative. She did have squamous cells. Chest x-ray had an improved right hilar infrahilar mass from when she first p resented with an abnormal chest x-ray in October 2021. - HOSPITAL COURSE Hospital Course: (1) DKA This woman did not have a history of type 2 diabetes mellitus. She is followed closely for her cancer treatment and her labs have not indicated diabetes. She was started on steroids (to treat the rash), only 2 days RINKMAN. Nevertheless, she was in DKA on admission, with acidosis and dehydration. She was admitted to the ICU and a DKA protocol was started with an insulin drip and fluids. Eventually her serum ketones cleared and she was transitioned to subcutaneous insulin and moved out of the ICU. (2) Type 2 diabetes mellitus, uncontrolled (Qualified Code(s): E09.10 - Drug or chemical induced diabetes mellitus with ketoacidosis without coma) We evaluated for a possible cause for developing DKA: Troponins were negative. There was no evidence of infection. There were no new drugs, other than the catrachito roids, to add to this problem. We obtained a consult from Linda Ellis, [facility] wet machine tender, who said that Keytruda causes type 1 diabetes mellitus. The patient was put on a diabetic diet, had multiple adjustments of long-acting and short acting insulin (especially due to some hypoglycemia), had insulin and diabetic education, and could perform subq injections and fingerstick checks and was eventually discharged. She was prescribed insulin pens, glucometer, lancets and glucose testing strips. She was advised to return to [facility] clinic for more diabetic education (3) Hypokalemia Her K was 6.0 on admission, most likely from YOLETTE, from dehydration. We expected her to be hypokalemic in the face of nausea and vomiting. She was started on insulin drip, potassium came down as expected and she was mostly hypokalemic, likely due to new Insulin use. She got oral Potassium and iv K riders. (4) Depression with anxiety Longstanding duration. 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 She has been followed by dermatology Elma Goodwin with [facility]. Biopsy was done, results are unknown. 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 Hence, she was put on the Prednisone that were started day before adm ission. Here we did not resume her steroids, due to presenting with DKA. We ordered 0.1% triamcinolone cream apply daily to the face, 0.05% clobetasol cream apply to her body. (6) Breast cancer metastasized to lung Very unusual case, since this patient presented close to 2 decades after her initial diagnosis. She says that it was not a new primary. It is recurrent chiquita ast cancer. Keytruda was used in triple negative cancer that cannot be surgically removed and has failed other chemotherapy. She presented with vague systemic complaints of nausea, decreased appetite, fatigue, all have been associated with Keytruda. Her Keytruda was stopped 7 weeks ago. (7) YOLETTE (acute kidney injury) BUN/creat were 54/3.9 at admission, from severe dehydration. Baseline creatinine is usually 0.9. On admission, she had profoundly dry cracked lips, dry oral mucosa. Eyes were shrunken and so were her temples. She was on iv fluids, and BUN creat all normalized. - ALLERGIES Allergies/Adverse Reactions: Allergies Allergy/AdvReac Type Severity Reaction Status Date / Time Cephalosporins Allergy Rash Verified 08/08/22 10:39 Iodinated Contrast Media Allergy Edema Verified 08/08/22 10:39 bandaids Allergy Itching Uncoded 08/08/22 10:39 - MEDICATIONS Home Medications: Ambulatory Orders Medication Instructions Recorded Confirmed Alprazolam 0.25 mg PO QPM PRN 05/17/13 08/08/22 Ca Carbonate/Vitamin D3/Vit K 2 each PO BID 05/17/13 08/08/22 [Viactiv Soft Chew Tablet] Cetirizine [ZyrTEC] 10 mg PO BID 05/17/13 08/08/22 Ibuprofen 400 mg PO TID 05/17/13 08/08/22 Vitamin B Complex [B Complex] 1 each PO DAILY 05/17/13 08/08/22 Glucosam/Chondr-Msm6/Manganese 1 each PO DAILY 06/19/15 08/08/22 [Glucosamine-Chondroitin Sftgl] Magnesium 500 mg PO DAILY 06/19/15 08/08/22 Ondansetron Odt [Zofran Odt] 4 - 8 mg TL Q8H PRN 08/01/22 08/08/22 Prochlorperazine Maleate 10 mg PO Q6H PRN 08/01/22 08/08/22 [Compazine] Blood-Glucose Meter [Glucometer] 1 each SQ ACHS #1 each 08/06/22 08/08/22 Clobetasol 0.05% Oint [Temovate 1 applic TOP DAILY each 08/06/22 08/08/22 0.05% Oint] Insulin Glargine [Lantus Solostar] 5 - 15 unit SQ BID #1 ea 08/06/22 08/08/22 Insulin Lispro [Humalog Kwikpen 2 - 10 unit SUBQ ACHS #1 each 08/06/22 08/08/22 U-100] Lancet/Gluc Test Strip/[place] 1 each SQ ACHS #120 ea 08/06/22 08/08/22 [Tempo Refill Kit] Pen Needle, Diabetic [Embrace Pen 1 each SQ 5XD #100 ea 08/06/22 08/08/22 Needle] Potassium Chloride [Micro-K] 10 meq PO DAILYWM #30 cap 08/06/22 08/08/22 Triamcinolone 0.1% Cream [Kenalog 1 applic TOP BID each 08/06/22 08/08/22 0.1% Cream] Blood Sugar Diagnostic [Glucose 1 each SQ ACHS #100 strip 08/07/22 08/08/22 Test Strip] Calcium Carbonate [Calcium] 2 tab PO BID 08/08/22 08/08/22 Carboxymethylcellulose 1% Opht 1 - 2 drops EACHEYE PRN PRN 08/08/22 08/08/22 [Refresh 1% Ophth Drops] Cholecalciferol [Vitamin D3] 1 tab PO BID 08/08/22 08/08/22 Famotidine [Pepcid] 1 tab PO BID 08/08/22 08/08/22 Simethicone [Mylanta Gas Minis] 1 - 2 tab PO DAILY PRN 08/08/22 08/08/22 Triamcinolone Acetonide [Nasacort] 2 spray NS HS 08/08/22 08/08/22 Aspirin EC [Ecotrin] 81 mg PO DAILY tab 08/09/22 Ciprofloxacin [Cipro] 500 mg PO BID #28 tablet 08/09/22 diltiaZEM CD [Cardizem Cd] 120 mg PO DAILY #30 cap 08/09/22 - PHYSICAL EXAM AT DISCHARGE General Appearance: positive: No acute distress, Alert, Other (Alopecia. Cachectic.) Eyes Bilateral: positive: Normal inspection, EOMI ENT: positive: ENT inspection nml, No signs of dehydration, Other (Multiple different shaped skin lesions, red, in different stages of healing) Neck: positive: Nml inspection, No JVD Respiratory: positive: No respiratory distress Cardiovascular: positive: Regular rate & rhythm Abdomen: positive: Non-tender, No distention Skin: positive: Pallor, Other (Extensive maculopapular rash w/ hypopigmentation around the red lesions, diffuse on her body, extremities and face) Extremities: positive: Non-tender, No pedal edema Neurologic/Psychiatric: positive: Oriented x3, Motor nml - LABS Result Diagrams: 08/06/22 05:00 08/06/22 05:00 - DIAGNOSTIC IMAGING Diagnostic Imaging Results: Final report reviewed - SEPSIS Current Stage of Sepsis: Ruled out - FOLLOW UP Follow Up: See PCP for hospital follow-up visit in 5 to 10 days. - TIME SPENT Time Spent in Discharge (Minutes): 60
[2022-08-06 13:30] VITALS: BP 116/58
== END 2022-08-06 14:55 | disposition home or self-care (01) | DRG 638 ==
LOC: ED 10:32 → ICU 13:12 → MS2 08-03 16:40
PROVIDERS: ADMIT Specialist; ATTEND Internal Medicine
DX: E11.10 Type 2 diabetes mellitus with ketoacidosis without coma (principal); E09.10 Drug or chemical induced diabetes mellitus with ketoacidosis without coma; C78.00 Secondary malignant neoplasm of unspecified lung; N17.9 Acute kidney failure, unspecified; J02.9 Acute pharyngitis, unspecified; R21 Rash and other nonspecific skin eruption; F41.9 Anxiety disorder, unspecified; R10.10 Upper abdominal pain, unspecified; R53.1 Weakness; Z20.822 Contact with and (suspected) exposure to COVID-19; T45.1X5A Adverse effect of antineoplastic and immunosuppressive drugs, initial encounter; E86.0 Dehydration; E87.6 Hypokalemia; F41.8 Other specified anxiety disorders; L98.2 Febrile neutrophilic dermatosis [Sweet]; C50.919 Malignant neoplasm of unspecified site of unspecified female breast; L65.9 Nonscarring hair loss, unspecified; Z90.13 Acquired absence of bilateral breasts and nipples; J30.9 Allergic rhinitis, unspecified; G43.909 Migraine, unspecified, not intractable, without status migrainosus; E78.00 Pure hypercholesterolemia, unspecified; M19.90 Unspecified osteoarthritis, unspecified site; E87.5 Hyperkalemia
CPT/HCPCS: 36415; 71045; 80048; 80053; 81001; 82009; 82330; 82803; 83036; 83690; 83735; 84100; 84132; 84484; 85025; 87150; 87633; 93005; 94640; 96361; 96374; 96375; 97161; 99285; 99291; A9270; J1170; J1650; J1815; 81003; 87086

== ENCOUNTER 2022-08-08 10:09 | Outpatient (CLI) | payer MEDICARE, OTHER | END 2022-08-08 23:59 | disposition critical access hospital (66) | LOC: EMS 10:09 | DX: R55 Syncope and collapse (principal); I48.91 Unspecified atrial fibrillation | CPT/HCPCS: A0425; A0429 ==

== ENCOUNTER 2022-08-08 10:27 | Observation (INO) | payer MEDICARE, OTHER ==
--- NOTE | 2022-08-08 10:41 | ED Physician Documentation ---
PD HPI SYNCOPE - Stated complaint Stated Complaint: NEAR SYNCOPE - Chief complaint Chief Complaint: General - History obtained from History obtained from: Patient - History of Present Illness Witnessed: Witnessed Timing - onset: How many hours ago (She had an onset of general weakness and feeling of lightheadedness and near syncope within the last couple of hours. She did feel like her heart rate was going fast. This is new symptoms for her. She had been recently hospitalized for diabetes and DKA with nausea and vomiting that was new onset.), Today Duration: Hours (1-2) Preceding symptoms: Palpitations, Dyspnea, Light headed. No: Chest pain, Abdominal pain, Nausea / vomiting Contributing factors: Recent med change (New onset diabetes with DKA recently and started on insulins just several days ago.). No: Decreased PO intake, Noxious stimulae, Just stood up Injury occurred: No: Fell Similar symptoms before: Has not had sx before Recently seen: Emergency Dept, Admitted Review of Systems Constitutional: denies: Fever, Chills Nose: denies: Rhinorrhea / runny nose, Congestion Throat: denies: Sore throat Cardiac: reports: Palpitations. denies: Pedal edema, Calf pain Respiratory: denies: Cough GI: reports: Nausea. denies: Abdominal Pain, Vomiting Skin: reports: Rash (side effect of chmo medication) Musculoskeletal: denies: Neck pain, Back pain Neurologic: reports: Generalized weakness, Near syncope. denies: Focal weakness, Syncope, Confused PD PAST MEDICAL HISTORY - Past Medical History Cardiovascular: High cholesterol Respiratory: None Neuro: Migraines Endocrine/Autoimmune: Type 2 diabetes (new onset about 1 week ago due to steroids. ) DIRECTOR: Breast cancer (2002. Bilateral mastectomy. Triple negative. CMF. Adjuvant therapy.) : None HEENT: Other (Allergic rhinitis, acne rosacea) Psych: Depression, Anxiety Musculoskeletal: Osteoarthritis, Osteoporosis, Chronic back pain Derm: Rosacea, Other (Dysplastic nevus, basal cell CA) - Past Surgical History Past Surgical History: Yes General: Colonoscopy /DIRECTOR: Mastectomy HEENT: Tonsil/Adenoidectomy Derm: Skin cancer surgery - Present Medications Home Medications: Ambulatory Orders Medication Instructions Recorded Confirmed Alprazolam 0.25 mg PO QPM PRN 05/17/13 08/08/22 Ca Carbonate/Vitamin D3/Vit K 2 each PO BID 05/17/13 08/08/22 [Viactiv Soft Chew Tablet] Cetirizine [ZyrTEC] 10 mg PO BID 05/17/13 08/08/22 Ibuprofen 400 mg PO QID PRN 05/17/13 08/08/22 Vitamin B Complex [B Complex] 1 each PO DAILY 05/17/13 08/08/22 Glucosam/Chondr-Msm6/Manganese 1 each PO DAILY 06/19/15 08/08/22 [Glucosamine-Chondroitin Sftgl] Magnesium 500 mg PO DAILY 06/19/15 08/08/22 Ondansetron Odt [Zofran Odt] 4 - 8 mg TL Q8H PRN 08/01/22 08/08/22 Prochlorperazine Maleate 10 mg PO Q6H PRN 08/01/22 08/08/22 [Compazine] Blood-Glucose Meter [Glucometer] 1 each SQ ACHS #1 each 08/06/22 08/08/22 Clobetasol 0.05% Oint [Temovate 1 applic TOP DAILY each 08/06/22 08/08/22 0.05% Oint] Insulin Glargine [Lantus Solostar] 5 - 15 unit SQ BID #1 ea 08/06/22 08/08/22 Insulin Lispro [Humalog Kwikpen 2 - 10 unit SUBQ ACHS #1 each 08/06/22 08/08/22 U-100] Lancet/Gluc Test Strip/[place] 1 each SQ ACHS #120 ea 08/06/22 08/08/22 [Tempo Refill Kit] Pen Needle, Diabetic [Embrace Pen 1 each SQ 5XD #100 ea 08/06/22 08/08/22 Needle] Potassium Chloride [Micro-K] 10 meq PO DAILYWM #30 cap 08/06/22 08/08/22 Triamcinolone 0.1% Cream [Kenalog 1 applic TOP BID each 08/06/22 08/08/22 0.1% Cream] Blood Sugar Diagnostic [Glucose 1 each SQ ACHS #100 strip 08/07/22 08/08/22 Test Strip] Lancets [Onetouch Delica Safety 1 each SQ ACHS #100 each 08/07/22 08/08/22 Lancet] - Allergies Allergies/Adverse Reactions: Allergies Allergy/AdvReac Type Severity Reaction Status Date / Time Cephalosporins Allergy Rash Verified 08/08/22 10:39 Iodinated Contrast Media Allergy Edema Verified 08/08/22 10:39 bandaids Allergy Itching Uncoded 08/08/22 10:39 - Social History Does the pt smoke?: No Smoking Status: Never smoker - POLST Patient has POLST: No POLST Status: Full Code PD ED PE NORMAL - Vitals Vital signs reviewed: Yes - General General: Alert and oriented X 3, No acute distress, Well developed/nourished - HEENT HEENT: Atraumatic - Neck Neck: Supple, no meningeal sign, No adenopathy, No bruit - Cardiac Cardiac: No murmur. No: RRR (irregular and rapid at 135-155) - Respiratory Respiratory: Clear bilaterally - Abdomen Abdomen: Soft, Non tender - Derm Derm: Normal color, Warm and dry - Extremities Extremities: No tenderness to palpate, No edema, No calf tenderness / cord - Neuro Neuro: Alert and oriented X 3, No motor deficit, Normal speech Results - Vitals Vitals: Vital Signs - 24 hr 08/08/22 08/08/22 08/08/22 10:34 11:48 12:00 Temperature 36.8 C Heart Rate 136 H 130 H 129 H Respiratory 15 15 16 Rate Blood Pressure 123/79 120/71 112/72 O2 Saturation 98 99 100 08/08/22 08/08/22 12:23 13:00 Temperature Heart Rate 112 H 109 H Respiratory 12 13 Rate Blood Pressure 119/69 95/63 O2 Saturation 99 99 Oxygen O2 Source Room air - EKG (time done) 10:30 EKG releavant findings:: EKG personally interpreted by author of this note. Relevant findings are: Rate: Rate (enter#) (124) Rhythm: Atrial fibrillation [place]: Normal QRS: Normal Ischemia: Normal ST segments. No: ST elevation c/w ischemia, ST depression Compare to prior EKG: Changed from prior EKG (08/01/22 was NSR but morphology of complexes appeared the same. ) - Labs Labs: Laboratory Tests 08/08/22 08/08/22 08/08/22 11:15 11:15 11:15 WBC 3.9 L RBC 3.33 L Hgb 10.7 L Hct 32.6 L MCV 97.9 MCH 32.1 H MCHC 32.8 RDW 14.6 Plt Count 162 MPV 10.1 Neut # (Auto) 2.4 Lymph # (Auto) 0.6 L [place] # (Auto) 0.7 Eos # (Auto) 0.2 Baso # (Auto) 0.0 Absolute Nucleated RBC 0.00 Nucleated RBC % 0.0 Sodium 140 Potassium 3.5 Chloride 108 Carbon Dioxide 25 Anion Gap 7.0 BUN 23 H Creatinine 0.6 Estimated GFR (MDRD) 99 Glucose 124 H Calcium 8.5 Magnesium 1.7 Total Bilirubin 0.5 AST 29 ALT 37 Alkaline Phosphatase 87 Troponin I High Sens 5.6 B-Natriuretic Peptide Total Protein 5.9 L Albumin 2.9 L Globulin 3.0 Albumin/Globulin Ratio 1.0 Lipase 1728 H TSH 08/08/22 08/08/22 11:15 11:15 WBC RBC Hgb Hct MCV MCH MCHC RDW Plt Count MPV Neut # (Auto) Lymph # (Auto) [place] # (Auto) Eos # (Auto) Baso # (Auto) Absolute Nucleated RBC Nucleated RBC % Sodium Potassium Chloride Carbon Dioxide Anion Gap BUN Creatinine Estimated GFR (MDRD) Glucose Calcium Magnesium Total Bilirubin AST ALT Alkaline Phosphatase Troponin I High Sens B-Natriuretic Peptide 70 Total Protein Albumin Globulin Albumin/Globulin Ratio Lipase TSH 4.37 - Rads (name of study) chest xray Relevant Findings:: Prelim report reviewed (no acute process), See rad report PD Medical Decision Making - ED course Drug Therapy Requiring Monitoring for Toxicity: She had an IV started. She was given diltiazem 15 mg and then 10 mg IV to slow the heart rate. It did slowed moderately. She remained with good blood pressu re. However he was still approximately 1 10-1 20. Diltiazem drip is started. Her magnesium and potassium were slightly low and she was given supplements of both. She was given IV magnesium. She does not appear to be in CHF. She had been here recently hospitalized but there is no leg tenderness or swelling to suggest DVT. Her initial troponin level was in the normal range but will need to be repeated given the short interval timing from onset to now being seen. She is improving and comfortable with normal respirations and no chest pain on the diltiazem drip. I talked with the hospitalist who will place the patient in the hospital for further care and evaluation. - Critical Care Time(min): 35 Time Includes: Direct patient care, Review records, Reassess patient, Document care, Coordinate care, Medical consult Data interpretation: Labs, CXR Procedures excluded from critical care time: EKG Departure - Departure Disposition: ED Place in Observation Clinical Impression: General weakness, New onset atrial fibrillation, Near syncope, Diabetes Condition: Stable Record reviewed to determine appropriate education?: Yes
[2022-08-08] MEDS ORDERED: diltiaZEM INJ 125 MG in DEXTROSE 5% 100 ML IV STA (11:08)
[2022-08-08] MEDS ORDERED: diltiaZEM INJ 5 MG/ML VIAL IVP STA ×2 (11:08→12:03)
[2022-08-08] MEDS ORDERED: SODIUM CHLORIDE 0.9% 1,000 ML IV STA (11:08)
[2022-08-08 11:21] LABS: BASOPHILS % (AUTO) 0.5 %; EOSINOPHILS # (AUTO) 0.2 10^3/uL (0.0-0.7); EOSINOPHILS % (AUTO) 3.9 %; HCT - HEMATOCRIT 32.6 % (37.0-47.0); HGB - HEMOGLOBIN 10.7 g/dL (12.0-16.0); LYMPHOCYTES # (AUTO) 0.6 10^3/uL (1.5-3.5); LYMPHOCYTES % (AUTO) 14.2 %; MEAN CORPUSCULAR HEMOGLOBIN 32.1 pg (27.0-31.0); MEAN CORPUSCULAR HGB CONC 32.8 g/dL (32.0-36.0); MEAN CORPUSCULAR VOLUME 97.9 fL (81.0-99.0); MEAN PLATELET VOLUME 10.1 fL (7.9-10.8); MONOCYTES # (AUTO) 0.7 10^3/uL (0.0-1.0); MONOCYTES % (AUTO) 19.2 %; NEUTROPHILS # (AUTO) 2.4 10^3/uL (1.5-6.6); NEUTROPHILS % (AUTO) 61.4 %; PLT - PLATELET COUNT 162 10^3/uL (130-450); RED BLOOD COUNT 3.33 10^6/uL (4.20-5.40); RED CELL DISTRIBUTION WIDTH 14.6 % (12.0-15.0); WHITE BLOOD COUNT 3.9 x10^3/uL (4.8-10.8)
--- NOTE | 2022-08-08 11:26 | XRAY Report ---
PROCEDURE: Chest 1 View X-Ray INDICATIONS: Chest Pain TECHNIQUE: One view of the chest was acquired. COMPARISON: 01/16/2022 08/01/2022; CT chest dated 01/21/2010 FINDINGS: Surgical changes and devices: Right chest wall aneesh catheter with the tip overlying the expected lo cation of the superior cavoatrial junction. Postsurgical changes of the bilateral chest santos. Lungs and pleura: No pleural effusions or pneumothorax. Lungs are clear. Previously noted right inf rahilar mass is not well appreciated on today's examination. Mediastinum: Mediastinal contours appear normal. Heart size is normal. Bones and chest wall: No suspicious bony lesions. Overlying soft tissues appear unremarkable. IMPRESSION: No evidence of an acute cardiopulmonary abnormality. Right infrahilar mass is not well appreciated on today's exam. Right-sided chest port unchanged. Reviewed by: Juan Santiago DO on 08/08/2022 10:24 AM JOEL Approved by: Juan Santiago DO on 08/08/2022 10:24 AM JOEL Station ID: [id number]
[2022-08-08 12:00] LABS: ALBUMIN 2.9 g/dL (3.2-5.5); BILIRUBIN,TOTAL 0.5 mg/dL (0.2-1.0); CALCIUM 8.5 mg/dL (8.5-10.3); CREATININE 0.6 mg/dL (0.4-1.0); MAGNESIUM 1.7 mg/dL (1.7-2.8); POTASSIUM 3.5 mmol/L (3.5-5.0); TOTAL PROTEIN 5.9 g/dL (6.7-8.2)
[2022-08-08] MEDS ORDERED: MAGNESIUM SULFATE 2 GRAM 2 GM/50 ML BAG IV ONE (12:04)
[2022-08-08] MEDS ORDERED: POTASSIUM CHLORIDE 20 MEQ TABLET PO STA (12:28)
[2022-08-08] MEDS ORDERED: SODIUM CHLORIDE FLUSH 0.9% 10 ML SYRINGE IVP PRN (13:46)
[2022-08-08] MEDS ORDERED: ONDANSETRON 4 MG/2 ML VIAL IVP PRN (13:46)
[2022-08-08] MEDS ORDERED: ALPRAZolam 0.25 MG TABLET PO PRN (13:50)
[2022-08-08] MEDS ORDERED: ASPIRIN CHEW 81 MG TABLET PO STA (13:53)
--- NOTE | 2022-08-08 13:59 | HISTORY & PHYSICAL EXAMINATION ---
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 Her Keytruda was stopped 8 weeks ago and she had been recently started on Prednisone. She came to the hospital after 1 day of Prednisone with c/o abd pain, N/V, and was found to be in DKA with glu 856 and pH 6.99. She was in the ICU on an insulin drip. Keytruda was ulimately felt to be the cause of developing type 1 diabetes. She required adjustments in insulin dosing to find the proper combination of long-acting and short-acting insulin and she was seen by diabetic MAC clinic educator several times. She was discharged home just 2 days ago with new insulin orders and diabetic supplies. There was a 1 day delay of getting the proper short-acting insulin pen and all her diabetic supplies, due to confusion with orders and lack of supply at her [facility] pharmacy. Randy Duff had to fill the short-acting Insulin which she finally got yesterday Today she awoke at 0900 feeling "not right". She went to the bathroom and became diaphoretic and having palpitations, was concerned she was hypoglycemic. She called her son (with whom she lives) to bring her the glucometer and supplies. She stabbed herself and there was no blood flow and she tried 2 more times and could not elicit any blood to do the glucose check. She called her son to try an additional time but then suddenly she felt extremely woozy and she collapsed off the toilet seat as the son helped her to lay down flat on the bathroom floor. There was no trauma. He called an ambulance when she had this weakness, wooziness and continued palpitations. She did not have complete syncope. I reviewed the ambulance run sheet, it shows that her first BP at the scene was 90/65 with a heart rate of 140-170. Glucose was 124, respiratory rate 19, O2 saturation 100%. The next charted blood pressure by EMS is 112/84, but with sitting her blood pressure dropped to 70/45 and heart rate miki to 165-170. She received 200 cc of fluid by EMS. In the ED she was found to be in new onset of A-fib with RVR at a rate of 140- 150. Diltiazem IV boluses of 15 mg then 10 mg were given that brought her heart rate down to 120. She was started on a Diltiazem drip. I reviewed her labs and her troponin level was unremarkable at 5.6, and a TSH level was normal at 4.37. Her BNP was 70 and chest x-ray was normal. She has prerenal azotemia with BUN/creatinine 23/0.6. She has been started on iv saline at a rapid rate and received suppl K and Mg, for borderline low serum levels. She has a very high lipase level of 1728, and at the last admission on August 01, her Lipase was normal at 36. She did not have complaints of abdominal pain, nausea, vomiting or diarrhea today. There has been no abdominal imaging done. Because she is still tachycardic at a rate of 110-120, the ED provider has reached out to me on the Hospitalist team and we discussed her case. She will be placed in Observation in the ICU for managing her new onset of A-fib, low BP, continuing with an IV diltiazem drip as we transition her to other medications and evaluate her newly elevated Lipase level. Patient reports getting palpitations over the last 1 to 2 years and thought she was having them whenever she was "anxious". When the palpitations happen and she is at home, she "lies down flat on the couch for the palpitations to resolve, which usually takes 15 to 20-minutes". There is no wooziness, syncope or diaphoresis with these episodes. She had 1 episode of syncope as a child when she got a B12 IM injection. She denies any history of heart trouble. History - Past Medical History Cardiovascular: reports: High cholesterol Respiratory: reports: Other (lung mets) Neuro: reports: Migraines Endocrine/Autoimmune: reports: Type 1 diabetes GI: denies: Diverticulitis (But did have diverticulosis) OPERATIONS MANAGEMENT TRAINEE: reports: Breast cancer (2002. Bilateral mastectomy. Triple negative. CMF. Adjuvant therapy.) : reports: None HEENT: reports: Other (Allergic rhinitis, acne rosacea) Psych: reports: Depression, Anxiety Musculoskeletal: reports: Osteoarthritis, Osteoporosis, Chronic back pain Derm: reports: Rosacea, Other (Dysplastic nevus, basal cell CA) MRSA Hx?: No - Past Surgical History General: reports: Colonoscopy /OPERATIONS MANAGEMENT TRAINEE: reports: Mastectomy HEENT: reports: Tonsil/Adenoidectomy Derm: reports: Skin cancer surgery - Family & Social History Family History Comment/Other: She is adopted so she has no family medical history that can be contributed. Her son is adopted as well. Living arrangement: At home Living Situation: With family Social History Notes: She is since 2006. Son lives with her. Never smoked. 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 She has no history of recreational substance abuse. - Substance History Use: Uses substance without health or social issues: NONE - POLST Patient has POLST: No POLST Status: Full Code Meds/Allgy - Home Medications Home Medications: Ambulatory Orders Medication Instructions Recorded Confirmed Alprazolam 0.25 mg PO QPM PRN 05/17/13 08/08/22 Ca Carbonate/Vitamin D3/Vit K 2 each PO BID 05/17/13 08/08/22 [Viactiv Soft Chew Tablet] Cetirizine [ZyrTEC] 10 mg PO BID 05/17/13 08/08/22 Ibuprofen 400 mg PO TID 05/17/13 08/08/22 Vitamin B Complex [B Complex] 1 each PO DAILY 05/17/13 08/08/22 Glucosam/Chondr-Msm6/Manganese 1 each PO DAILY 06/19/15 08/08/22 [Glucosamine-Chondroitin Sftgl] Magnesium 500 mg PO DAILY 06/19/15 08/08/22 Ondansetron Odt [Zofran Odt] 4 - 8 mg TL Q8H PRN 08/01/22 08/08/22 Prochlorperazine Maleate 10 mg PO Q6H PRN 08/01/22 08/08/22 [Compazine] Blood-Glucose Meter [Glucometer] 1 each SQ ACHS #1 each 08/06/22 08/08/22 Clobetasol 0.05% Oint [Temovate 1 applic TOP DAILY each 08/06/22 08/08/22 0.05% Oint] Insulin Glargine [Lantus Solostar] 5 - 15 unit SQ BID #1 ea 08/06/22 08/08/22 Insulin Lispro [Humalog Kwikpen 2 - 10 unit SUBQ ACHS #1 each 08/06/22 08/08/22 U-100] Lancet/Gluc Test Strip/[place] 1 each SQ ACHS #120 ea 08/06/22 08/08/22 [Tempo Refill Kit] Pen Needle, Diabetic [Embrace Pen 1 each SQ 5XD #100 ea 08/06/22 08/08/22 Needle] Potassium Chloride [Micro-K] 10 meq PO DAILYWM #30 cap 08/06/22 08/08/22 Triamcinolone 0.1% Cream [Kenalog 1 applic TOP BID each 08/06/22 08/08/22 0.1% Cream] Blood Sugar Diagnostic [Glucose 1 each SQ ACHS #100 strip 08/07/22 08/08/22 Test Strip] Calcium Carbonate [Calcium] 2 tab PO BID 08/08/22 08/08/22 Carboxymethylcellulose 1% Opht 1 - 2 drops EACHEYE PRN PRN 08/08/22 08/08/22 [Refresh 1% Ophth Drops] Cholecalciferol [Vitamin D3] 1 tab PO BID 08/08/22 08/08/22 Famotidine [Pepcid] 1 tab PO BID 08/08/22 08/08/22 Simethicone [Mylanta Gas Minis] 1 - 2 tab PO DAILY PRN 08/08/22 08/08/22 Triamcinolone Acetonide [Nasacort] 2 spray NS HS 08/08/22 08/08/22 Aspirin EC [Ecotrin] 81 mg PO DAILY tab 08/09/22 Ciprofloxacin [Cipro] 500 mg PO BID #28 tablet 08/09/22 diltiaZEM CD [Cardizem Cd] 120 mg PO DAILY #30 cap 08/09/22 - Allergies Allergies/Adverse Reactions: Allergies Allergy/AdvReac Type Severity Reaction Status Date / Time Cephalosporins Allergy Rash Verified 08/08/22 10:39 Iodinated Contrast Media Allergy Edema Verified 08/08/22 10:39 bandaids Allergy Itching Uncoded 08/08/22 10:39 Review of Systems - Eyes Eyes: reports: Blurred vision (ever since presenting with DKA on 08/01/22) - Cardiovascular Cariovascular: reports: Palpitations, Lightheadedness, Syncope - All Other Systems All Other Systems: reports: Reviewed and negative Exam - Vital Signs Vital Signs: Vital Signs x48h Temp Pulse Resp BP Pulse Ox 08/08/22 13:00 109 H 13 95/63 99 08/08/22 12:23 112 H 12 119/69 99 08/08/22 12:00 129 H 16 112/72 100 08/08/22 11:48 130 H 15 120/71 99 08/08/22 10:34 36.8 C 136 H 15 123/79 98 - Physical Exam General Appearance: positive: No acute distress, Alert, Other (Cachectic, has alopecia) Eyes Bilateral: positive: Normal inspection, EOMI ENT: positive: No signs of dehydration, Other (Has multiple large, irregular red macules on her face, some with surrounding healing skin.) Neck: positive: Nml inspection, No JVD Respiratory: positive: No respiratory distress, Breath sounds nml Cardiovascular: positive: Regular rate & rhythm, Systolic murmur Abdomen: positive: Non-tender, Nml bowel sounds, No distention Skin: positive: Warm, Dry, Pallor, Other (Varied sizes and multiple red macules with different stages of healing of her entire body, head, trunk and extremities.) Extremities: positive: No pedal edema Neurologic/Psychiatric: positive: Oriented x3, Motor nml Conclusion/Plan - Problem List (1) Near syncope Conclusion/Plan: She had a documented very low blood pressure of 70/45 when she was in the sitting position, documented by EMS at the scene. In addition she is in a new tachycardic arrhythmia. Therefore her near syncope is probably multifactorial: Partly from volume depletion, as shown in her prerenal azotemia lab test, and partly from the tachycardia, given this new onset of A-fib with RVR Plan: Place the patient in Observation status on telemetry and we will further evaluate and treat each of the problems, her hypotension and her tachycardia (2) New onset atrial fibrillation Conclusion/Plan: Patient does admit to having palpitations which were never as severe as today, that would often take 15 to 20 minutes to resolve when she laid down in a supine position. Those were never evaluated and when she was here for 7 days with her DKA recently, she never had palpitations during anxiety. In looking for an etiology for developing new A-fib: her thyroid blood test has already been checked, I reviewed the result and it is normal, she has no new or acute pulmonary disease to explain thenew onset of A-fib. She is volume depleted but not so drastic that it would cause A-fib Plan: We will manage the A-fib RVR with continueing the diltiazem drip, place her in the ICU on telemetry If she needs further rate control and blood pressure is "soft", will add Digoxin, and then will follow Dig levels intermittently to assure she is not Dig toxic We will check troponins x2 Will obtain an Echo We will give IV fluids for helping treat the volume depletion Her current [id number] score is 1 (DM), therefore 1 baby aspirin daily lifelon g will be recommended for stroke prevention. Will start aspirin now. (3) Prerenal azotemia Conclusion/Plan: Her lab values, which I reviewed, show that she has prerenal azotemia. Possibly this is from poor oral intake ever since being discharged to home from the hospital just 2 days ago Plan: We will give IV maintenance fluids and a bolus Avoid nephrotoxins Follow BMP daily (4) DM type 1 (diabetes mellitus, type 1) Conclusion/Plan: This patient has been recently hospitalized for DKA and we uncovered type 1 diabetes and it appears to have been drug-induced, caused by Keytruda. Her Keytruda was stopped 8 weeks ago she describes Patient is on newly prescribed Lantus insulin 5 units in the morning and 15 units at night. She is also on Regular insulin before meals and at bedtime on a sliding scale of 2 units to 10 units She had difficulty obtaining her short acting insulin pen after discharge which was just 2 days ago, but she says that she finally got everything yesterday. She has does not eat normal 3 meals a day which she needs to adjust to yet she says Plan: We will order a diabetic diet, fingerstick checks before meals and at bedtime, and sliding scale insulin coverage on her scale, and order hypoglycemia protocol (5) Breast cancer metastasized to lung Conclusion/Plan: As per history. She is status post bilateral mastectomy. The cancer had spread to the right lung. Chest imaging now actually shows a smaller lung area of involvement than in the past (6) Sweet syndrome Conclusion/Plan: This is the working diagnosis from dermatology. She gets topical treatment. The prednisone was to have been started to manage this rash, she only took 1 day of treatment, then was hospitalized for this DKA. Last night, the patient remembered that there was a biopsy done by the neckties painter and she went to read the report and thinks it said Staph aureus. Plan: We will resume her usual topical treatment when the medication list is reconciled by pharmacy Will request that the son bring in the pathology report that the patient was able to download on the patient portal (7) Anemia Conclusion/Plan: This is presumably anemia due to chronic, malignant disease and being on prior chemotherapy. The anemia is also partly adding to her low blood pressure Plan: We will follow CBC daily, transfuse if hemoglobin under 7 We will check an iron panel, B12 and folate levels and replace if low - Lab Results Fish Bones: 08/09/22 04:29 08/09/22 04:29 - Diagnostic Imaging Results Diagnostic Imaging Results: positive: Final report reviewed
[2022-08-08] MEDS ORDERED: IBUPROFEN 400 MG TABLET PO PRN (14:20)
--- NOTE | 2022-08-08 15:18 | CT Report ---
PROCEDURE: ABDOMEN/PELVIS WO INDICATIONS: Elevated lipase, new onset DM type I, near-syncope TECHNIQUE: Noncontrast 5 mm thick sections acquired from the diaphragms to the symphysis. 5 mm coronal and sagi ttal reformats were then performed. For radiation dose reduction, the following was used: automated exposure control, adjustment of mA and/or kV according to patient size. COMPARISON: CT chest dated 01/21/2022 FINDINGS: Image quality: Excellent. Lung bases and heart: Previously noted right lower lobe mass significantly decreased in size from com parison examination now measuring 2.5 x 1.8 cm (series 4 image 4). Liver: Unremarkable. Gallbladder and biliary tree: Unremarkable Spleen: Unremarkable Pancreas: Unremarkable Adrenals: 1.5 cm left adrenal nodule measuring 6 Hounsfield units. This is consistent with an adrenal adenoma. This is unchanged in size. Kidneys and ureters: Unremarkable. Bowel and peritoneum: No bowel distension. No pathologic free fluid. No wall thickening or surroundin g inflammation. Moderate stool burden noted throughout the colon. Lymph nodes: No central or retroperitoneal adenopathy. Vessels: Unremarkable. PELVIS Reproductive organs: Unremarkable. Bladder: Unremarkable. Lymph nodes: Unremarkable. Bones: Degenerative changes of the spine without acute osseous abnormality or aggressive appearing os seous lesion. Other: None. IMPRESSION: No evidence of an acute intra-abdominal abnormality. Decreased size of known right lower lobe mass/nodule now measuring 2.5 x 1.8 cm. 1.5 cm left adrenal adenoma. Reviewed by: Juan Santiago DO on 08/08/2022 2:17 PM JOEL Approved by: Juan Santiago DO on 08/08/2022 2:17 PM JOEL Station ID: [id number]
[2022-08-08] MEDS: SODIUM CHLORIDE 0.9% 1,000 ML IV SCH ×2 (15:19→16:39)
--- NOTE | 2022-08-08 15:54 | PHARMACY PROGRESS NOTE ---
- Best Possible Medication History Admit Date and Time: 08/08/22 1344 Processed by: Pharmacy Medication History completed: Yes Patient Interview: Completed Secondary Source(s): Pharmacy records (Pt uses Vicks spray to clear her nose.) As the person ultimately responsible for medication therapy, providers are able to order a medication from an existing home medication list in [facility] via the "Reconcile Routine" prior to Confirmation of that medication by it support analyst. Such practice is discouraged except when the physician, in their clinical judgment, deems that a medical need exists for a medication without regard to previous use.
[2022-08-08] MEDS ORDERED: DIGOXIN 125 MCG TABLET PO STA (16:27)
[2022-08-08] MEDS: SODIUM CHLORIDE FLUSH 0.9% 10 ML SYRINGE IVP SCH (16:47)
[2022-08-08] MEDS: INSULIN LISPRO 300 UNIT/3 ML PEN SUBQ SCH ×2 (17:28→22:37)
[2022-08-08] MEDS ORDERED: INSULIN GLARGINE-YFGN 300 UNIT/3 ML PEN SUBQ SCH (21:00)
[2022-08-08] MEDS ORDERED: VIACTIV SOFT PO SCH (21:00)
[2022-08-08] MEDS: CETIRIZINE 10 MG TABLET PO SCH (21:02)
[2022-08-08] MEDS: FAMOTIDINE 20 MG TABLET PO SCH (21:03)
[2022-08-08] MEDS: TRIAMCINOLONE 0.1% CREAM 15 GM TUBE TOP SCH (21:03)
[2022-08-08] MEDS ORDERED: diltiaZEM INJ 125 MG in DEXTROSE 5% 100 ML IV SCH (23:00)
[2022-08-09] MEDS: SODIUM CHLORIDE FLUSH 0.9% 10 ML SYRINGE IVP SCH ×2 (01:09→08:19)
[2022-08-09 05:15] LABS: CALCIUM, IONIZED 1.11 mmol/L (1.15-1.33); VBG PH 7.394 (7.31-7.41)
[2022-08-09 05:16] LABS: BASOPHILS % (AUTO) 0.7 %; EOSINOPHILS % (AUTO) 3.3 %; HCT - HEMATOCRIT 26.9 % (37.0-47.0); HGB - HEMOGLOBIN 8.8 g/dL (12.0-16.0); LYMPHOCYTES % (AUTO) 24.8 %; MEAN CORPUSCULAR HGB CONC 32.7 g/dL (32.0-36.0); MEAN CORPUSCULAR VOLUME 97.8 fL (81.0-99.0); MEAN PLATELET VOLUME 10.4 fL (7.9-10.8); MONOCYTES % (AUTO) 25.2 %; NEUTROPHILS % (AUTO) 45.6 %; PLT - PLATELET COUNT 157 10^3/uL (130-450); RED BLOOD COUNT 2.75 10^6/uL (4.20-5.40); RED CELL DISTRIBUTION WIDTH 14.9 % (12.0-15.0); WHITE BLOOD COUNT 2.7 x10^3/uL (4.8-10.8)
[2022-08-09 05:25] LABS: ABNORMAL LYMPHS % (MANUAL) 0 %; BAND NEUTROPHILS % (MANUAL) 0 %
[2022-08-09 05:44] LABS: CALCIUM 7.8 mg/dL (8.5-10.3); CREATININE 0.6 mg/dL (0.4-1.0); MAGNESIUM 2.2 mg/dL (1.7-2.8); PHOSPHORUS 2.7 mg/dL (2.5-4.6); POTASSIUM 3.7 mmol/L (3.5-5.0)
[2022-08-09 06:20] LABS: DIFFERENTIAL COMMENT MANUAL DIFFERENTIAL; EOSINOPHILS # (MANUAL) 0.1 10^3/uL (0-0.7); LYMPHOCYTES # (MANUAL) 0.7 10^3/uL (1.5-3.5); LYMPHOCYTES % (MANUAL) 27 %; MONOCYTES # (MANUAL) 0.4 10^3/uL (0.0-1.0); NEUTROPHILS # (MANUAL) 1.6 10^3/uL (1.5-6.6); PLATELET ESTIMATE, MANUAL NORMAL (130-450,000) (NORMAL); RBC MORPHOLOGY (MULTIPLE) NORMAL APPEARANCE (NORMAL)
[2022-08-09] MEDS ORDERED: POTASSIUM CHLORIDE 10 MEQ CAPSULE PO SCH (08:00)
[2022-08-09] MEDS: CALCIUM CARBONATE CHEW 500 MG TABLET PO SCH ×2 (08:16→11:58)
[2022-08-09] MEDS: TRIAMCINOLONE 0.1% CREAM 15 GM TUBE TOP SCH (08:17)
[2022-08-09] MEDS: FAMOTIDINE 20 MG TABLET PO SCH (08:17)
[2022-08-09] MEDS: INSULIN LISPRO 300 UNIT/3 ML PEN SUBQ SCH ×2 (08:52→11:58)
[2022-08-09] MEDS: CETIRIZINE 10 MG TABLET PO SCH (08:55)
[2022-08-09] MEDS: diltiaZEM 30 MG TABLET PO SCH ×2 (08:55→11:58)
[2022-08-09] MEDS ORDERED: INSULIN GLARGINE-YFGN 300 UNIT/3 ML PEN SUBQ SCH (09:00)
[2022-08-09] MEDS ORDERED: MAGNESIUM OXIDE 400 MG TABLET PO SCH (09:00)
[2022-08-09] MEDS ORDERED: DIGOXIN 125 MCG TABLET PO SCH (09:00)
[2022-08-09] MEDS ORDERED: VITAMIN B COMPLEX PO SCH (09:00)
[2022-08-09] MEDS ORDERED: ASPIRIN EC 81 MG TABLET PO SCH (09:00)
[2022-08-09] MEDS ORDERED: POTASSIUM CHLORIDE 20 MEQ TABLET PO ONE (09:00)
[2022-08-09] MEDS ORDERED: CLOBETASOL 0.05% OINT 15 GM TUBE TOP SCH (09:00)
--- NOTE | 2022-08-09 12:43 | PROVIDER PROGRESS NOTE ---
Hospitalist Cross-cover Note - Cross-Cover Note Cross-Cover Note: An Echo is needed to evaluate this pt's cardiac structures, given the new onset Afib. Today is Wednesday and we have no furniture repair technician available except Wednesday- here. Is a Board-certified Drain Cleaner, credentialed to perform and interpret Echoes, I performed a limited bedside Echo. Indication: A-fib Findings: Mildy dilated LA. Normal size RA. Normal aortic root diameter. Normal LV size and wall thickness. Normal LV systolic function, EF 60%. Doppler shows mild (grade 1) LV diastolic dysfunction present. Normal RV size, wall thickness and normal RV contractility Moderate mitral annular calcification, moderate mitral valve thickening and re dundancy, with borderline mitral valve prolapse. There is trace to mild mitral regurgitation. Aortic valve has mild sclerosis, good mobility, Doppler shows mild aortic regurgitation Tricuspid valve structurally normal. Doppler shows mild tricuspid regurgitation. PA pressure could not be measured from this TR jet Pulmonic valve not seen in any view There is a trivial loculated pericardial effusion seen posteriorly near the AV groove.
--- NOTE | 2022-08-09 12:53 | Discharge Plan ---
Discharge Plan Problem Reviewed?: Yes Disposition: Home, Self Care Condition: Stable Prescriptions: diltiaZEM CD [Cardizem Cd] 120 mg PO DAILY #30 cap Ciprofloxacin [Cipro] 500 mg PO BID #28 tablet Diet: Diabetic Activity Restrictions: Activity as Tolerated Shower Restrictions: No Driving Restrictions: No Assistance Devices: Walker Weight Bearing: Full Weight Instruction Topics: AFL/Afib, Stroke Prevent Live W Atrial Fib Health Concerns: You were hospitalized after you had a nearly fainting spell and we found you to have a low blood pressure and very fast heart rate which caused the faint. The fast heart rate was caused by a new abnormal heart rhythm called atrial fib (A- fib). You needed IV medicines to slow the heart rate down and have been transitioned to oral medicine (Cardizem) to control the heart rate. Also because of the A-fib, it is recommended that you be on 1 baby aspirin daily for stroke prophylaxis, lifelong. The prescription for Cardizem was electronically sent to your [facility] pharmacy. We checked for reasons that you had this new onset of A-fib. You did not have a heart attack and your heart muscle has normal strength, seen on the bedside Echo exam. You are not hyperthyroid. Possibly the small fluid seen in your pericardium (sac around your heart), is the cause of the A-fib. To be complete, in evaluation of this A-fib, you need a stress test done as an outpatient. I also recommend that you have a complete Echo exam done as an outpatient. These recommendations were sent to your primary care provider. These resume all your other medications and diabetic management. Stay well hydrated. If you again experience fainting or nearly fainting, or uncomfortable palpitations, you should seek medical help and should not be driving. 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 While you are on an antibiotic, take a probiotic or eat yogurt with live cultures, to prevent diarrhea. Plan of Treatment: As above. Care Goals: Improvement in symptoms and stabilization are the goals. Assessment: Patient understands and is agreeable with the plan. Additional Instructions or Follow Up instructions: If you have new or worsening symptoms, call your PCP or your Oncologist for advice, or come to the ER. No Smoking: If you smoke, Please STOP! Call for help. Follow-up with: Jen Salamanca ARNP [Provider Admit Priv/Credential] -
--- NOTE | 2022-08-09 13:09 | DISCHARGE SUMMARY ---
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 Her Keytruda was stopped 8 weeks ago and she had been recently started on Prednisone. She came to the hospital after 1 day of Prednisone with c/o abd pain, N/V, and was found to be in DKA with glu 856 and pH 6.99. She was in the ICU on an insulin drip. Keytruda was ulimately felt to be the cause of developing type 1 diabetes. She required adjustments in insulin dosing to find the proper combination of long-acting and short-acting insulin and she was seen by diabetic MAC clinic educator several times. She had been discharged home just 2 days ago with new insulin orders and diabetic supplies. There was a 1 day delay of getting the proper short-acting insulin pen and all her diabetic supplies, due to confusion with orders and lack of supply at her [facility] pharmacy. Randy Duff had to fill the short-acting Insulin which she finally got yesterday Today she awoke at 0900 feeling "not right". She went to the bathroom and became diaphoretic and having palpitations, was concerned she was hypoglycemic. She called her son (with whom she lives) to bring her the glucometer and supplies. She lanced her finger and there was no blood flow and she tried 2 more times and could not elicit any blood to do the glucose check. She called her son to try an additional needle stick, but then suddenly she felt extremely woozy and she collapsed off the toilet seat as the son helped her to lay down flat on the bathroom floor. There was no trauma. He called an ambulance. She did not have complete syncope. I reviewed the ambulance run sheet, it shows that her first BP at the scene was 90/65 with a heart rate of 140-170. Glucose was 124, respiratory rate 19, O2 saturation 100%. The next charted blood pressure by EMS is 112/84, but with sitting her blood pressure dropped to 70/45 and heart rate miki to 165-170. She received 200 cc of fluid by EMS. In the ED she was found to be in new onset of A-fib with RVR at a rate of 140- 150. Diltiazem IV boluses of 15 mg then 10 mg were given that brought her heart rate down to 120. She was started on a Diltiazem drip. I reviewed her labs and her troponin level was unremarkable at 5.6, and a TSH level was normal at 4.37. Her BNP was 70 and chest x-ray was normal. She has prerenal azotemia with BUN/creatinine 23/0.6. She has been started on iv saline at a rapid rate and received suppl K and Mg, for borderline low serum levels. She has a very high Lipase level of 1728, and at the last admission on August 01, her Lipase was normal at 36. She did not have complaints of abdominal pain, nausea, vomiting or diarrhea today. There has been no abdominal imaging done. Because she is still tachycardic at a rate of 110-120, the ED provider has reached out to me on the Hospitalist team and we discussed her case. She will be placed in Observation in the ICU for managing her new onset of A-fib, her low BP, continuing with an IV diltiazem drip as we transition her to other medications and evaluate her newly elevated Lipase level. Patient reports getting palpitations over the last 1 to 2 years and thought she was having them whenever she was "anxious". When the palpitations happen and she is at home, she "lies down flat on the couch for the palpitations to resolve, which usually takes 15 to 20-minutes". There is no wooziness, syncope or diaphoresis with those episodes. The palpitations have never been worked up. She had 1 episode of syncope as a child when she got a B12 IM injection. She denies any history of heart trouble. - HOSPITAL COURSE Hospital Course: (1) Near syncope She had a documented very low blood pressure of 70/45 documented by EMS at the scene. In addition she is in a new tachycardic arrhythmia, both of which likely added to the near-syncope. Her prerenal azotemia was a sign of this low BP. She was placed in observation and we managed her rapid A-fib and her low BP (see below). At discharge, she was told to stay better hydrated, and to not drive if she has lightheadedness or any repeat syncope, or if she has palpitations with this very rapid heart rate. She may need referral to Cardiology. (2) New onset atrial fibrillation This patient did admit to having palpitations in the past, never as severe as this episode, that would often take 15 to 20 minutes to resolve if she laid down in a supine position. Those palpitations were never evaluated. In looking for an etiology for developing new A-fib: her thyroid blood test and troponins were normal. She did have e limited bedside Echo done that showed normal LVEF, borderline MVP, mild left atrial argument and a loculated pericardial effusion. We placed her in the ICU on telemetry and continued the diltiazem drip and gave a dose of Dig. At 0400 the next day she converted to sinus rhythm. Diltiazem IV was weaned to off and she was started on Cardizem and discharged on Cardizem CD 120 mg daily. Her current [id number] score is 1, therefore 1 baby aspirin daily lifelong was recommended for stroke prevention. She needs an outpatient stress test to evaluate for CAD as the cause of this A-fib, and should have a complete official Echocardiogram as well. (3) Prerenal azotemia Her lab values showed that she had prerenal azotemia. Possibly this was still left over volume depletion from having had DKA. She received IV fluids. The following day, orthostatic vital signs showed no abnormality and BUN/creat normalized. (4) Pericardial effusion In the work-up for causes of the A-fib, a (limited) Echocardiogram was done. This showed a small, loculated posterior pericardial effusion, no evidence of tamponade. (5) Breast cancer metastasized to lung As per history. She is status post bilateral mastectomy. The cancer had spread to the right lung. Chest imaging now actually shows a smaller lung area of involvement than in the past. Potentially the pericardial effusion could also be malignant. (6) DM type 1 (diabetes mellitus, type 1) This patient had been recently hospitalized for DKA and we uncovered newTtype 1 diabetes mellitus, probably drug-induced, caused by Keytruda. Her Keytruda was stopped 8 weeks ago. We kept her on her usual Lantus dose and a sliding scale insulin dose and diabetic diet. (7) Elevated Lipase level She had a very high lipase level of 1728, at admission. Compared to the last recent admission, on August 01, her Lipase was normal at 36. She did not have complaints of abdominal pain, nausea, vomiting or diarrhea. CT abdominal imaging was done after she was in the ICU. The CT scan showed no evidence of pancreatic abnormality, no gallstones or gallbladder abnormality, in fact, no abdominal pathology was reported. The following day her Lipase level was down to 1296. The etiology of this elevated Lipase level is therefore unknown and needs follow-up as an outpatient. 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 She gets topical treatment which was continued here. (9) Staphylococcus infection of skin During this hospital stay, the patient remembered that her Orthotics Assistant had taken a biopsy of the skin lesions. She gave us the report of the biopsy result, obtained from her patient portal and it was reviewed. The biopsy speci men had been sent for culture which grew out Staphylococcus lugdunensis. The patient was therefore prescribed Cipro 500 twice daily to be started as an outpatient, a 7-day course was ordered, and this was chosen based on the sensitivities of that culture report. She needs further follow-up of her skin lesions and this Staph infection. (10) Anemia This is presumably anemia due to chronic, malignant disease and being on prior chemotherapy. The anemia was also likely adding to her low blood pressure. - ALLERGIES Allergies/Adverse Reactions: Allergies Allergy/AdvReac Type Severity Reaction Status Date / Time Cephalosporins Allergy Rash Verified 08/08/22 10:39 Iodinated Contrast Media Allergy Edema Verified 08/08/22 10:39 bandaids Allergy Itching Uncoded 08/08/22 10:39 - MEDICATIONS Home Medications: Ambulatory Orders Medication Instructions Recorded Confirmed Alprazolam 0.25 mg PO QPM PRN 05/17/13 08/08/22 Ca Carbonate/Vitamin D3/Vit K 2 each PO BID 05/17/13 08/08/22 [Viactiv Soft Chew Tablet] Cetirizine [ZyrTEC] 10 mg PO BID 05/17/13 08/08/22 Ibuprofen 400 mg PO TID 05/17/13 08/08/22 Vitamin B Complex [B Complex] 1 each PO DAILY 05/17/13 08/08/22 Glucosam/Chondr-Msm6/Manganese 1 each PO DAILY 06/19/15 08/08/22 [Glucosamine-Chondroitin Sftgl] Magnesium 500 mg PO DAILY 06/19/15 08/08/22 Ondansetron Odt [Zofran Odt] 4 - 8 mg TL Q8H PRN 08/01/22 08/08/22 Prochlorperazine Maleate 10 mg PO Q6H PRN 08/01/22 08/08/22 [Compazine] Blood-Glucose Meter [Glucometer] 1 each SQ ACHS #1 each 08/06/22 08/08/22 Clobetasol 0.05% Oint [Temovate 1 applic TOP DAILY each 08/06/22 08/08/22 0.05% Oint] Insulin Glargine [Lantus Solostar] 5 - 15 unit SQ BID #1 ea 08/06/22 08/08/22 Insulin Lispro [Humalog Kwikpen 2 - 10 unit SUBQ ACHS #1 each 08/06/22 08/08/22 U-100] Lancet/Gluc Test Strip/[place] 1 each SQ ACHS #120 ea 08/06/22 08/08/22 [Tempo Refill Kit] Pen Needle, Diabetic [Embrace Pen 1 each SQ 5XD #100 ea 08/06/22 08/08/22 Needle] Potassium Chloride [Micro-K] 10 meq PO DAILYWM #30 cap 08/06/22 08/08/22 Triamcinolone 0.1% Cream [Kenalog 1 applic TOP BID each 08/06/22 08/08/22 0.1% Cream] Blood Sugar Diagnostic [Glucose 1 each SQ ACHS #100 strip 08/07/22 08/08/22 Test Strip] Calcium Carbonate [Calcium] 2 tab PO BID 08/08/22 08/08/22 Carboxymethylcellulose 1% Opht 1 - 2 drops EACHEYE PRN PRN 08/08/22 08/08/22 [Refresh 1% Ophth Drops] Cholecalciferol [Vitamin D3] 1 tab PO BID 08/08/22 08/08/22 Famotidine [Pepcid] 1 tab PO BID 08/08/22 08/08/22 Simethicone [Mylanta Gas Minis] 1 - 2 tab PO DAILY PRN 08/08/22 08/08/22 Triamcinolone Acetonide [Nasacort] 2 spray NS HS 08/08/22 08/08/22 Aspirin EC [Ecotrin] 81 mg PO DAILY tab 08/09/22 Ciprofloxacin [Cipro] 500 mg PO BID #28 tablet 08/09/22 diltiaZEM CD [Cardizem Cd] 120 mg PO DAILY #30 cap 08/09/22 - PHYSICAL EXAM AT DISCHARGE General Appearance: positive: No acute distress, Alert, Other (Thin white female, has alopecia) Eyes Bilateral: positive: Normal inspection, EOMI ENT: positive: ENT inspection nml, No signs of dehydration Neck: positive: Nml inspection, No JVD Respiratory: positive: No respiratory distress, Breath sounds nml Cardiovascular: positive: Regular rate & rhythm, Systolic murmur Abdomen: positive: Non-tender, Nml bowel sounds, No distention Skin: positive: Pallor, Skin rash (Red macular rash, different shapes and sizes, all over her head, trunk and extremities.), Other Extremities: positive: Non-tender, No pedal edema Neurologic/Psychiatric: positive: Oriented x3, Motor nml - LABS Result Diagrams: 08/09/22 04:29 08/09/22 04:29 Other Lab Results: EKG done 08/09/2022 (which I interpreted) showed sinus rhythm, rate 69, left at rial enlargement, otherwise within normal limits, no further A-fib seen. - DIAGNOSTIC IMAGING Diagnostic Imaging Results: Final report reviewed - FOLLOW UP Follow Up: See PCP and Oncologist in the next 1 to 2 weeks for hospital follow-up visit. - TIME SPENT Time Spent in Discharge (Minutes): 40
[2022-08-09 13:14] VITALS: BP 122/49
== END 2022-08-09 14:38 | disposition home or self-care (01) ==
LOC: EDUNIT# → ED 10:27 → ICU 13:46
PROVIDERS: ADMIT Internal Medicine; ATTEND Internal Medicine
DX: I48.91 Unspecified atrial fibrillation (principal); R79.89 Other specified abnormal findings of blood chemistry; I31.39 Other pericardial effusion (noninflammatory); E10.9 Type 1 diabetes mellitus without complications; L98.2 Febrile neutrophilic dermatosis [Sweet]; E86.0 Dehydration; C78.01 Secondary malignant neoplasm of right lung; T45.1X5S Adverse effect of antineoplastic and immunosuppressive drugs, sequela; I95.9 Hypotension, unspecified; L08.89 Other specified local infections of the skin and subcutaneous tissue; Z79.4 Long term (current) use of insulin; Z79.82 Long term (current) use of aspirin; Z79.60 Long term (current) use of unspecified immunomodulators and immunosuppressants; Z85.3 Personal history of malignant neoplasm of breast; Z90.13 Acquired absence of bilateral breasts and nipples
CPT/HCPCS: 36415; 71045; 74176; 80048; 80053; 82330; 83690; 83735; 83880; 84100; 84443; 84484; 85025; 87150; 93005; 96365; 96366; 96376; 99285; 99291; A9270; G0378; J1815

== ENCOUNTER 2022-09-15 12:10 | Outpatient (CLI) | payer MEDICARE, OTHER ==
[2022-09-15 17:42] LABS: BILIRUBIN,URINE NEGATIVE (NEGATIVE); GLUCOSE, URINE (UA) 500 mg/dL (NEGATIVE); KETONES,URINE (UA) NEGATIVE (NEGATIVE); LEUKOCYTE ESTERASE, URINE NEGATIVE (NEGATIVE); NITRITE,URINE NEGATIVE (NEGATIVE); OCCULT BLOOD,URINE NEGATIVE (NEGATIVE); PH,URINE 6.5 PH (5.0-7.5); PROTEIN,URINE NEGATIVE (NEGATIVE); UROBILINOGEN,URINE 0.2 (NORMAL) E.U./dL (NORMAL)
[2022-09-15 17:52] LABS: CLARITY,URINE CLEAR (CLEAR)
[2022-09-16 04:09] LABS: COMPLEMENT C3 177 mg/dL (82-167); COMPLEMENT C4 39 mg/dL (12-38)
== END 2022-09-15 12:11 | disposition home or self-care (01) ==
LOC: LAB.N 12:10
DX: L93.1 Subacute cutaneous lupus erythematosus (principal)
CPT/HCPCS: 81001; 81003; 86160

== ENCOUNTER 2022-10-01 22:32 | Emergency (ER) | payer MEDICARE, OTHER ==
[2022-10-01 22:48] VITALS: BP 141/54
[2022-10-01] MEDS ORDERED: SODIUM CHLORIDE 0.9% 1,000 ML IV STA (22:53)
--- OUTSIDE RECORDS SUMMARY | 2022-10-01 22:56 | EXTERNAL MEDICAL SUMMARY RPT | Continuity of Care Document ---
Author Name Unknown Address [address] [place] [address] Phone Organization [place] Address [address] [place] [address] Phone Problems date description facility 2022-09-07 15:07 Malignant neoplasm o f overlapping sites of right bronchus [facility] 2022-09-07 15:16 Malignant neoplasm o f overlapping sites of [facility] Results/Labs test date author facility value unit interpretation Result panel 1 (unknown) (no date) (unknown) (unknown) (no value) (units unknown) (unknown) (unknown) (no date) (unknown) (unknown) [id number] (units unknown) (unknown) (unknown) (no date) (unknown) (unknown) 09/07/22 (units unknown) (unknown) (unknown) (no date) (unknown) (unknown) [address] [facility] (un its unknown) (unknown) (unknown) (no date) (unknown) (unknown) 4.6 cm. (units unknown) (unknown) (unknown) (no date) (unknown) (unknown) Accession Numb er: [id number] (units unknown) (unknown) (unknown) (no date) (unknown) (unknown) Accession Numb er: [id number] (units unknown) (unknown) (unknown) (no date) (unknown) (unknown) Age/Sex: 71 / F Date of Service: (units unknown) (unknown) (unknown) (no date) (unknown) (unknown) [place] [address] (units unknown) (unknown) (unknown) (no date) (unknown) (unknown) Approved by: Jocelin Brown M.D. on 09/07/2022 at 16:14 (units unknown) (unknown) (unknown) (no date) (unknown) (unknown) Approved by: Sherita Hernandez M.D. on 09/07/2022 at 16:54 (units unknown) (unknown) (unknown) (no date) (unknown) (unknown) Bones: No fractures or dislocations. No suspicious bony lesions. (units unknown) (unknown) (unknown) (no date) (unknown) (unknown) COMPARISON: None. (u nits unknown) (unknown) (unknown) (no date) (unknown) (unknown) Complex focus of echogenicity is noted in the posterior fossa. It measures 5.2 (units unknown) (unknown) (unknown) (no date) (unknown) (unknown) Complex focus within the posterior fossa of possibly representing complex [place] (units unknown) (unknown) (unknown) (no date) (unknown) (unknown) : 1 Acct:[id number] (units unknown) (unknown) (unknown) (no date) (unknown) (unknown) Dictated by: Jocelin Brown M.D. on 09/07/2022 at 16:14 (units unknown) (unknown) (unknown) (no date) (unknown) (unknown) Dictated by: Sherita Hernandez M.D. on 09/07/2022 at 16:54 (units unknown) (unknown) (unknown) (no date) (unknown) (unknown) FINDINGS: The common femoral, femoral and popliteal veins are normally (units unknown) (unknown) (unknown) (no date) (unknown) (unknown) FINDINGS: (units unknown) (unknown) (unknown) (no date) (unknown) (unknown) However, recom mend correlation to other potential etiologies such as hematoma if (units unknown) (unknown) (unknown) (no date) (unknown) (unknown) IMPRESSION: No radiographic abnormalities. (units unknown) (unknown) (unknown) (no date) (unknown) (unknown) IMPRESSION: (units unknown) (unknown) (unknown) (no date) (unknown) (unknown) INDICATIONS: VENOUS OBSTRUCTION (units unknown) (unknown) (unknown) (no date) (unknown) (unknown) [facility] (uni ts unknown) (unknown) (unknown) (no date) (unknown) (unknown) Loc: RAD (units unknown) (unknown) (unknown) (no date) (unknown) (unknown) No deep venous thrombosis. (units unknown) (unknown) (unknown) (no date) (unknown) (unknown) Ordering Polo kate: Kaitlin Ghotra P.A-C (units unknown) (unknown) (unknown) (no date) (unknown) (unknown) PROCEDURE: US PERIPH VENOUS LOW EXTREM RT (units unknown) (unknown) (unknown) (no date) (unknown) (unknown) PROCEDURE: XR KNEE RT 3V (units unknown) (unknown) (unknown) (no date) (unknown) (unknown) Patient: Ninfa Espinoza MR#: [id number] (units unknown) (unknown) (unknown) (no date) (unknown) (unknown) Procedure: US periph venous low extrem rt (units unknown) (unknown) (unknown) (no date) (unknown) (unknown) Procedure: XR knee RT 3V (units unknown) (unknown) (unknown) (no date) (unknown) (unknown) Real-time imag ing, as well as color and pulse Doppler interrogation, were (units unknown) (unknown) (unknown) (no date) (unknown) (unknown) Signed (units unknown) (unknown) (unknown) (no date) (unknown) (unknown) Soft tissues: No joint effusion. No suspicious soft tissue calcifications. (units unknown) (unknown) (unknown) (no date) (unknown) (unknown) TECHNIQUE: 3 v iews of the knee were acquired. (units unknown) (unknown) (unknown) (no date) (unknown) (unknown) TECHNIQUE: (units unknown) (unknown) (unknown) (no date) (unknown) (unknown) Ultrasound Report (u nits unknown) (unknown) (unknown) (no date) (unknown) (unknown) XRay Report (units unknown) (unknown) (unknown) (no date) (unknown) (unknown) appropriate. (units unknown) (unknown) (unknown) (no date) (unknown) (unknown) compressible, and (u nits unknown) (unknown) (unknown) (no date) (unknown) (unknown) cyst. (units unknown) (unknown) (unknown) (no date) (unknown) (unknown) fossa. (units unknown) (unknown) (unknown) (no date) (unknown) (unknown) free of intraluminal thrombus. Color and pulse Doppler demonstrate normal (units unknown) (unknown) (unknown) (no date) (unknown) (unknown) intraluminal f low. There is normal augmentation response to distal compression (units unknown) (unknown) (unknown) (no date) (unknown) (unknown) maneuver. (units unknown) (unknown) (unknown) (no date) (unknown) (unknown) performed of (units unknown) (unknown) (unknown) (no date) (unknown) (unknown) phasic (units unknown) (unknown) (unknown) (no date) (unknown) (unknown) the lower extremity deep veins from the inguinal ligament to the popliteal (units unknown) (unknown) (unknown) (no date) (unknown) (unknown) x 2.6 x (units unknown) (unknown)
--- NOTE | 2022-10-01 23:53 | ED Physician Documentation ---
History of Present Illness - Stated complaint Stated Complaint: LOW BLOOD SUGAR - Chief complaint Chief Complaint: Abd Pain - History obtained from History obtained from: Patient, Family (son) - Additonal information Additional information: 71-year-old woman with history of breast cancer on chemotherapy (she started new immunotherapy 3 days ago in addition to new beta-dory), presents with an epis ode of weakness, lightheadedness, tunnel vision and nonbloody is nonbilious nausea and vomiting tonight. Patient states that she overexerted herself during the day today and then took 8 units of insulin and forced her self to eat despite not having an appetite and feeling nauseous. She then experienced the episode of dizziness and vomiting. She comes to the ED because she was concerned that her blood sugar would drop. PD PAST MEDICAL HISTORY - Past Medical History Cardiovascular: High cholesterol Respiratory: Other (lung mets) Neuro: Migraines Endocrine/Autoimmune: Type 1 diabetes [employer]: Breast cancer (2001. Bilateral mastectomy. Triple negative. CMF. Adjuvant therapy.) : None HEENT: Other (Allergic rhinitis, acne rosacea) Psych: Depression, Anxiety Musculoskeletal: Osteoarthritis, Osteoporosis, Chronic back pain Derm: Rosacea, Other (Dysplastic nevus, basal cell CA) - Past Surgical History Past Surgical History: Yes General: Colonoscopy /[employer]: Mastectomy HEENT: Tonsil/Adenoidectomy Derm: Skin cancer surgery - Present Medications Home Medications: Ambulatory Orders Medication Instructions Recorded Confirmed Alprazolam 0.25 mg PO QPM PRN 05/17/13 08/08/22 Ca Carbonate/Vitamin D3/Vit K 2 each PO BID 05/17/13 08/08/22 [Viactiv Soft Chew Tablet] Cetirizine [ZyrTEC] 10 mg PO BID 05/17/13 08/08/22 Ibuprofen 400 mg PO TID 05/17/13 08/08/22 Vitamin B Complex [B Complex] 1 each PO DAILY 05/17/13 08/08/22 Glucosam/Chondr-Msm6/Manganese 1 each PO DAILY 06/19/15 08/08/22 [Glucosamine-Chondroitin Sftgl] Magnesium 500 mg PO DAILY 06/19/15 08/08/22 Ondansetron Odt [Zofran Odt] 4 - 8 mg TL Q8H PRN 08/01/22 08/08/22 Prochlorperazine Maleate 10 mg PO Q6H PRN 08/01/22 08/08/22 [Compazine] Blood-Glucose Meter [Glucometer] 1 each SQ ACHS #1 each 08/06/22 08/08/22 Clobetasol 0.05% Oint [Temovate 1 applic TOP DAILY each 08/06/22 08/08/22 0.05% Oint] Insulin Glargine [Lantus Solostar] 5 - 15 unit SQ BID #1 ea 08/06/22 08/08/22 Insulin Lispro [Humalog Kwikpen 2 - 10 unit SUBQ ACHS #1 each 08/06/22 08/08/22 U-100] Lancet/Gluc Test Strip/[place] 1 each SQ ACHS #120 ea 08/06/22 08/08/22 [Tempo Refill Kit] Pen Needle, Diabetic [Embrace Pen 1 each SQ 5XD #100 ea 08/06/22 08/08/22 Needle] Potassium Chloride [Micro-K] 10 meq PO DAILYWM #30 cap 08/06/22 08/08/22 Triamcinolone 0.1% Cream [Kenalog 1 applic TOP BID each 08/06/22 08/08/22 0.1% Cream] Blood Sugar Diagnostic [Glucose 1 each SQ ACHS #100 strip 08/07/22 08/08/22 Test Strip] Calcium Carbonate [Calcium] 2 tab PO BID 08/08/22 08/08/22 Carboxymethylcellulose 1% Opht 1 - 2 drops EACHEYE PRN PRN 08/08/22 08/08/22 [Refresh 1% Ophth Drops] Cholecalciferol [Vitamin D3] 1 tab PO BID 08/08/22 08/08/22 Famotidine [Pepcid] 1 tab PO BID 08/08/22 08/08/22 Simethicone [Mylanta Gas Minis] 1 - 2 tab PO DAILY PRN 08/08/22 08/08/22 Triamcinolone Acetonide [Nasacort] 2 spray NS HS 08/08/22 08/08/22 Aspirin EC [Ecotrin] 81 mg PO DAILY tab 08/09/22 Ciprofloxacin [Cipro] 500 mg PO BID #28 tablet 08/09/22 diltiaZEM CD [Cardizem Cd] 120 mg PO DAILY #30 cap 08/09/22 - Allergies Allergies/Adverse Reactions: Allergies Allergy/AdvReac Type Severity Reaction Status Date / Time Cephalosporins Allergy Rash Verified 10/01/22 22:47 Iodinated Contrast Media Allergy Edema Verified 10/01/22 22:47 bandaids Allergy Itching Uncoded 08/08/22 10:39 - Social History Does the pt smoke?: No Smoking Status: Never smoker Does the pt drink ETOH?: No Does the pt have substance abuse?: No - Immunizations Immunizations are current?: Yes - POLST Patient has POLST: No POLST Status: Full Code PD ED PE NORMAL - Vitals Vital signs reviewed: Yes - General General: Alert and oriented X 3, No acute distress, Well developed/nourished - HEENT HEENT: Atraumatic, PERRL, EOMI - Neck Neck: Supple, no meningeal sign - Cardiac Cardiac: RRR - Respiratory Respiratory: No respiratory distress, Clear bilaterally - Abdomen Abdomen: Non tender, Non distended Results - Vitals Vitals: Vital Signs - 24 hr 10/01/22 22:38 Temperature 36.1 C L Heart Rate 82 Respiratory 18 Rate Blood Pressure 141/54 H O2 Saturation 100 Oxygen O2 Source Room air - Labs Labs: Laboratory Tests 10/01/22 22:54 POC Whole Bld Glucose 77 PD Medical Decision Making - ED course ED course: 71yF presented with an episode of lightheadedness, nausea and vomiting. Patient is on new chemo drug and has been having similar episodes but was worried about blood glucose after taking 8u insulin. Her cutaneous blood glucose monitor has been reading in the 80s during [id number] monitoring in the ED. Vital signs and physical exam unremarkable. Discussed option of running bloodwork but she just had it done a week ago and shared decision was made to hold off. Provided whole wheat turkey sandwich and recommended she follow up with her PCP in the morning as well as palliative care. Return precautions given. Departure - Departure Disposition: 01 Home, Self Care Clinical Impression: Nausea and vomiting, Dizziness Condition: Stable Instructions: Chemo Follow-Up: Farrah Menjivar ARNP [Provider Admit Priv/Credential] - Comments: You were seen in the emergency department for medical evaluation. Your vital signs and exam uncovered no emergent conditions. Your sugar is held steady in the 80s here in the emergency department. Please follow-up with your primary care provider in the morning. He also should Consider seeking out a mental health counselor and follow-up with palliative care (referral enclosed for Farrah Menjivar). Return to the emergency department if you have other concerns.
== END 2022-10-02 00:31 | disposition home or self-care (01) ==
LOC: ED 22:32
DX: R11.2 Nausea with vomiting, unspecified (principal); R42 Dizziness and giddiness; C50.919 Malignant neoplasm of unspecified site of unspecified female breast; Z79.899 Other long term (current) drug therapy
CPT/HCPCS: 80053; 83690; 85025; 99283

== ENCOUNTER 2023-04-16 10:01 | Outpatient (CLI) | payer MEDICARE, OTHER ==
[2023-04-16 12:36] LABS: CHOL/HDL RATIO 2.6 (<4.4); CHOLESTEROL 196 mg/dL; HDL CHOLESTEROL 76 mg/dL; LDL CHOLESTEROL,CALCULATED 110 mg/dL; LDL/HDL RATIO 1.4 (<4.4); TRIGLYCERIDES 49 mg/dL (48-352); VLDL CHOLESTEROL 10 mg/dL
== END 2023-04-16 10:02 | disposition home or self-care (01) ==
LOC: LAB.N 10:01
PROVIDERS: ATTEND Nurse Practitioner
DX: E78.5 Hyperlipidemia, unspecified (principal)
CPT/HCPCS: 36415; 80061; 83721

== ENCOUNTER 2023-06-01 12:52 | Outpatient (CLI) | payer MEDICARE, OTHER ==
--- NOTE | 2023-06-01 16:11 | DEXA Report ---
PROCEDURE: Dexa Spine and/or Hip INDICATIONS: POST MENOPAUSAL TECHNIQUE: Dual energy x-ray absorptiometry (DXA) was performed on a [employer] System. Regions measur ed are the AP Spine, femoral neck, and if needed forearm. COMPARISON: 06/12/2020 FINDINGS: Lumbar Spine: Bone Mineral Density: 1.107 g/cm/cm,T score: -0.5. Since the most recent prior study, there has been a statistically significant increase in bone mineral density by 11.0 percent. Left Femoral Neck: Bone Mineral Density: 0.714 g/cm/cm, T score: -2.3. Left Hip: Bone Mineral Density: 0.726 g/cm/cm,T score: -2.2. Since the most recent prior study, there has been a statistically significant increase in bone mineral density by 5.7 percent. (T score greater or equal to -1.0: NORMAL) (T score from -1.1 to -2.4: OSTEOPENIA) (T score less than or equal to -2.5 to: OSTEOPOROSIS) Impression: By WHO criteria, this patient has low bone density (osteopenia). Interval statistical increase in bone mineral density of the lumbar spine. Interval statistical decre ase in bone mineral density of the hip. Patients with diagnosis of osteoporosis or osteopenia should have regular bone mineral density assess ment. For those eligible for Medicare, routine testing is allowed once every 2 years. Testing frequ ency can be increased for patients who have rapidly progressing disease or for those who are receivin g medical therapy to restore bone mass. Reviewed by: Elliott Yousif MD on 06/01/2023 4:10 PM PST Approved by: Elliott Yousif MD on 06/01/2023 4:10 PM PST Station ID: [id number]
== END 2023-06-01 12:53 | disposition home or self-care (01) ==
LOC: DI 12:52
PROVIDERS: ATTEND Nurse Practitioner
DX: Z78.0 Asymptomatic menopausal state (principal); M85.89 Other specified disorders of bone density and structure, multiple sites

== ENCOUNTER → 2023-07-06 | Outpatient (CLI) | payer MEDICARE, OTHER | LOC: PC 08:00 | PROVIDERS: ATTEND Nurse Practitioner Gerontology | DX: Z51.5 Encounter for palliative care (principal); Z73.3 Stress, not elsewhere classified; F41.9 Anxiety disorder, unspecified; C78.02 Secondary malignant neoplasm of left lung; C78.01 Secondary malignant neoplasm of right lung; C77.9 Secondary and unspecified malignant neoplasm of lymph node, unspecified; Z85.3 Personal history of malignant neoplasm of breast; Z79.899 Other long term (current) drug therapy; Z71.89 Other specified counseling; Z63.8 Other specified problems related to primary support group | CPT/HCPCS: 99350 ==

== ENCOUNTER 2023-11-03 08:00 | Outpatient (CLI) | payer MEDICARE, OTHER | END 2023-11-03 23:59 | disposition home or self-care (01) | LOC: PC 08:00 | PROVIDERS: ATTEND Nurse Practitioner Gerontology | DX: Z51.5 Encounter for palliative care (principal); F41.9 Anxiety disorder, unspecified; E09.3 Drug or chemical induced diabetes mellitus with ophthalmic complications; H26.9 Unspecified cataract; T45.1X5A Adverse effect of antineoplastic and immunosuppressive drugs, initial encounter; Z79.4 Long term (current) use of insulin; C50.911 Malignant neoplasm of unspecified site of right female breast; C77.8 Secondary and unspecified malignant neoplasm of lymph nodes of multiple regions; C78.02 Secondary malignant neoplasm of left lung; C78.01 Secondary malignant neoplasm of right lung; Z17.1 Estrogen receptor negative status [ER-]; Z90.13 Acquired absence of bilateral breasts and nipples; Z79.899 Other long term (current) drug therapy | CPT/HCPCS: 99350 ==

== ENCOUNTER 2025-03-01 15:48 | Observation (INO) ==
--- NOTE | 2025-03-01 16:15 | ED Physician Documentation ---
History of Present Illness Stated complaint Stated Complaint: NOSE BLEED Chief complaint Chief Complaint: General History obtained from History obtained from: Patient History of Present Illness Timing: Prior to arrival Additonal information Additional information: Patient 74-year-old female presenting to the emergency department with a nosebleed that started yesterday and she was at the walk-in clinic they started her on Afrin that she had control of her nosebleed by that time. Patient is on apixaban for history of atrial fibrillation and is on palliative care for history of metastatic lung cancer. She notes nosebleed started again this morning when she went to take a shower and had bleeding out of bilateral naris. She denies any dizziness lightheadedness or shortness of breath. She has been having trouble stopping it and does not feel that Afrin is working to stop the bleeding Meds/Allgy Home Medications Ambulatory Orders Medication Instructions Recorded Confirmed magnesium 250 mg tablet 500 mg PO DAILY 06/19/15 acetone (urine) test (Ketostix 04/13/24 03/01/25 strips) apixaban 5 mg tablet (Eliquis) 5 mg PO BID 04/13/24 biotin 2,500 mcg capsule 2,500 mcg PO QDAY 04/13/24 1 blood sugar diagnostic (OneTouch 04/13/24 03/01/25 Verio test strips) blood-glucose meter (OneTouch 04/13/24 03/01/25 Verio Flex Meter) blood-glucose,director public,cont 04/13/24 03/01/25 (FreeStyle Ember 3 [place]) lancets 30 gauge 04/13/24 03/01/25 metoprolol succinate 50 mg 50 mg PO DAILY 04/13/24 tablet,extended release 24 hr propylhexedrine (Benzedrex nasal 2 inh intranasal Q4H 04/13/24 03/01/25 inhaler) triamcinolone acetonide 55 mcg 2 spray intranasal QDAY 04/13/24 03/01/25 nasal spray aerosol (Nasacort) vitamin B12 500 mcg-folic acid 400 1 tab PO QDAY 04/1303/01/25 mcg tablet atorvastatin 10 mg tablet 10 mg PO QDAY #90 tabs 05/2503/01/25 epinephrine 0.3 mg/0.3 mL 0.3 mg (0.3 mL) IM Q10M PRN 05/25/24 03/01/25 injection, auto-injector (EpiPen) Anaphylactic shrimp allergy #1 ea simethicone 80 mg chewable tablet 80 mg PO QDAY PRN ab dominal 06/17/24 03/01/25 (Gas Relief (simethicone)) distention #60 tabs acetaminophen 500 mg capsule 500 mg PO Q6H PRN pain 03/01/25 carboxymethylcellulose sodium 0.5 1 drp ophthalmic (ey e) .prn 06/23/24 03/01/25 % eye drops in a dropperette (Lubricant Eye Drops) glucagon 3 mg/actuation nasal 3 mg intranasal ONCE 03/01/25 spray (Baqsimi) glutamine 500 mg capsule 10 mg PO QDAY 06/23/2403/01 (L-Glutamine) guaifenesin 400 mg tablet 400 mg PO .PRN 06/23/2402/02 ibuprofen 200 mg capsule 200 mg PO Q6H PRN pain 06/2303/01/25 calcium carbonate 600 mg PO QDAY 06/29/2402/02 famotidine 20 mg tablet 20 mg PO BID 06/29/24 ondansetron 8 mg disintegrating 8 mg PO BID-TID 03/01/25 tablet Held on 02/19/25. Instructions: Per Patient prochlorperazine maleate 10 mg 10 mg PO TID PRN nausea 07/07/24 03/01/25 tablet pyridoxal-5 phosphate 100 mg/gram 100 mg PO .QD 03/01/25 oral powder triamcinolone acetonide 0.1 % 1 applic topical .PRN #3 0 grams 07/07/24 03/01/25 topical cream cetirizine 10 mg tablet 10 mg PO QDAY 08/09/2403/01 insulin lispro 100 unit/mL 15 - 20 unit subcut TID 03/01/25 subcutaneous pen (Humalog KwikPen (U-100) Insulin) insulin degludec 100 unit/mL (3 12 unit subcut QDAY 03/01/25 mL) subcutaneous pen (Tresiba FlexTouch U-100 insulin) mirtazapine 15 mg tablet 15 mg PO .qhs #90 tabs 02/1903/01/25 oxymetazoline 0.05 % nasal mist 2 spray intranasal Q12 H PRN nasal 02/28/25 03/01/25 (Afrin (oxymetazoline)) congestion 3 days #15 mL Allergies Allergies Allergy/AdvReac Type Severity Reaction Status Date / Time cefdinir (From Omnicef) Allergy Severe Rash Verified 03/01/25 15:55 escitalopram (From Lexapro) Allergy Severe Dizziness Verified 03/01/25 15:55 naproxen Allergy Severe tinnitus Verified 03/01/25 15:55 Cephalosporins Allergy Rash Verified 03/01/25 15:55 shrimp AdvReac Severe Edema Verified 03/01/25 15:55 bandaids Allergy Itching Uncoded 03/01/25 15:55 tape AdvReac Unknown Unknown Uncoded 03/01/25 15:55 PFSH Active Problems All Active Problems (Updated 03/01/25 @ 19:37 by Saranya Day PA-C) Epistaxis (Acute) Leukocytosis (Acute) Epistaxis (Acute) Weight loss (Acute) Postmenopausal (Acute) Dysgeusia (Acute) Counseling regarding advanced care planning and goals of care (Acute) Anxiety (Acute) Type 1 diabetes mellitus on insulin therapy (Chronic) Chemotherapy induced neutropenia (Acute) Hemianopia, homonymous, right (Acute) Chemotherapy-induced fatigue (Acute) Low back pain (Chronic) Osteopenia of left femoral neck (Chronic) Healthcare maintenance (Chronic) Encounter for antineoplastic chemotherapy (Chronic) 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) Vision changes (Acute) Allergic rhinitis (Chronic) Osteoporosis (Chronic) Secondary diabetes mellitus with cataract (Chronic) Paroxysmal atrial fibrillation (Chronic) Other fatigue (Chronic) Hyperlipidemia, unspecified (Chronic) Atherosclerosis of aorta (Chronic) Dysplastic nevus syndrome (Chronic) Attention and concentration deficit (Chronic) Allergies (Chronic) Anemia (Chronic) Sweet syndrome (Chronic) Depression with anxiety (Chronic) Medical History Medical History Acne rosacea Allergy to shrimp Anaphylatic, requiring epi pen Classic migraine with aura History of basal cell carcinoma History of breast cancer Lumbago with sciatica, left side Surgical History Surgical History History of craniotomy Left occipital craniotomy for STR, Dr. Trino DE JESUS 04/22/2024 Social History Social History Smoking Status: Never smoker Number of Years Smoked: 0 Second hand tobacco smoke exposure: No Do you dip or chew tobacco?: No Do you vape?: No Initiate information on smoking cessation: No Living arrangement: At home Marital Status: Living Condition: With family Support Person: Yes Living Situation Details: son Brad lives with her Has a Durable Power of Dressing Machine Operator for Health Care?: Yes Name / Relationship: Ash Espinoza/derrell [phone] DPOA on file?: Yes Has Health Care Directive?: Yes Health Care Directive on file?: Yes Physical Activity: None Level: Independent Do you feel safe in your home environment?: Yes History of physical, verbal, emotional, or financial abuse?: No ETOH Use: None Substance Use: denies use 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 Patient has no posterior nasal bleeding no posterior oropharyngeal bleed appreciated dry macerated nasal mucous membranes Eyes PERRL, EOMs intact bilaterally and conjunctivae normal Neck/C-Spine visual inspection normal Lymph no lymphadenopathy noted Chest inspection of chest normal Respiratory breath sounds equal bilaterally, normal respiratory effort and clear to auscultation bilaterally Cardiovascular normal heart rate noted, regular rhythm noted, no gallop and no rub Skin skin color normal Results Vitals Vitals: Vital Signs - 24 hr 03/01/25 15:52 03/01/25 17:57 03/01/25 19:46 Temperature 36.9 C Temperature Source Temporal Artery Scan Pulse Rate 80 73 72 Respiratory Rate 20 16 17 Blood Pressure 134/71 H 145/85 H 151/85 H O2 Saturation 96 94 99 O2 Source Room air Room air Room air Pain Intensity 2 2 3 Oxygen O2 Source Room air Labs Labs: Laboratory Tests 03/01/25 03/01/25 03/01/25 18:13 18:13 18:13 WBC 23.3 H RBC 2.26 L Hgb 7.8 L Hct 24.9 L MCV 110.2 H MCH 34.5 H MCHC 31.3 L RDW 14.6 Plt Count 87 L MPV 9.6 Neut # (Auto) Not Reportable Lymph # (Auto) Not Reportable [place] # (Auto) Not Reportable Eos # (Auto) Not Reportable Baso # (Auto) Not Reportable Absolute Nucleated RBC Not Reportable Total Counted 100 Band Neuts % (Manual) 2 Abnorm Lymph % (Manual) 0 Nucleated RBC % Not Reportable Neutrophils # (Manual) 20.7 H Lymphocytes # (Manual) 1.4 L Monocytes # (Manual) 0.9 Eosinophils # (Manual) 0.0 Basophils # (Manual) 0.2 H Differential Comment MANUAL DIFFERENTIAL WBC Morphology TOXIC GRANULATION IMMATURE MONOS Platelet Estimate NORMAL (130-450,000) Platelet Morphology NORMAL APPEARANCE RBC Morph Micro Appear 1+ ANISOCYTOSIS 1+ MACROCYTOSIS PT INR Sodium Potassium Chloride Carbon Dioxide Anion Gap BUN Creatinine Estimated GFR (MDRD) Glucose Calcium Total Bilirubin AST ALT Alkaline Phosphatase Total Protein Albumin Globulin Albumin/Globulin Ratio Blood Type Antibody Screen Crossmatch IS Only 03/01/25 03/01/25 03/01/25 18:13 18:13 19:26 WBC RBC Hgb Hct MCV MCH MCHC RDW Plt Count MPV Neut # (Auto) Lymph # (Auto) [place] # (Auto) Eos # (Auto) Baso # (Auto) Absolute Nucleated RBC Total Counted Band Neuts % (Manual) Abnorm Lymph % (Manual) Nucleated RBC % Neutrophils # (Manual) Lymphocytes # (Manual) Monocytes # (Manual) Eosinophils # (Manual) Basophils # (Manual) Differential Comment WBC Morphology Platelet Estimate Platelet Morphology RBC Morph Micro Appear 1+ MICROCYTOSIS 1+ POLYCHROMASIA PT 16.5 H INR 1.5 H Sodium 136 Potassium 4.3 Chloride 106 Carbon Dioxide 26 Anion Gap 4.0 L BUN 32 H Creatinine 0.6 Estimated GFR (MDRD) 98 Glucose 316 H Calcium 8.5 Total Bilirubin 0.3 AST 13 ALT 20 Alkaline Phosphatase 135 H Total Protein 7.0 Albumin 3.4 Globulin 3.6 Albumin/Globulin Ratio 0.9 L Blood Type O NEGATIVE Antibody Screen NEGATIVE Crossmatch IS Only See Detail PD Medical Decision Making ED course Complexity details: reviewed old records and reviewed results ED course: Patient 74-year-old female presenting to the emergency department with bilateral naris bleeding that started this morning when she went to take a shower she is seen at walk-in clinic yesterday given Afrin as she has tried this a few times with no significant relief she is on apixaban for history of A-fib. No dizziness or lightheadedness no shortness of breath associate with her symptoms. Physical exam shows bilateral naris bleeding But on reevaluation specifically left side naris bleeding. Patient had Afrin and TXA soaked gauze placed to left naris but continued to have bleeding while here in the ED she had a syncopal episode and code alert was called but patient recovered quickly port access was obtained and fluids were given here in the ED with basic labs obtained given patient has baseline anemia secondary to her history of cancer with right-sided breast cancer and mets to the brain. Patient's CBC is remarkable for leukocytosis of 23.3 with a hemoglobin of 7.8 and platelets of 87 here in the ED she recently received her chemotherapy on the and mild anemia and low platelets consistent with her recent labs after chemotherapy but no history of leukocytosis she has no fevers but given her syncopal episode worsening hemoglobin from 10.2-7.8 with active bleeding here in the ED IV fluids were ordered and blood transfused that showed and was consented here in the ED. I did reach out to oncology team Vera Choi nurse practitioner who notes concern for elevated leukocytosis with patient's recent chemotherapy she recommends chest x-ray urine analysis and blood cultures. Discussed with on-call hospitalist DONI Corona who is agreeable with admission at this time. Patient will require ENT eval after hospital admission given concerns for left nares bleeding that was treated with Rhino Rocket 5.5 cm to the left naris. She had complete resolution of bleeding here in the ED. Antibiotics were held until blood cultures fully obtained but most likely would benefit from being on Augmentin for Rhino Rocket placement. Discharge Plan Discharge Patient Disposition: 66 [facility] DC/Xfer Condition: Good Clinical Impression: Anemia, Leukocytosis, Epistaxis Prescriptions: No Action cetirizine 10 mg tablet 10 mg PO QDAY Rx Instructions: As directed by Dr. Gianfranco Chapa MD for allergic rhinitis magnesium 250 MG tablet 500 mg PO DAILY calcium carbonate 600 mg calcium (1,500 mg) tablet 600 mg PO QDAY Rx Instructions: As directed by Dr. Juan Carrera MD for prevention of osteoporosis metoprolol succinate 50 mg tablet extended release 24 hr 50 mg PO DAILY Rx Instructions: Take 1 tablet by mouth daily for heart arrhythmia Eliquis 5 mg tablet 5 mg PO BID Rx Instructions: Take 1 tablet by mouth daily to reduce potential for blood clots with A-Fib. (DME) Ketostix Strip See Rx Instructions .Route Rx Instructions: As directed (DME) [facility] [place] [facility] See [facility] Inst[facility] .Route Rx Instructions: As directed (DME) blood-glucose meter [OneTouch Verio Flex meter] Misc See Rx Instructions .Route Rx Instructions: As directed (DME) OneTouch Verio test strips Strip See Rx Instructions .Route Rx Instructions: As directed (DME) lancets 30 gauge misc See Rx Instructions .Route Rx Instructions: As directed vitamin Z35-kofwu acid 500-400 mcg tablet 1 tab PO QDAY Rx Instructions: administer with a meal as directed biotin 2,500 mcg capsule 2,500 mcg PO QDAY Rx Instructions: As directed triamcinolone acetonide [Nasacort] 55 mcg aerosol,spray 2 spray intranasal QDAY Rx Instructions: administer 2 sprays into each nostril daily as directed by Dr. Gianfranco Chapa Benzedrex Inhaler 2 inh intranasal Q4H Rx Instructions: As directed. Use for nasal congestion as needed. insulin degludec [Tresiba FlexTouch U-100] 100 unit/mL (3 mL) insulin pen 12 unit subcut QDAY Rx Instructions: Inject 14 units subcutaneously daily. May adjust based on CGM readings. atorvastatin 10 mg tablet 10 mg PO QDAY Qty: 90 4RF Rx Instructions: Take 1 tablet nightly to reduce cholesterol, risk of strike and CVA epinephrine [EpiPen] 0.3 mg/0.3 mL auto-injector 0.3 mg IM Q10M PRN (Reason: Anaphylactic shrimp allergy) Qty: 1 4RF Rx Instructions: Follow pack instructions simethicone [Gas Relief (simethicone)] 80 mg tablet,chewable 80 mg PO QDAY PRN (Reason: abdominal distention) Qty: 60 0RF Patient Comments: 125-250 mg insulin lispro [Humalog KwikPen Insulin] 100 unit/mL insulin pen 15 - 20 unit subcut TID Rx Instructions: Sliding scale as directed famotidine 20 mg tablet 20 mg PO BID ondansetron 8 mg tablet,disintegrating 8 mg PO BID-TID prochlorperazine maleate 10 mg tablet 10 mg PO TID PRN (Reason: nausea) pyridoxal-5 phosphate 100 mg/gram powder 100 mg PO .QD triamcinolone acetonide 0.1 % cream 1 applic topical .PRN Qty: 30 0RF mirtazapine 15 mg tablet 15 mg PO .qhs Qty: 90 1RF Afrin (oxymetazoline) 0.05 % mist 2 spray intranasal Q12H PRN (Reason: nasal congestion) 3 Days Qty: 15 0RF L-Glutamine 500 mg capsule 10 mg PO QDAY acetaminophen 500 mg capsule 500 mg PO Q6H PRN (Reason: pain) Patient Comments: 500 OR 650 MG ibuprofen 200 mg capsule 200 mg PO Q6H PRN (Reason: pain) Patient Comments: PER PATIENT/OCCASIONAL USE guaifenesin 400 mg tablet 400 mg PO .PRN carboxymethylcellulose sodium [Lubricant Eye Drops] 0.5 % dropperette 1 drp ophthalmic (eye) .prn Baqsimi 3 mg/actuation spray,non-aerosol 3 mg intranasal ONCE Print Language: Setswana
--- OUTSIDE RECORDS SUMMARY | 2025-03-01 16:17 | EXTERNAL MEDICAL SUMMARY RPT | Continuity of Care Document ---
Author Organization [facility] Address [address] [place], [place] [address] [address] [place] [id number] Phone Problems date description facility 2024-12-07 08:17 Malignant neoplasm o f unspecified site of unspecified female breast [facility] 2024-12-07 08:17 Secondary malignant neoplasm of unspecified lung [facility] 2024-12-07 08:17 Secondary malignant neoplasm of right lung [facility] 2024-12-07 08:17 Anemia, unspecified [facility] 2024-12-07 08:17 Type 1 diabetes mellitus with h yperglycemia [facility] 2024-12-07 08:18 Malignant neoplasm o f unspecified site of unspecified female breast [facility] 2024-12-07 08:18 Secondary malignant neoplasm of unspecified lung [facility] 2024-12-07 08:18 Secondary malignant neoplasm of right lung [facility] 2024-12-07 08:18 Anemia, unspecified [facility] 2024-12-07 08:18 Type 1 diabetes mellitus with h yperglycemia [facility] 2024-12-07 09:11 Malignant neoplasm o f unspecified site of unspecified female breast [facility] 2024-12-07 09:11 Secondary malignant neoplasm of unspecified lung [facility] 2024-12-07 09:11 Secondary malignant neoplasm of right lung [facility] 2024-12-07 09:11 Anemia, unspecified [facility] 2024-12-07 09:11 Type 1 diabetes mellitus with h yperglycemia [facility] 2024-12-07 09:27 Malignant neoplasm o f unspecified site of unspecified female breast [facility] 2024-12-07 09:27 Secondary malignant neoplasm of unspecified lung [facility] 2024-12-07 09:27 Secondary malignant neoplasm of right lung [facility] 2024-12-07 09:27 Anemia, unspecified [facility] 2024-12-07 09:27 Type 1 diabetes mellitus with h yperglycemia [facility] 2024-12-07 10:18 Malignant neoplasm o f unspecified site of unspecified female breast [facility] 2024-12-07 10:18 Secondary malignant neoplasm of unspecified lung [facility] 2024-12-07 10:18 Secondary malignant neoplasm of right lung [facility] 2024-12-07 10:18 Anemia, unspecified [facility] 2024-12-07 10:18 Type 1 diabetes mellitus with h yperglycemia [facility] 2024-12-07 10:37 Malignant neoplasm o f unspecified site of unspecified female breast [facility] 2024-12-07 10:37 Secondary malignant neoplasm of unspecified lung [facility] 2024-12-07 10:37 Secondary malignant neoplasm of right lung [facility] 2024-12-07 10:37 Anemia, unspecified [facility] 2024-12-07 10:37 Type 1 diabetes mellitus with h yperglycemia [facility] 2024-12-07 10:41 Malignant neoplasm o f unspecified site of unspecified female breast [facility] 2024-12-07 10:41 Secondary malignant neoplasm of unspecified lung [facility] 2024-12-07 10:41 Secondary malignant neoplasm of right lung [facility] 2024-12-07 10:41 Anemia, unspecified [facility] 2024-12-07 10:41 Type 1 diabetes mellitus with h yperglycemia [facility] 2024-12-08 09:43 Malignant neoplasm o f unspecified site of unspecified female breast [facility] 2024-12-08 09:43 Secondary malignant neoplasm of unspecified lung [facility] 2024-12-08 09:43 Secondary malignant neoplasm of right lung [facility] 2024-12-08 09:43 Anemia, unspecified [facility] 2024-12-08 09:43 Type 1 diabetes mellitus with h yperglycemia [facility] 2024-12-21 08:11 Malignant neoplasm o f unspecified site of unspecified female breast [facility] 2024-12-21 08:11 Secondary malignant neoplasm of unspecified lung [facility] 2024-12-21 08:11 Secondary malignant neoplasm of right lung [facility] 2024-12-21 08:11 Anemia, unspecified [facility] 2024-12-21 08:11 Type 1 diabetes mellitus with h yperglycemia [facility] 2024-12-21 08:51 Malignant neoplasm o f unspecified site of unspecified female breast [facility] 2024-12-21 08:51 Secondary malignant neoplasm of unspecified lung [facility] 2024-12-21 08:51 Secondary malignant neoplasm of right lung [facility] 2024-12-21 08:51 Anemia, unspecified [facility] 2024-12-21 08:51 Type 1 diabetes mellitus with h yperglycemia [facility] 2024-12-21 09:36 Malignant neoplasm o f unspecified site of unspecified female breast [facility] 2024-12-21 09:36 Secondary malignant neoplasm of unspecified lung [facility] 2024-12-21 09:36 Secondary malignant neoplasm of right lung [facility] 2024-12-21 09:36 Anemia, unspecified [facility] 2024-12-21 09:36 Type 1 diabetes mellitus with h yperglycemia [facility] 2024-12-21 09:37 Malignant neoplasm o f unspecified site of unspecified female breast [facility] 2024-12-21 09:37 Secondary malignant neoplasm of unspecified lung [facility] 2024-12-21 09:37 Secondary malignant neoplasm of right lung [facility] 2024-12-21 09:37 Anemia, unspecified [facility] 2024-12-21 09:37 Type 1 diabetes mellitus with h yperglycemia [facility] 2024-12-21 09:38 Malignant neoplasm o f unspecified site of unspecified female breast [facility] 2024-12-21 09:38 Secondary malignant neoplasm of unspecified lung [facility] 2024-12-21 09:38 Secondary malignant neoplasm of right lung [facility] 2024-12-21 09:38 Anemia, unspecified [facility] 2024-12-21 09:38 Type 1 diabetes mellitus with h yperglycemia [facility] 2024-12-21 13:02 Malignant neoplasm o f unspecified site of unspecified female breast [facility] 2024-12-21 13:02 Secondary malignant neoplasm of unspecified lung [facility] 2024-12-22 00:03 Malignant neoplasm o f unspecified site of unspecified female breast [facility] 2024-12-22 00:03 Secondary malignant neoplasm of unspecified lung [facility] 2024-12-22 10:29 Malignant neoplasm o f unspecified site of unspecified female breast [facility] 2024-12-22 10:29 Secondary malignant neoplasm of unspecified lung [facility] 2024-12-22 10:29 Secondary malignant neoplasm of right lung [facility] 2024-12-22 10:29 Anemia, unspecified [facility] 2024-12-22 10:29 Type 1 diabetes mellitus with h yperglycemia [facility] 2025-01-04 08:24 Malignant neoplasm o f unspecified site of unspecified female breast [facility] 2025-01-04 08:24 Secondary malignant neoplasm of unspecified lung [facility] 2025-01-04 08:24 Secondary malignant neoplasm of right lung [facility] 2025-01-04 08:24 Anemia, unspecified [facility] 2025-01-04 08:24 Type 1 diabetes mellitus with h yperglycemia [facility] 2025-01-04 08:42 Malignant neoplasm o f unspecified site of unspecified female breast [facility] 2025-01-04 08:42 Secondary malignant neoplasm of unspecified lung [facility] 2025-01-04 08:42 Secondary malignant neoplasm of right lung [facility] 2025-01-04 08:42 Anemia, unspecified [facility] 2025-01-04 08:42 Type 1 diabetes mellitus with h yperglycemia [facility] 2025-01-04 09:43 Malignant neoplasm o f unspecified site of unspecified female breast [facility] 2025-01-04 09:43 Secondary malignant neoplasm of unspecified lung [facility] 2025-01-04 09:43 Secondary malignant neoplasm of right lung [facility] 2025-01-04 09:43 Anemia, unspecified [facility] 2025-01-04 09:43 Type 1 diabetes mellitus with h yperglycemia [facility] 2025-01-04 09:45 Malignant neoplasm o f unspecified site of unspecified female breast [facility] 2025-01-04 09:45 Secondary malignant neoplasm of unspecified lung [facility] 2025-01-04 09:45 Secondary malignant neoplasm of right lung [facility] 2025-01-04 09:45 Anemia, unspecified [facility] 2025-01-04 09:45 Type 1 diabetes mellitus with h yperglycemia [facility] 2025-01-04 09:46 Malignant neoplasm o f unspecified site of unspecified female breast [facility] 2025-01-04 09:46 Secondary malignant neoplasm of unspecified lung [facility] 2025-01-04 09:46 Secondary malignant neoplasm of right lung [facility] 2025-01-04 09:46 Anemia, unspecified [facility] 2025-01-04 09:46 Type 1 diabetes mellitus with h yperglycemia [facility] 2025-01-04 09:47 Malignant neoplasm o f unspecified site of unspecified female breast [facility] 2025-01-04 09:47 Secondary malignant neoplasm of unspecified lung [facility] 2025-01-04 09:47 Secondary malignant neoplasm of right lung [facility] 2025-01-04 09:47 Anemia, unspecified [facility] 2025-01-04 09:47 Type 1 diabetes mellitus with h yperglycemia [facility] 2025-01-04 10:38 Malignant neoplasm o f unspecified site of unspecified female breast [facility] 2025-01-04 10:38 Secondary malignant neoplasm of unspecified lung [facility] 2025-01-04 10:38 Secondary malignant neoplasm of right lung [facility] 2025-01-04 10:38 Anemia, unspecified [facility] 2025-01-04 10:38 Type 1 diabetes mellitus with h yperglycemia [facility] 2025-01-05 13:25 Malignant neoplasm o f unspecified site of unspecified female breast [facility] 2025-01-05 13:25 Secondary malignant neoplasm of unspecified lung [facility] 2025-01-05 13:25 Secondary malignant neoplasm of right lung [facility] 2025-01-05 13:25 Anemia, unspecified [facility] 2025-01-05 13:25 Type 1 diabetes mellitus with h yperglycemia [facility] 2025-01-18 08:22 Malignant neoplasm o f unspecified site of unspecified female breast [facility] 2025-01-18 08:22 Secondary malignant neoplasm of unspecified lung [facility] 2025-01-18 08:22 Secondary malignant neoplasm of right lung [facility] 2025-01-18 08:22 Anemia, unspecified [facility] 2025-01-18 08:22 Type 1 diabetes mellitus with h yperglycemia [facility] 2025-01-18 08:24 Malignant neoplasm o f unspecified site of unspecified female breast [facility] 2025-01-18 08:24 Secondary malignant neoplasm of unspecified lung [facility] 2025-01-18 08:24 Secondary malignant neoplasm of right lung [facility] 2025-01-18 08:24 Anemia, unspecified [facility] 2025-01-18 08:24 Type 1 diabetes mellitus with h yperglycemia [facility] 2025-01-18 09:54 Malignant neoplasm o f unspecified site of unspecified female breast [facility] 2025-01-18 09:54 Secondary malignant neoplasm of unspecified lung [facility] 2025-01-18 09:54 Secondary malignant neoplasm of right lung [facility] 2025-01-18 09:54 Anemia, unspecified [facility] 2025-01-18 09:54 Type 1 diabetes mellitus with h yperglycemia [facility] 2025-01-18 09:56 Malignant neoplasm o f unspecified site of unspecified female breast [facility] 2025-01-18 09:56 Secondary malignant neoplasm of unspecified lung [facility] 2025-01-18 09:56 Secondary malignant neoplasm of right lung [facility] 2025-01-18 09:56 Anemia, unspecified [facility] 2025-01-18 09:56 Type 1 diabetes mellitus with h yperglycemia [facility] 2025-01-18 09:57 Malignant neoplasm o f unspecified site of unspecified female breast [facility] 2025-01-18 09:57 Secondary malignant neoplasm of unspecified lung [facility] 2025-01-18 09:57 Secondary malignant neoplasm of right lung [facility] 2025-01-18 09:57 Anemia, unspecified [facility] 2025-01-18 09:57 Type 1 diabetes mellitus with h yperglycemia [facility] 2025-01-19 13:31 Malignant neoplasm o f unspecified site of unspecified female breast [facility] 2025-01-19 13:31 Secondary malignant neoplasm of unspecified lung [facility] 2025-01-19 13:31 Secondary malignant neoplasm of right lung [facility] 2025-01-19 13:31 Anemia, unspecified [facility] 2025-01-19 13:31 Type 1 diabetes mellitus with h yperglycemia [facility] 2025-02-01 08:24 Malignant neoplasm o f unspecified site of unspecified female breast [facility] 2025-02-01 08:24 Secondary malignant neoplasm of unspecified lung [facility] 2025-02-01 08:24 Secondary malignant neoplasm of right lung [facility] 2025-02-01 08:24 Anemia, unspecified [facility] 2025-02-01 08:24 Type 1 diabetes mellitus with h yperglycemia [facility] 2025-02-01 08:25 Malignant neoplasm o f unspecified site of unspecified female breast [facility] 2025-02-01 08:25 Secondary malignant neoplasm of unspecified lung [facility] 2025-02-01 08:25 Secondary malignant neoplasm of right lung [facility] 2025-02-01 08:25 Anemia, unspecified [facility] 2025-02-01 08:25 Type 1 diabetes mellitus with h yperglycemia [facility] 2025-02-01 08:26 Malignant neoplasm o f unspecified site of unspecified female breast [facility] 2025-02-01 08:26 Secondary malignant neoplasm of unspecified lung [facility] 2025-02-01 08:26 Secondary malignant neoplasm of right lung [facility] 2025-02-01 08:26 Anemia, unspecified [facility] 2025-02-01 08:26 Type 1 diabetes mellitus with h yperglycemia [facility] 2025-02-01 09:24 Malignant neoplasm o f unspecified site of unspecified female breast [facility] 2025-02-01 09:24 Secondary malignant neoplasm of unspecified lung [facility] 2025-02-01 09:24 Secondary malignant neoplasm of right lung [facility] 2025-02-01 09:24 Anemia, unspecified [facility] 2025-02-01 09:24 Type 1 diabetes mellitus with h yperglycemia [facility] 2025-02-01 10:34 Malignant neoplasm o f unspecified site of unspecified female breast [facility] 2025-02-01 10:34 Secondary malignant neoplasm of unspecified lung [facility] 2025-02-01 10:34 Secondary malignant neoplasm of right lung [facility] 2025-02-01 10:34 Anemia, unspecified [facility] 2025-02-01 10:34 Type 1 diabetes mellitus with h yperglycemia [facility] 2025-02-01 10:35 Malignant neoplasm o f unspecified site of unspecified female breast [facility] 2025-02-01 10:35 Secondary malignant neoplasm of unspecified lung [facility] 2025-02-01 10:35 Secondary malignant neoplasm of right lung [facility] 2025-02-01 10:35 Anemia, unspecified [facility] 2025-02-01 10:35 Type 1 diabetes mellitus with h yperglycemia [facility] 2025-02-01 10:36 Malignant neoplasm o f unspecified site of unspecified female breast [facility] 2025-02-01 10:36 Secondary malignant neoplasm of unspecified lung [facility] 2025-02-01 10:36 Secondary malignant neoplasm of right lung [facility] 2025-02-01 10:36 Anemia, unspecified [facility] 2025-02-01 10:36 Type 1 diabetes mellitus with h yperglycemia [facility] 2025-02-01 10:38 Malignant neoplasm o f unspecified site of unspecified female breast [facility] 2025-02-01 10:38 Secondary malignant neoplasm of unspecified lung [facility] 2025-02-01 10:38 Secondary malignant neoplasm of right lung [facility] 2025-02-01 10:38 Anemia, unspecified [facility] 2025-02-01 10:38 Type 1 diabetes mellitus with h yperglycemia [facility] 2025-02-01 10:42 Malignant neoplasm o f unspecified site of unspecified female breast [facility] 2025-02-01 10:42 Secondary malignant neoplasm of unspecified lung [facility] 2025-02-01 10:42 Secondary malignant neoplasm of right lung [facility] 2025-02-01 10:42 Anemia, unspecified [facility] 2025-02-01 10:42 Type 1 diabetes mellitus with h yperglycemia [facility] 2025-02-02 05:12 Malignant neoplasm o f unspecified site of unspecified female breast [facility] 2025-02-02 05:12 Secondary malignant neoplasm of unspecified lung [facility] 2025-02-02 13:28 Malignant neoplasm o f unspecified site of unspecified female breast [facility] 2025-02-02 13:28 Secondary malignant neoplasm of unspecified lung [facility] 2025-02-02 13:28 Secondary malignant neoplasm of right lung [facility] 2025-02-02 13:28 Anemia, unspecified [facility] 2025-02-02 13:28 Type 1 diabetes mellitus with h yperglycemia [facility] 2025-02-02 16:42 Malignant neoplasm o f unspecified site of unspecified female breast [facility] 2025-02-02 16:42 Secondary malignant neoplasm of unspecified lung [facility] 2025-02-02 16:52 Malignant neoplasm o f unspecified site of unspecified female breast [facility] 2025-02-02 16:52 Secondary malignant neoplasm of unspecified lung [facility] 2025-02-05 08:06 Malignant neoplasm o f unspecified site of unspecified female breast [facility] 2025-02-05 08:06 Secondary malignant neoplasm of unspecified lung [facility] 2025-02-05 08:06 Secondary malignant neoplasm of right lung [facility] 2025-02-05 08:06 Anemia, unspecified [facility] 2025-02-05 08:06 Type 1 diabetes mellitus with h yperglycemia [facility] 2025-02-05 08:07 Malignant neoplasm o f unspecified site of unspecified female breast [facility] 2025-02-05 08:07 Secondary malignant neoplasm of unspecified lung [facility] 2025-02-05 08:07 Secondary malignant neoplasm of right lung [facility] 2025-02-05 08:07 Anemia, unspecified [facility] 2025-02-05 08:07 Type 1 diabetes mellitus with h yperglycemia [facility] 2025-02-05 08:08 Malignant neoplasm o f unspecified site of unspecified female breast [facility] 2025-02-05 08:08 Secondary malignant neoplasm of unspecified lung [facility] 2025-02-05 08:08 Secondary malignant neoplasm of right lung [facility] 2025-02-05 08:08 Anemia, unspecified [facility] 2025-02-05 08:08 Type 1 diabetes mellitus with h yperglycemia [facility] 2025-02-05 08:09 Malignant neoplasm o f unspecified site of unspecified female breast [facility] 2025-02-05 08:09 Secondary malignant neoplasm of unspecified lung [facility] 2025-02-05 08:09 Secondary malignant neoplasm of right lung [facility] 2025-02-05 08:09 Anemia, unspecified [facility] 2025-02-05 08:09 Type 1 diabetes mellitus with h [facility]perglycemia [facility] 2025-02-05 14:30 Malignant neoplasm o f unspecified site of unspecified female breast [facility] 2025-02-05 14:30 Secondary malignant neoplasm of unspecified lung [facility] 2025-02-07 12:11 Malignant neoplasm o f unspecified site of unspecified female breast [employer] [facility] 2025-02-07 12:11 Secondary malignant neoplasm of unspecified lung [employer] [facility] 2025-02-08 00:02 Malignant neoplasm o f unspecified site of unspecified female breast [facility] 2025-02-08 00:02 Secondary malignant neoplasm of unspecified lung [employer] [facility] 2025-02-09 10:12 Malignant neoplasm o f unspecified site of unspecified female breast [employer] [facility] 2025-02-09 10:12 Secondary malignant neoplasm of right lung [employer] [facility] 2025-02-19 12:41 Encounter for immunization [employer] 2025-02-19 12:41 Asymptomatic menopausal state [employer] 2025-02-21 12:31 Type 1 diabetes mellitus withou t complications [facility] 12:31 Other specified anxiety disorde rs [facility] 2025-02-21 12:31 [facility]oxysmal atrial fibrillation [facility]25[facility] 12:31 Encounter for immunization [employer] 2025-02-21 12:31 Asymptomatic menopausal state [employer] 2025-02-21 14:34 Malignant neoplasm o f unspecified site of unspecified female breast [employer] [facility] 2025-02-21 14:34 Secondary malignant neoplasm of unspecified lung [employer] [facility] 2025-02-21 14:34 Secondary malignant neoplasm of right lung [employer] [facility] 2025-02-21 14:34 Anemia, unspecified [facility] 2025-02-21 14:34 Type 1 diabetes mellitus with h yperglycemia [facility]25-[facility]22 08:25 Malignant neoplasm o f unspecified site of unspecified female breast [employer] [facility] 2025-02-22 08:25 Secondary malignant neoplasm of unspecified lung [facility] 2025-02-22 08:25 Secondary malignant neoplasm of right lung [facility] 2025-02-22 08:25 Anemia, unspecified [facility] 2025-02-22 08:25 Type 1 diabetes mellitus with h yperglycemia [facility] 2025-02-22 08:26 Malignant neoplasm o f unspecified site of unspecified female breast [facility] 2025-02-22 08:26 Secondary malignant neoplasm of unspecified lung [facility] 2025-02-22 08:26 Secondary malignant neoplasm of right lung [facility] 2025-02-22 08:26 Anemia, unspecified [facility] 2025-02-22 08:26 Type 1 diabetes mellitus with h yperglycemia [facility] 2025-02-22 09:03 Malignant neoplasm o f unspecified site of unspecified female breast [facility] 2025-02-22 09:03 Secondary malignant neoplasm of unspecified lung [facility] 2025-02-22 09:03 Secondary malignant neoplasm of right lung [facility] 2025-02-22 09:03 Anemia, unspecified [facility] 2025-02-22 09:03 Type 1 diabetes mellitus with h yperglycemia [facility] 2025-02-22 09:17 Malignant neoplasm o f unspecified site of unspecified female breast [facility] 2025-02-22 09:17 Secondary malignant neoplasm of unspecified lung [facility] 2025-02-22 09:17 Secondary malignant neoplasm of right lung [facility] 2025-02-22 09:17 Anemia, unspecified [facility] 2025-02-22 09:17 Type 1 diabetes mellitus with h yperglycemia [facility] 2025-02-22 09:41 Malignant neoplasm o f unspecified site of unspecified female breast [facility] 2025-02-22 09:41 Secondary malignant neoplasm of unspecified lung [facility] 2025-02-22 09:41 Secondary malignant neoplasm of right lung [facility] 2025-02-22 09:41 Anemia, unspecified [facility] 2025-02-22 09:41 Type 1 diabetes mellitus with h yperglycemia [facility] 2025-02-22 09:42 Malignant neoplasm o f unspecified site of unspecified female breast [facility] 2025-02-22 09:42 Secondary malignant neoplasm of unspecified lung [facility] 2025-02-22 09:42 Secondary malignant neoplasm of right lung [facility] 2025-02-22 09:42 Anemia, unspecified [facility] 2025-02-22 09:42 Type 1 diabetes mellitus with h yperglycemia [facility] 2025-02-22 09:44 Malignant neoplasm o f unspecified site of unspecified female breast [facility] 2025-02-22 09:44 Secondary malignant neoplasm of unspecified lung [facility] 2025-02-22 09:44 Secondary malignant neoplasm of right lung [facility] 2025-02-22 09:44 Anemia, unspecified [facility] 2025-02-22 09:44 Type 1 diabetes mellitus with h yperglycemia [facility] 2025-02-22 09:46 Malignant neoplasm o f unspecified site of unspecified female breast [facility] 2025-02-22 09:46 Secondary malignant neoplasm of unspecified lung [facility] 2025-02-22 09:46 Secondary malignant neoplasm of right lung [facility] 2025-02-22 09:46 Anemia, unspecified [facility] 2025-02-22 09:46 Type 1 diabetes mellitus with h yperglycemia [facility] 2025-02-23 14:25 Malignant neoplasm o f unspecified site of unspecified female breast [facility] 2025-02-23 14:25 Secondary malignant neoplasm of unspecified lung [facility] 2025-02-23 14:25 Secondary malignant neoplasm of right lung [facility] 2025-02-23 14:25 Anemia, unspecified [facility] 2025-02-23 14:25 Type 1 diabetes mellitus with h yperglycemia [facility] 2025-02-28 13:52 Malignant neoplasm o f unspecified site of unspecified female breast [facility] 2025-02-28 13:52 Secondary malignant neoplasm of unspecified lung [employer] [facility] 2025-02-28 13:52 Secondary malignant neoplasm of right lung [employer] [facility] 2025-02-28 13:52 [facility]emia, unspecified [facility] 13:52 Type 1 diabetes mellitus with h yperglycemia [facility] Results/Labs test date facility value unit notes Result panel 1 NUCLEATED RED BLOOD CELLS AUTO 2024-12-07 08:35 [facility] 0.0 /100wbc (missing) BASOPHILS # (AUTO) 2024-12-07 08:35 [facility] 0.0 10 3/ul (missing) NRBC ABSOLUTE COUNT (AUTO) 2024-12-07 08:35 [facility] 0.00 x10 3/ul (missing) EOSINOPHILS # (AUTO) 2024-12-07 08:35 [facility] 0.2 10 3/ul (missing) BILIRUBIN,TOTAL 2024-12-07 08:35 [facility] 0.4 mg/dl As of October 2022 testing method has changed, this may include reference ranges. CREATININE 2024-12-07 08:35 [facility] 0.6 mg/dl As of October 2022 testing method has changed, this may include reference ranges. MONOCYTES # (AUTO) 2024-12-07 08:35 [facility] 0.7 10 3/ul (missing) LYMPHOCYTES # (AUTO) 2024-12-07 08:35 [facility] 0.9 10 3/ul (missing) ALBUMIN/GLOBULIN RATIO 2024-12-07 08:35 [facility] 1.1 (missing) (missing) MEAN PLATELET VOLUME 2024-12-07 08:35 [facility] 10.4 fl (missing) CHLORIDE 2024-12-07 08:35 [facility] 108 mmol/l As of October 2022 testing method has changed, this may include reference ranges. MEAN CORPUSCULAR VOLUME 2024-12-07 08:35 [facility] 108.6 fl (missing) ALKALINE PHOSPHATASE 2024-12-07 08:35 [facility] 126 iu/l As of October 2022 testing method has changed, this may include reference ranges. PLT - PLATELET COUNT 2024-12-07 08:35 [facility] 134 10 3/ul (missing) SODIUM 2024-12-07 08:35 [facility] 138 mmol/l No GLUCOSE 2024-12-07 08:35 [facility] 147 mg/dl As of October 2022 testing method has changed, this may include reference ranges. RED CELL DISTRIBUTION WIDTH 2024-12-07 08:35 [facility] 16.8 % (missing) BUN - BLOOD UREA NITROGEN 2024-12-07 08:35 [facility] 17 mg/dl As of October 2022 testing method has changed, this may include reference ranges. RED BLOOD COUNT 2024-12-07 08:35 [facility] 2.80 10 6/ul (missing) AST ASPARTATE AMINOTRANSFERASE 2024-12-07 08:35 [facility] 22 iu/l As of October 2022 testing method has changed, this may include reference ranges. ALT ALANINE AMINOTRANSFERASE 2024-12-07 08:35 [facility] 23 iu/l As of October 2022 testing method has changed, this may include reference ranges. CARBON DIOXIDE - CO2 2024-12-07 08:35 [facility] 27 mmol/l As of October 2022 testing method has changed, this may include reference ranges. ANION GAP 2024-12-07 08:35 [facility] 3.0 (missing) (missing) NEUTROPHILS # (AUTO) 2024-12-07 08:35 [facility] 3.4 10 3/ul (missing) GLOBULIN 2024-12-07 08:35 [facility] 3.6 g/dl (missing) ALBUMIN 2024-12-07 08:35 [facility] 3.9 g/dl As of October 2022 testing method has changed, this may include reference ranges. HCT - HEMATOCRIT 2024-12-07 08:35 [facility] 30.4 % (missing) MEAN CORPUSCULAR HGB CONC 2024-12-07 08:35 [facility] 32.2 g/dl (missing) MEAN CORPUSCULAR HEMOGLOBIN 2024-12-07 08:35 [facility] 35.0 pg (missing) POTASSIUM 2024-12-07 08:35 [facility] 4.1 mmol/l As of October 2022 testing method has changed, this may include reference ranges. WHITE BLOOD COUNT 2024-12-07 08:[address] [facility] 5.1 x10 3/ul (missing) TOTAL PROTEIN 2024-12-07 08:35 [facility] 7.5 g/dl As of October 2022 testing method has changed, this may include reference ranges. CALCIUM 2024-12-07 08:35 [facility] 9.3 mg/dl As of October 2022 testing method has changed, this may include reference ranges. HGB - HEMOGLOBIN 2024-12-07 08:35 [facility] 9.8 g/dl (missing) GFR - MDRD 2024-12-07 08:35 [facility] 98 (missing) The IDMS-traceable MDRD Study Equation has been validated extensively in and populations between the ages of 18 and 70 with impaired kidney function (eGFR < 60 mL/min/1.73m2) and has shown good performance for patients with all common causes of kidney disease. Although this equation has not been validated for patients older than 70, an MDRD-derived eGFR may still be a useful tool for providers caring for patients older than 70. References: http://www.nkdep. nih.gov/lab-evalu ation/gfr/creatin ine-stand ardization, last updated July 2011. Result panel 2 NUCLEATED RED BLOOD CELLS AUTO 2024-12-21 08:08 [facility] 0.0 /100wbc (missing) BASOPHILS # (AUTO) 2024-12-21 08:08 [facility] 0.0 10 3/ul (missing) NRBC ABSOLUTE COUNT (AUTO) 2024-12-21 08:08 [facility] 0.00 x10 3/ul (missing) EOSINOPHILS # (AUTO) 2024-12-21 08:08 [facility] 0.3 10 3/ul (missing) BILIRUBIN,TOTAL 2024-12-21 08:08 [facility] 0.4 mg/dl As of October 2022 testing method has changed, this may include reference ranges. MONOCYTES # (AUTO) 2024-12-21 08:08 [facility] 0.5 10 3/ul (missing) LYMPHOCYTES # (AUTO) 2024-12-21 08:08 [facility] 0.7 10 3/ul (missing) CREATININE 2024-12-21 08:08 [facility] 0.7 mg/dl As of October 2022 testing method has changed, this may include reference ranges. ALBUMIN/GLOBULIN RATIO 2024-12-21 08:08 [facility] 0.9 (missing) (missing) RBC MORPHOLOGY (MULTIPLE) 2024-12-21 08:08 [facility] 1+ MACROCYTOSIS (missing) (missing) RBC MORPHOLOGY (MULTIPLE) 2024-12-21 08:08 [facility] 1+ TEARDROP CELLS (missing) (missing) HGB - HEMOGLOBIN 2024-12-21 08:08 [facility] 10.8 g/dl (missing) CHLORIDE 2024-12-21 08:08 [facility] 105 mmol/l As of October 2022 testing method has changed, this may include reference ranges. MEAN CORPUSCULAR VOLUME 2024-12-21 08:08 [facility] 110.2 fl (missing) PLT - PLATELET COUNT 2024-12-21 08:08 [facility] 138 10 3/ul (missing) ALKALINE PHOSPHATASE 2024-12-21 08:08 [facility] 138 iu/l As of October 2022 testing method has changed, this may include reference ranges. SODIUM 2024-12-21 08:08 [facility] 139 mmol/l No RED CELL DISTRIBUTION WIDTH 2024-12-21 08:08 [facility] 16.1 % (missing) GLUCOSE 2024-12-21 08:08 [facility] 168 mg/dl As of October 2022 testing method has changed, this may include reference ranges. BUN - BLOOD UREA NITROGEN 2024-12-21 08:08 [facility] 19 mg/dl As of October 2022 testing method has changed, this may include reference ranges. ALT ALANINE AMINOTRANSFERASE 2024-12-21 08:08 [facility] 28 iu/l As of October 2022 testing method has changed, this may include reference ranges. RED BLOOD COUNT 2024-12-21 08:08 [facility] 3.05 10 6/ul (missing) NEUTROPHILS # (AUTO) 2024-12-21 08:08 [facility] 3.1 10 3/ul (missing) POTASSIUM 2024-12-21 08:08 [facility] 3.9 mmol/l As of October 2022 testing method has changed, this may include reference ranges. AST ASPARTATE AMINOTRANSFERASE 2024-12-21 08:08 [facility] 30 iu/l As of October 2022 testing method has changed, this may include reference ranges. CARBON DIOXIDE - CO2 2024-12-21 08:08 [facility] 30 mmol/l As of October 2022 testing method has changed, this may include reference ranges. MEAN CORPUSCULAR HGB CONC 2024-12-21 08:08 [facility] 32.1 g/dl (missing) HCT - HEMATOCRIT 2024-12-21 08:08 [facility] 33.6 % (missing) MEAN CORPUSCULAR HEMOGLOBIN 2024-12-21 08:08 [facility] 35.4 pg (missing) ANION GAP 2024-12-21 08:08 [facility] 4.0 (missing) (missing) ALBUMIN 2024-12-21 08:08 [facility] 4.1 g/dl As of October 2022 testing method has changed, this may include reference ranges. GLOBULIN 2024-12-21 08:08 [facility] 4.4 g/dl (missing) WHITE BLOOD COUNT 2024-12-21 08:08 [facility] 4.6 x10 3/ul (missing) TOTAL PROTEIN 2024-12-21 08:08 [facility] 8.5 g/dl As of October 2022 testing method has changed, this may include reference ranges. GFR - MDRD 2024-12-21 08:08 [facility] 82 (missing) The IDMS-traceable MDRD Study Equation has been validated extensively in and populations between the ages of 18 and 70 with impaired kidney function (eGFR < 60 mL/min/1.73m2) and has shown good performance for patients with all common causes of kidney disease. Although this equation has not been validated for patients older than 70, an MDRD-derived eGFR may still be a useful tool for providers caring for patients older than 70. References: http://www.nkd ep.nih.gov/lab -evaluation/gf r/creatinine-s tand ardization, last updated July 2011. CALCIUM 2024-12-21 08:08 [facility] 9.5 mg/dl As of October 2022 testing method has changed, this may include reference ranges. MEAN PLATELET VOLUME 2024-12-21 08:08 [facility] 9.9 fl (missing) SLIDE REVIEW? 2024-12-21 08:08 [facility] Indicated (missing) (missing) PLATELET ESTIMATE, MANUAL 2024-12-21 08:08 [facility] NORMAL (130-450,000) (missing) (missing) PLATELET MORPHOLOGY 2024-12-21 08:08 [facility] NORMAL APPEARANCE (missing) (missing) Result panel 3 NUCLEATED RED BLOOD CELLS AUTO 2025-01-04 08:37 [facility] 0.0 /100wbc (missing) BASOPHILS # (AUTO) 2025-01-04 08:37 [facility] 0.0 10 3/ul (missing) NRBC ABSOLUTE COUNT (AUTO) 2025-01-04 08:37 [facility] 0.00 x10 3/ul (missing) EOSINOPHILS # (AUTO) 2025-01-04 08:37 [facility] 0.3 10 3/ul (missing) BILIRUBIN,TOTAL 2025-01-04 08:37 [facility] 0.3 mg/dl As of October 2022 testing method has changed, this may include reference ranges. CREATININE 2025-01-04 08:37 [facility] 0.7 mg/dl As of October 2022 testing method has changed, this may include reference ranges. MONOCYTES # (AUTO) 2025-01-04 08:37 [facility] 0.8 10 3/ul (missing) ALBUMIN/GLOBULIN RATIO 2025-01-04 08:37 [facility] 0.9 (missing) (missing) LYMPHOCYTES # (AUTO) 2025-01-04 08:37 [facility] 0.9 10 3/ul (missing) RBC MORPHOLOGY (MULTIPLE) 2025-01-04 08:37 [facility] 1+ TEARDROP CELLS (missing) (missing) HGB - HEMOGLOBIN 2025-01-04 08:37 [facility] 10.0 g/dl (missing) CHLORIDE 2025-01-04 08:37 [facility] 108 mmol/l As of October 2022 testing method has changed, this may include reference ranges. MEAN CORPUSCULAR VOLUME 2025-01-04 08:37 [facility] 110.1 fl (missing) PLT - PLATELET COUNT 2025-01-04 08:37 [facility] 132 10 3/ul (missing) SODIUM 2025-01-04 08:37 [facility] 140 mmol/l Unknown RED CELL DISTRIBUTION WIDTH 2025-01-04 08:37 [facility] 15.9 % (missing) ALKALINE PHOSPHATASE 2025-01-04 08:37 [facility] 152 iu/l As of October 2022 testing method has changed, this may include reference ranges. RBC MORPHOLOGY (MULTIPLE) 2025-01-04 08:37 [facility] 2+ MACROCYTOSIS (missing) (missing) RED BLOOD COUNT 2025-01-04 08:37 [facility] 2.86 10 6/ul (missing) BUN - BLOOD UREA NITROGEN 2025-01-04 08:37 [facility] 22 mg/dl As of October 2022 testing method has changed, this may include reference ranges. CARBON DIOXIDE - CO2 2025-01-04 08:37 [facility] 29 mmol/l As of October 2022 testing method has changed, this may include reference ranges. ANION GAP 2025-01-04 08:37 [facility] 3.0 (missing) (missing) NEUTROPHILS # (AUTO) 2025-01-04 08:37 [facility] 3.7 10 3/ul (missing) ALBUMIN 2025-01-04 08:37 [facility] 3.9 g/dl As of October 2022 testing method has changed, this may include reference ranges. AST ASPARTATE AMINOTRANSFERASE 2025-01-04 08:37 [facility] 30 iu/l As of October 2022 testing method has changed, this may include reference ranges. HCT - HEMATOCRIT 2025-01-04 08:37 [facility] 31.5 % (missing) MEAN CORPUSCULAR HGB CONC 2025-01-04 08:37 [facility] 31.7 g/dl (missing) ALT ALANINE AMINOTRANSFERASE 2025-01-04 08:37 [facility] 34 iu/l As of October 2022 testing method has changed, this may include reference ranges. MEAN CORPUSCULAR HEMOGLOBIN 2025-01-04 08:37 [facility] 35.0 pg (missing) POTASSIUM 2025-01-04 08:37 [facility] 4.1 mmol/l As of October 2022 testing method has changed, this may include reference ranges. GLOBULIN 2025-01-04 08:37 [facility] 4.3 g/dl (missing) WHITE BLOOD COUNT 2025-01-04 08:37 [facility] 5.7 x10 3/ul (missing) TOTAL PROTEIN 2025-01-04 08:37 [facility] 8.2 g/dl As of October 2022 testing method has changed, this may include reference ranges. GFR - MDRD 2025-01-04 08:37 [facility] 82 (missing) The IDMS-traceable MDRD Study Equation has been validated extensively in and populations between the ages of 18 and 70 with impaired kidney function (eGFR < 60 mL/min/1.73m2) and has shown good performance for patients with all common causes of kidney disease. Although this equation has not been validated for patients older than 70, an MDRD-derived eGFR may still be a useful tool for providers caring for patients older than 70. References: http://www.nkd ep.nih.gov/lab -evaluation/gf r/creatinine-s tand ardization, last updated July 2011. GLUCOSE 2025-01-04 08:37 [facility] 84 mg/dl As of October 2022 testing method has changed, this may include reference ranges. CALCIUM 2025-01-04 08:37 [facility] 9.4 mg/dl As of October 2022 testing method has changed, this may include reference ranges. MEAN PLATELET VOLUME 2025-01-04 08:37 [facility] 9.6 fl (missing) SLIDE REVIEW? 2025-01-04 08:37 [facility] Indicated (missing) (missing) Result panel 4 NUCLEATED RED BLOOD CELLS AUTO 2025-01-18 08:35 [facility] 0.0 /100wbc (missing) BASOPHILS # (AUTO) 2025-01-18 08:35 [facility] 0.0 10 3/ul (missing) NRBC ABSOLUTE COUNT (AUTO) 2025-01-18 08:35 [facility] 0.00 x10 3/ul (missing) EOSINOPHILS # (AUTO) 2025-01-18 08:35 [facility] 0.3 10 3/ul (missing) BILIRUBIN,TOTAL 2025-01-18 08:35 [facility] 0.3 mg/dl As of October 2022 testing method has changed, this may include reference ranges. CREATININE 2025-01-18 08:35 [facility] 0.7 mg/dl As of October 2022 testing method has changed, this may include reference ranges. MONOCYTES # (AUTO) 2025-01-18 08:35 [facility] 0.8 10 3/ul (missing) RBC MORPHOLOGY (MULTIPLE) 2025-01-18 08:35 [facility] 1+ HYPOCHROMASIA (missing) (missing) LYMPHOCYTES # (AUTO) 2025-01-18 08:35 [facility] 1.0 10 3/ul (missing) ALBUMIN/GLOBULIN RATIO 2025-01-18 08:35 [facility] 1.1 (missing) (missing) CHLORIDE 2025-01-18 08:35 [facility] 107 mmol/l As of October 2022 testing method has changed, this may include reference ranges. MEAN CORPUSCULAR VOLUME 2025-01-18 08:35 [facility] 110.1 fl (missing) ALKALINE PHOSPHATASE 2025-01-18 08:35 [facility] 132 iu/l As of October 2022 testing method has changed, this may include reference ranges. SODIUM 2025-01-18 08:35 [facility] 138 mmol/l Unknown PLT - PLATELET COUNT 2025-01-18 08:35 [facility] 144 10 3/ul (missing) RED CELL DISTRIBUTION WIDTH 2025-01-18 08:35 [facility] 15.5 % (missing) GLUCOSE 2025-01-18 08:35 [facility] 151 mg/dl As of October 2022 testing method has changed, this may include reference ranges. BUN - BLOOD UREA NITROGEN 2025-01-18 08:35 [facility] 18 mg/dl As of October 2022 testing method has changed, this may include reference ranges. RBC MORPHOLOGY (MULTIPLE) 2025-01-18 08:35 [facility] 2+ ANISOCYTOSIS (missing) (missing) RBC MORPHOLOGY (MULTIPLE) 2025-01-18 08[facility] 2+ MACROCYTOSIS (missing) (missing) RED BLOOD COUNT 2025-01-18 08:35 [facility] 2.78 10 6/ul (missing) CARBON DIOXIDE - CO2 2025-01-18 08:35 [facility] 27 mmol/l As of October 2022 testing method has changed, this may include reference ranges. GLOBULIN 2025-01-18 08:35 [facility] 3.5 g/dl (missing) NEUTROPHILS # (AUTO) 2025-01-18 08:35 [facility] 3.8 10 3/ul (missing) ALBUMIN 2025-01-18 08:35 [facility] 3.8 g/dl As of October 2022 testing method has changed, this may include reference ranges. POTASSIUM 2025-01-18 08:35 [facility] 3.9 mmol/l As of October 2022 testing method has changed, this may include reference ranges. HCT - HEMATOCRIT 2025-01-18 08:35 [facility] 30.6 % (missing) MEAN CORPUSCULAR HGB CONC 2025-01-18 08:35 [facility] 31.4 g/dl (missing) AST ASPARTATE AMINOTRANSFERASE 2025-01-18 08:35 [facility] 33 iu/l As of October 2022 testing method has changed, this may include reference ranges. ALT ALANINE AMINOTRANSFERASE 2025-01-18 08:35 [facility] 33 iu/l As of October 2022 testing method has changed, this may include reference ranges. MEAN CORPUSCULAR HEMOGLOBIN 2025-01-18 08:35 [facility] 34.5 pg (missing) ANION GAP 2025-01-18 08:35 [facility] 4.0 (missing) (missing) WHITE BLOOD COUNT 2025-01-18 08:35 [facility] 5.9 x10 3/ul (missing) TOTAL PROTEIN 2025-01-18 08:35 [facility] 7.3 g/dl As of October 2022 testing method has changed, this may include reference ranges. GFR - MDRD 2025-01-18 08:35 [facility] 82 (missing) The IDMS-traceable MDRD Study Equation has been validated extensively in and populations between the ages of 18 and 70 with impaired kidney function (eGFR < 60 mL/min/1.73m2) and has shown good performance for patients with all common causes of kidney disease. Although this equation has not been validated for patients older than 70, an MDRD-derived eGFR may still be a useful tool for providers caring for patients older than 70. References: http://www.nkd ep.nih.gov/lab -evaluation/gf r/creatinine-s tand ardization, last updated July 2011. CALCIUM 2025-01-18 08:35 [facility] 9.3 mg/dl As of October 2022 testing method has changed, this may include reference ranges. HGB - HEMOGLOBIN 2025-01-18 08:35 [facility] 9.6 g/dl (missing) MEAN PLATELET VOLUME 2025-01-18 08:35 [facility] 9.8 fl (missing) SLIDE REVIEW? 2025-01-18 08:35 [facility] Indicated (missing) (missing) PLATELET ESTIMATE, MANUAL 2025-01-18 08:35 [facility] NORMAL (130-450,000) (missing) (missing) PLATELET MORPHOLOGY 2025-01-18 08:35 [facility] NORMAL APPEARANCE (missing) (missing) WBC MORPHOLOGY (MULTIPLE) 2025-01-18 08:35 [facility] NORMAL APPEARANCE (missing) (missing) Result panel 5 NUCLEATED RED BLOOD CELLS AUTO 2025-02-01 08:35 [facility] 0.0 /100wbc (missing) BASOPHILS # (AUTO) 2025-02-01 08:35 [facility] 0.0 10 3/ul (missing) NRBC ABSOLUTE COUNT (AUTO) 2025-02-01 08:35 [facility] 0.00 x10 3/ul (missing) EOSINOPHILS # (AUTO) 2025-02-01 08:35 [facility] 0.3 10 3/ul (missing) BILIRUBIN,TOTAL 2025-02-01 08:35 [facility] 0.3 mg/dl As of October 2022 testing method has changed, this may include reference ranges. MONOCYTES # (AUTO) 2025-02-01 08:35 [facility] 0.6 10 3/ul (missing) CREATININE 2025-02-01 08:35 [facility] 0.6 mg/dl As of October 2022 testing method has changed, this may include reference ranges. LYMPHOCYTES # (AUTO) 2025-02-01 08:35 [facility] 0.8 10 3/ul (missing) ALBUMIN/GLOBULIN RATIO 2025-02-01 08:35 [facility] 0.9 (missing) (missing) RBC MORPHOLOGY (MULTIPLE) 2025-02-01 08:35 [facility] 1+ MACROCYTOSIS (missing) HISTORICALLY ELEVATED MCV MEAN PLATELET VOLUME 2025-02-01 08:35 [facility] 10.4 fl (missing) CHLORIDE 2025-02-01 08:35 [facility] 106 mmol/l As of October 2022 testing method has changed, this may include reference ranges. MEAN CORPUSCULAR VOLUME 2025-02-01 08:35 [facility] 110.9 fl (missing) ALKALINE PHOSPHATASE 2025-02-01 08:35 [facility] 130 iu/l As of October 2022 testing method has changed, this may include reference ranges. SODIUM 2025-02-01 08:35 [facility] 137 mmol/l Unknown PLT - PLATELET COUNT 2025-02-01 08:35 [facility] 138 10 3/ul (missing) RED CELL DISTRIBUTION WIDTH 2025-02-01 08:35 [facility] 15.5 % (missing) BUN - BLOOD UREA NITROGEN 2025-02-01 08:35 [facility] 16 mg/dl As of October 2022 testing method has changed, this may include reference ranges. GLUCOSE 2025-02-01 08:35 [facility] 172 mg/dl As of October 2022 testing method has changed, this may include reference ranges. AST ASPARTATE AMINOTRANSFERASE 2025-02-01 08:35 [facility] 19 iu/l As of October 2022 testing method has changed, this may include reference ranges. RED BLOOD COUNT 2025-02-01 08:35 [facility] 2.66 10 6/ul (missing) ALT ALANINE AMINOTRANSFERASE 2025-02-01 08:35 [facility] 22 iu/l As of October 2022 testing method has changed, this may include reference ranges. CARBON DIOXIDE - CO2 2025-02-01 08:35 [facility] 27 mmol/l As of October 2022 testing method has changed, this may include reference ranges. HCT - HEMATOCRIT 2025-02-01 08:35 [facility] 29.5 % (missing) NEUTROPHILS # (AUTO) 2025-02-01 08:35 [facility] 3.4 10 3/ul (missing) ALBUMIN 2025-02-01 08:35 [facility] 3.8 g/dl As of October 2022 testing method has changed, this may include reference ranges. MEAN CORPUSCULAR HGB CONC 2025-02-01 08:35 [facility] 31.9 g/dl (missing) MEAN CORPUSCULAR HEMOGLOBIN 2025-02-01 08:35 [facility] 35.3 pg (missing) ANION GAP 2025-02-01 08:35 [facility] 4.0 (missing) (missing) POTASSIUM 2025-02-01 08:35 [facility] 4.1 mmol/l As of October 2022 testing method has changed, this may include reference ranges. GLOBULIN 2025-02-01 08:35 [facility] 4.3 g/dl (missing) WHITE BLOOD COUNT 2025-02-01 08:35 [facility] 5.2 x10 3/ul (missing) TOTAL PROTEIN 2025-02-01 08:35 [facility] 8.1 g/dl As of October 2022 testing method has changed, this may include reference ranges. CALCIUM 2025-02-01 08:35 [facility] 9.2 mg/dl As of October 2022 testing method has changed, this may include reference ranges. HGB - HEMOGLOBIN 2025-02-01 08:35 [facility] 9.4 g/dl (missing) GFR - MDRD 2025-02-01 08:35 [facility] 98 (missing) The IDMS-traceable MDRD Study Equation has been validated extensively in and populations between the ages of 18 and 70 with impaired kidney function (eGFR < 60 mL/min/1.73m2) and has shown good performance for patients with all common causes of kidney disease. Although this equation has not been validated for patients older than 70, an MDRD-derived eGFR may still be a useful tool for providers caring for patients older than 70. References: http://www.nkde p.nih.gov/lab-e valuation/gfr/c ratna-pj ardization, last updated July 2011. SLIDE REVIEW? 2025-02-01 08:35 [facility] Indicated (missing) (missing) PLATELET ESTIMATE, MANUAL 2025-02-01 08:35 [facility] NORMAL (130-450,000) (missing) (missing) PLATELET MORPHOLOGY 2025-02-01 08:35 [facility] NORMAL APPEARANCE (missing) (missing) WBC MORPHOLOGY (MULTIPLE) 2025-02-01 08:35 [facility] NORMAL APPEARANCE (missing) (missing) Result panel 6 NUCLEATED RED BLOOD CELLS AUTO 2025-02-21 14:40 [facility] 0.0 /100wbc (missing) BASOPHILS # (AUTO) 2025-02-21 14:40 [facility] 0.0 10 3/ul (missing) NRBC ABSOLUTE COUNT (AUTO) 2025-02-21 14:40 [facility] 0.00 x10 3/ul (missing) EOSINOPHILS # (AUTO) 2025-02-21 14:40 [facility] 0.3 10 3/ul (missing) BILIRUBIN,TOTAL 2025-02-21 14:40 [facility] 0.4 mg/dl As of October 2022 testing method has changed, this may include reference ranges. CREATININE 2025-02-21 14:40 [facility] 0.6 mg/dl As of October 2022 testing method has changed, this may include reference ranges. LYMPHOCYTES # (AUTO) 2025-02-21 14:40 [facility] 0.8 10 3/ul (missing) ALBUMIN/GLOBULIN RATIO 2025-02-21 14:40 [facility] 0.9 (missing) (missing) MONOCYTES # (AUTO) 2025-02-21 14:40 [facility] 0.9 10 3/ul (missing) HGB - HEMOGLOBIN 2025-02-21 14:40 [facility] 10.2 g/dl (missing) CHLORIDE 2025-02-21 14:40 [facility] 107 mmol/l As of October 2022 testing method has changed, this may include reference ranges. MEAN CORPUSCULAR VOLUME 2025-02-21 14:40 [facility] 109.2 fl (missing) GLUCOSE 2025-02-21 14:40 [facility] 133 mg/dl As of October 2022 testing method has changed, this may include reference ranges. SODIUM 2025-02-21 14:40 [facility] 137 mmol/l No ALT ALANINE AMINOTRANSFERASE 2025-02-21 14:40 [facility] 15 iu/l As of October 2022 testing method has changed, this may include reference ranges. RED CELL DISTRIBUTION WIDTH 2025-02-21 14:40 [facility] 15.4 % (missing) AST ASPARTATE AMINOTRANSFERASE 2025-02-21 14:40 [facility] 17 iu/l As of October 2022 testing method has changed, this may include reference ranges. BUN - BLOOD UREA NITROGEN 2025-02-21 14:40 [facility] 17 mg/dl As of October 2022 testing method has changed, this may include reference ranges. RED BLOOD COUNT 2025-02-21 14:40 [facility] 2.94 10 6/ul (missing) PLT - PLATELET COUNT 2025-02-21 14:40 [facility] 225 10 3/ul (missing) CARBON DIOXIDE - CO2 2025-02-21 14:40 [facility] 26 mmol/l As of October 2022 testing method has changed, this may include reference ranges. NEUTROPHILS # (AUTO) 2025-02-21 14:40 [facility] 3.5 10 3/ul (missing) ALBUMIN 2025-02-21 14:40 [facility] 3.8 g/dl As of October 2022 testing method has changed, this may include reference ranges. MEAN CORPUSCULAR HGB CONC 2025-02-21 14:40 [facility] 31.8 g/dl (missing) HCT - HEMATOCRIT 2025-02-21 14:40 [facility] 32.1 % (missing) MEAN CORPUSCULAR HEMOGLOBIN 2025-02-21 14:40 [facility] 34.7 pg (missing) ANION GAP 2025-02-21 14:40 [facility] 4.0 (missing) (missing) GLOBULIN 2025-02-21 14:40 [facility] 4.1 g/dl (missing) POTASSIUM 2025-02-21 14:40 [facility] 4.2 mmol/l As of October 2022 testing method has changed, this may include reference ranges. WHITE BLOOD COUNT 2025-02-21 14:40 [facility] 5.5 x10 3/ul (missing) TOTAL PROTEIN 2025-02-21 14:40 [facility] 7.9 g/dl As of October 2022 testing method has changed, this may include reference ranges. ALKALINE PHOSPHATASE 2025-02-21 14:40 [facility] 89 iu/l As of October 2022 testing method has changed, this may include reference ranges. CALCIUM 2025-02-21 14:40 [facility] 9.1 mg/dl As of October 2022 testing method has changed, this may include reference ranges. MEAN PLATELET VOLUME 2025-02-21 14:40 [facility] 9.3 fl (missing) GFR - MDRD 2025-02-21 14:40 [facility] 98 (missing) The IDMS-traceable MDRD Study Equation has been validated extensively in and populations between the ages of 18 and 70 with impaired kidney function (eGFR < 60 mL/min/1.73m2) and has shown good performance for patients with all common causes of kidney disease. Although this equation has not been validated for patients older than 70, an MDRD-derived eGFR may still be a useful tool for providers caring for patients older than 70. References: http://www.nkdep. nih.gov/lab-evalu ation/gfr/creatin ine-stand ardization, last updated July 2011. Result panel 7 CA 15-3 2025-02-22 09:10 [facility] 21.8 u/ml [employer] DXI uses an immunoenzymatic assay to determine the BR15-3 value. Values obtained with different assay methods or kits cannot be used interchangeably. Results cannot be interpreted as absolute evidence for the presence or absence of malignant disease. CA 27.29 2025-02-22 09:10 [facility] 62.7 u/ml [employer] Immunochemiluminometric Methodology (ICMA) Values obtained with different assay methods or kits cannot be used interchangeably. Results cannot be interpreted as absolute evidence of the presence or absence of malignant disease. Performed at: [address] [id number] [employer] Supervisor: Randal Maki MD, Phone: [phone] Social History date description facility
[2025-03-01] MEDS: TRANEXAMIC ACID 1,000 MG/10 ML VIAL NAS STA (16:54)
[2025-03-01] MEDS: OXYMETAZOLINE NASAL SPRAY NAS STA (16:54)
[2025-03-01] MEDS: SODIUM CHLORIDE 0.9% 1,000 ML IV STA (17:48)
[2025-03-01] MEDS: ONDANSETRON 4 MG/2 ML VIAL IVP STA (17:53)
[2025-03-01 18:28] LABS: HCT - HEMATOCRIT 24.9 % (37.0-47.0); HGB - HEMOGLOBIN 7.8 g/dL (12.0-16.0); MEAN PLATELET VOLUME 9.6 fL (7.9-10.8); PLT - PLATELET COUNT 87 10^3/uL (130-450); RED CELL DISTRIBUTION WIDTH 14.6 % (12.0-15.0)
[2025-03-01 18:41] LABS: ABNORMAL LYMPHS % (MANUAL) 0 %; EOSINOPHILS # (MANUAL) 0.0 10^3/uL (0-0.7)
[2025-03-01 18:42] LABS: ALT ALANINE AMINOTRANSFERASE 20.0 IU/L (10-60); AST ASPARTATE AMINOTRANSFERASE 13.0 IU/L (10-42); BUN - BLOOD UREA NITROGEN 32.0 mg/dL (6-20); CARBON DIOXIDE - CO2 26.0 mmol/L (21-32); CREATININE 0.6 mg/dL (0.6-1.3); GFR - MDRD 98.0 (>89)
[2025-03-01 18:49] LABS: INR 1.5 (0.8-1.2); PT - PROTHROMBIN TIME 16.5 secs (9.9-12.6)
[2025-03-01 19:11] LABS: BAND NEUTROPHILS % (MANUAL) 2 %; BASOPHILS # (MANUAL) 0.2 10^3/uL (0-0.1); BASOPHILS % (MANUAL) 1 %; LYMPHOCYTES # (MANUAL) 1.4 10^3/uL (1.5-3.5); LYMPHOCYTES % (MANUAL) 6 %; MONOCYTES # (MANUAL) 0.9 10^3/uL (0.0-1.0); NEUTROPHILS # (MANUAL) 20.7 10^3/uL (1.5-6.6)
[2025-03-01 19:37] LABS: PLATELET ESTIMATE, MANUAL NORMAL (130-450,000) (NORMAL); PLATELET MORPHOLOGY NORMAL APPEARANCE (NORMAL)
--- NOTE | 2025-03-01 20:33 | XRAY Report ---
PROCEDURE: XR Chest 1V INDICATIONS: syncope TECHNIQUE: One view of the chest was acquired. COMPARISON: None. FINDINGS: Surgical changes and devices: Right portacatheter. Surgical clips project over the chest bilaterally. Lungs and pleura: No pleural effusions or pneumothorax. No consolidation. Mediastinum: Mediastinal contours appear normal. Heart size is normal. Bones and chest wall: No suspicious bony lesions. Overlying soft tissues appear unremarkable. IMPRESSION: No acute cardiopulmonary process. Reviewed by: Louis Harley MD on 03/01/2025 8:30 PM PDT Approved by: Louis Harley MD on 03/01/2025 8:30 PM PDT Station ID: [id number]
--- NOTE | 2025-03-01 20:34 | HISTORY & PHYSICAL EXAMINATION ---
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 She has been struggling with this nosebleed for a period of days now. She was seen at the walk-in clinic yesterday and it was managed conservatively with oxymetazoline spray, lidocaine with epinephrine and manual pressure. It started bleeding again today and therefore she presented to the emergency department. In the emergency department it was controlled with a pressure dressing. It is bleeding from the left nostril. Labs were done, chemistries were unremarkable but her CBC was remarkable for a white count of 23.3 with high neutrophils, hemoglobin 7.8. Emergency department provider ordered 1 unit of packed red blood cells and asked me to admit this patient for observation in light of her leukocytosis. Workup in the emergency department has included a chest x-ray which is done but not read, a urinalysis which has not yet been collected, and blood cultures x 2. This patient completed gamma knife therapy for her brain metastases on 02/14/2025. She had some issues with hyperglycemia during this time related to the steroids, she is off of steroids at this time. Her last chemotherapy treatment was 02/22/2025. Oncology notes were reviewed and it seems that usually she becomes neutropenic after chemotherapy treatments. CODE STATUS reviewed, DNR, her son Ash is her surrogate medical decision maker should she need 1. Meds/Allgy Home Medications Ambulatory Orders Medication Instructions Recorded Confirmed magnesium 250 mg tablet 500 mg PO DAILY 06/19/15 acetone (urine) test (Ketostix 04/13/24 03/01/25 strips) apixaban 5 mg tablet (Eliquis) 5 mg PO BID 04/13/24 biotin 2,500 mcg capsule 2,500 mcg PO QDAY 04/13/24 1 blood sugar diagnostic (OneTouch 04/13/24 03/01/25 Verio test strips) blood-glucose meter (OneTouch 04/13/24 03/01/25 Verio Flex Meter) blood-glucose,receiver dispatcher,cont 04/13/24 03/01/25 (FreeStyle Ember 3 [place]) lancets 30 gauge 04/13/24 03/01/25 metoprolol succinate 50 mg 50 mg PO DAILY 04/13/24 tablet,extended release 24 hr propylhexedrine (Benzedrex nasal 2 inh intranasal Q4H 04/13/24 03/01/25 inhaler) triamcinolone acetonide 55 mcg 2 spray intranasal QDAY 04/13/24 03/01/25 nasal spray aerosol (Nasacort) vitamin B12 500 mcg-folic acid 400 1 tab PO QDAY 04/1303/01/25 mcg tablet atorvastatin 10 mg tablet 10 mg PO QDAY #90 tabs 05/2503/01/25 epinephrine 0.3 mg/0.3 mL 0.3 mg (0.3 mL) IM Q10M PRN 05/25/24 03/01/25 injection, auto-injector (EpiPen) Anaphylactic shrimp allergy #1 ea simethicone 80 mg chewable tablet 80 mg PO QDAY PRN ab dominal 06/17/24 03/01/25 (Gas Relief (simethicone)) distention #60 tabs acetaminophen 500 mg capsule 500 mg PO Q6H PRN pain 03/01/25 carboxymethylcellulose sodium 0.5 1 drp ophthalmic (ey e) .prn 06/23/24 03/01/25 % eye drops in a dropperette (Lubricant Eye Drops) glucagon 3 mg/actuation nasal 3 mg intranasal ONCE 03/01/25 spray (Baqsimi) glutamine 500 mg capsule 10 mg PO QDAY 06/23/2403/01 (L-Glutamine) guaifenesin 400 mg tablet 400 mg PO .PRN 06/23/2402/02 ibuprofen 200 mg capsule 200 mg PO Q6H PRN pain 06/2303/01/25 calcium carbonate 600 mg PO QDAY 06/29/2402/02 famotidine 20 mg tablet 20 mg PO BID 06/29/24 ondansetron 8 mg disintegrating 8 mg PO BID-TID 03/01/25 tablet Held on 02/19/25. Instructions: Per Patient prochlorperazine maleate 10 mg 10 mg PO TID PRN nausea 07/07/24 03/01/25 tablet pyridoxal-5 phosphate 100 mg/gram 100 mg PO .QD 03/01/25 oral powder triamcinolone acetonide 0.1 % 1 applic topical .PRN #3 0 grams 07/07/24 03/01/25 topical cream cetirizine 10 mg tablet 10 mg PO QDAY 08/09/2403/01 insulin lispro 100 unit/mL 15 - 20 unit subcut TID 03/01/25 subcutaneous pen (Humalog KwikPen (U-100) Insulin) insulin degludec 100 unit/mL (3 12 unit subcut QDAY 03/01/25 mL) subcutaneous pen (Tresiba FlexTouch U-100 insulin) mirtazapine 15 mg tablet 15 mg PO .qhs #90 tabs 02/1903/01/25 oxymetazoline 0.05 % nasal mist 2 spray intranasal Q12 H PRN nasal 02/28/25 03/01/25 (Afrin (oxymetazoline)) congestion 3 days #15 mL Allergies Allergies Allergy/AdvReac Type Severity Reaction Status Date / Time cefdinir (From Omnicef) Allergy Severe Rash Verified 03/01/25 15:55 escitalopram (From Lexapro) Allergy Severe Dizziness Verified 03/01/25 15:55 naproxen Allergy Severe tinnitus Verified 03/01/25 15:55 Cephalosporins Allergy Rash Verified 03/01/25 15:55 shrimp AdvReac Severe Edema Verified 03/01/25 15:55 bandaids Allergy Itching Uncoded 03/01/25 15:55 tape AdvReac Unknown Unknown Uncoded 03/01/25 15:55 PFSH Active Problems All Active Problems Epistaxis (Acute) Leukocytosis (Acute) Epistaxis (Acute) Weight loss (Acute) Postmenopausal (Acute) Dysgeusia (Acute) Counseling regarding advanced care planning and goals of care (Acute) Anxiety (Acute) Type 1 diabetes mellitus on insulin therapy (Chronic) Chemotherapy induced neutropenia (Acute) Hemianopia, homonymous, right (Acute) Chemotherapy-induced fatigue (Acute) Low back pain (Chronic) Osteopenia of left femoral neck (Chronic) Healthcare maintenance (Chronic) Encounter for antineoplastic chemotherapy (Chronic) 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) Vision changes (Acute) Allergic rhinitis (Chronic) Osteoporosis (Chronic) Secondary diabetes mellitus with cataract (Chronic) Paroxysmal atrial fibrillation (Chronic) Other fatigue (Chronic) Hyperlipidemia, unspecified (Chronic) Atherosclerosis of aorta (Chronic) Dysplastic nevus syndrome (Chronic) Attention and concentration deficit (Chronic) Allergies (Chronic) Anemia (Chronic) Sweet syndrome (Chronic) Depression with anxiety (Chronic) Medical History Medical History History of breast cancer Acne rosacea Lumbago with sciatica, left side Classic migraine with aura Allergy to shrimp Anaphylatic, requiring epi pen History of basal cell carcinoma Surgical History Surgical History History of craniotomy Left occipital craniotomy for STR, Dr. Jameson 04/22/2024 Social History Social History Smoking Status: Never smoker Number of Years Smoked: 0 Second hand tobacco smoke exposure: No Do you dip or chew tobacco?: No Do you vape?: No Initiate information on smoking cessation: No Living arrangement: At home Marital Status: Living Condition: With family Support Person: Yes Living Situation Details: son Brad lives with her Has a Durable Power of [employer] for Health Care?: Yes Name / Relationship: Ash Espinoza/derrell [phone] DPOA on file?: Yes Has Health Care Directive?: Yes Health Care Directive on file?: Yes Physical Activity: None Level: Independent Do you feel safe in your home environment?: Yes History of physical, verbal, emotional, or financial abuse?: No ETOH Use: None Substance Use: denies use 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 son lives with her, but works during the day Exam Exam Vital Signs: Vital Signs x48h Temp Pulse Resp BP BP Pulse Ox 03/01/25 21:42 36.7 C 23 145/78 H 98 03/01/25 21:00 78 22 124/78 98 03/01/25 20:56 36.8 C 20 147/89 H 96 03/01/25 20:40 37.2 C 16 159/76 H 98 03/01/25 19:46 72 17 151/85 H 99 03/01/25 17:57 73 16 145/85 H 94 03/01/25 15:52 36.9 C 80 20 134/71 H 96 Constitutional normal general appearance appears chronically ill, slightly pale HENMT normocephalic, head/scalp atraumatic, hearing grossly normal bilaterally and oral mucous membranes normal Eyes conjunctivae normal Neck/C-Spine visual inspection normal Lymph no lymphadenopathy noted Chest inspection of chest normal port is accessed, no erythema, warmth. Respiratory breath sounds equal bilaterally, normal respiratory effort and clear to auscultation bilaterally Cardiovascular normal heart rate noted, regular rhythm noted and peripheral pulses 2+ throughout Gastrointestinal abdomen normal to inspection, abdomen soft to palpation and nondistended Extremities normal to inspection ecchymosis posterior left calf Neurology speech normal and GCS 15 Psychiatry mental status grossly normal, oriented x3, thought process normal, cooperative and affect normal Skin skin color normal and no rash Conclusion/Plan Problem List (1) Leukocytosis: Plan: 74-year-old female who presents to the emergency department for epistaxis leukocytosis is incidentally noted on CBC. She does not have any cough. She does not have any fever. She is about 1 week after her last chemotherapy treatment and this is not normal. She was recently on steroids for a gamma knife procedure but has been off of them for about 2 weeks now. Patient had a chest x-ray in the emergency department that was read by radiology as no acute cardiopulmonary process. I have reviewed the film myself and I do not see any infiltrate. Urinalysis is pending at this time. She does not have any other focus of infection. Her port does not look infected. I do not think that this leukocytosis is related to steroid use. I will admit this patient to observation status. This was agreed upon after discussion with the emergency department PA. I will observe her white blood cell count. I will follow her blood cultures which are pending at this time. Also need to check urinalysis. (2) Epistaxis: Plan: She has been struggling with nosebleed for several days. She is anticoagulated on Eliquis for atrial fibrillation. I believe this is contributing to this somewhat. Nasal tampon was placed by the emergency department. This is in place and bleeding is controlled at this time. There is no need for prophylactic antibiotics. Will leave the packing in for 48 to 72 hours. It will then need to be removed very carefully. I am holding Eliquis for now. (3) Type 1 diabetes mellitus on insulin therapy: Plan: Last A1c 5 months ago was 7.2%. This patient takes sliding scale Humalog at home. She also takes long-acting insulin, 11 units every morning. She has a CGM in place. Her blood sugars currently reading 253. I am holding long-acting insulin for now. I will place the patient on glucose checks and sliding scale insulin. (4) Malignant neoplasm of breast metastatic to lung: Plan: Metastatic breast cancer. She is on gemcitabine for palliative chemotherapy. Last dose was 1 week ago. This is usually associated with neutropenia but she has a leukocytosis at this time. She also has history of brain metastasis status post gamma knife treatment. (5) Paroxysmal atrial fibrillation: Plan: She has been having some episodes of tachycardia at home. Her medications for her atrial fibrillation include Eliquis 5 mg twice daily, metoprolol 50 mg daily. I am holding her Eliquis due to bleeding complications. I will resume her metoprolol. I will place her on 24 hours of telemetry monitoring to monitor her rate and rhythm. Plan I have spent 85 minutes in the care of this patient today. This includes time [id number], review and ordering of diagnostic imaging and laboratory studies and consultation with other providers. Monitoring the patient's signs symptoms, evaluation of medication effectiveness and patient's response to treatment. Lab Results Lab results reviewed: Yes 03/01/25 18:13 03/01/25 18:13 Diagnostic Imaging Results Diagnostic Imaging Results: positive Final report reviewed Core Measures Anticipated LOS I expect patient to be DC'd or transferred within 96 hours.: Yes DVT/VTE - Prophylaxis VTE/DVT Device ordered at admit?: Yes VTE/DVT Prophylaxis med ordered at admit?: No Not Ordered - Medical Reason: Contraindicated
[2025-03-01 21:19] LABS: OCCULT BLOOD,URINE MODERATE (NEGATIVE)
[2025-03-01 21:20] LABS: GLUCOSE, URINE (UA) >=1000 mg/dL (NEGATIVE); KETONES,URINE (UA) 5 mg/dL (NEGATIVE); SQUAMOUS EPITHELIAL CELL,UR RARE Squamous (<= Few)
[2025-03-01] MEDS ORDERED: SODIUM CHLORIDE FLUSH 0.9% 10 ML SYRINGE IVP PRN (22:04)
[2025-03-01] MEDS ORDERED: ONDANSETRON 4 MG/2 ML VIAL IVP PRN (22:04)
[2025-03-01] MEDS ORDERED: MIRTAZAPINE 15 MG TABLET PO SCH (22:04)
[2025-03-01] MEDS ORDERED: PROCHLORPERAZINE 5 MG TABLET PO PRN (22:04)
[2025-03-01] MEDS: ACETAMINOPHEN 325 MG TABLET PO PRN (22:39)
[2025-03-01] MEDS: INSULIN LISPRO 300 UNIT/3 ML PEN SUBQ SCH (22:40)
[2025-03-01] MEDS: SODIUM CHLORIDE FLUSH 0.9% 10 ML SYRINGE IVP SCH (23:54)
[2025-03-02] MEDS: oxyCODONE 5 MG TABLET PO PRN (04:42)
[2025-03-02 05:20] LABS: HCT - HEMATOCRIT 24.9 % (37.0-47.0); HGB - HEMOGLOBIN 8.1 g/dL (12.0-16.0); MEAN PLATELET VOLUME 9.5 fL (7.9-10.8); PLT - PLATELET COUNT 70 10^3/uL (130-450); RED CELL DISTRIBUTION WIDTH 16.3 % (12.0-15.0)
[2025-03-02 05:23] LABS: ABNORMAL LYMPHS % (MANUAL) 0 %; BAND NEUTROPHILS % (MANUAL) 0 %; BASOPHILS # (MANUAL) 0.0 10^3/uL (0-0.1)
[2025-03-02 05:40] LABS: BUN - BLOOD UREA NITROGEN 24.0 mg/dL (6-20); CARBON DIOXIDE - CO2 26.0 mmol/L (21-32); CREATININE 0.5 mg/dL (0.6-1.3); GFR - MDRD 121.0 (>89)
[2025-03-02 05:47] LABS: EOSINOPHILS # (MANUAL) 0.2 10^3/uL (0-0.7); LYMPHOCYTES # (MANUAL) 1.4 10^3/uL (1.5-3.5); LYMPHOCYTES % (MANUAL) 9 %; MONOCYTES # (MANUAL) 1.0 10^3/uL (0.0-1.0); NEUTROPHILS # (MANUAL) 13.5 10^3/uL (1.5-6.6)
[2025-03-02 05:50] LABS: PLATELET MORPHOLOGY NORMAL APPEARANCE (NORMAL); RBC MORPHOLOGY (MULTIPLE) 1+ ANISOCYTOSIS (NORMAL)
[2025-03-02 05:51] LABS: PLATELET ESTIMATE, MANUAL DECREASED (<130,000) (NORMAL)
[2025-03-02] MEDS: METOPROLOL SUCCINATE 50 MG TABLET PO SCH (08:29)
[2025-03-02] MEDS: HYDROmorphone 0.5 MG/0.5 ML SYRINGE IVP PRN (08:44)
[2025-03-02] MEDS: INSULIN LISPRO 300 UNIT/3 ML PEN SUBQ SCH (08:58)
[2025-03-02] MEDS: INSULIN GLARGINE-YFGN 300 UNIT/3 ML PEN SUBQ SCH (09:00)
[2025-03-02 11:31] LABS: ESTIMATED AVERAGE GLUCOSE 137 mg/dL (70-100); HEMOGLOBIN A1c% 6.4 % (4.27-6.07)
--- NOTE | 2025-03-02 11:39 | Discharge Summary ---
Discharge Summary Admit Date: 03/01/25 Discharge Date: 03/02/25 Discharging Provider: Chloe Smith PA-C Code Status: Do Not Attempt Resuscitation DIAGNOSES Discharge Diagnoses with Status of Each Condition: Leukocytosis, resolving Epistaxis, resolved still with nasal tampon in place Insulin-dependent diabetes mellitus, Metastatic breast cancer to lung and brain on palliative chemotherapy Paroxysmal atrial fibrillation, holding anticoagulation HPI History of Present Illness: 74-year-old female with history of metastatic breast cancer to brain and lungs, atrial fibrillation on anticoagulation, insulin-dependent diabetes presents to the emergency department with a nosebleed. She has been struggling with this nosebleed for a period of days now. She was seen at the walk-in clinic yesterday and it was managed conservatively with oxymetazoline spray, lidocaine with epinephrine and manual pressure. It started bleeding again today and therefore she presented to the emergency department. In the emergency department it was controlled with a pressure dressing. It is bleeding from the left nostril. Labs were done, chemistries were unremarkable but her CBC was remarkable for a white count of 23.3 with high neutrophils, hemoglobin 7.8. Emergency department provider ordered 1 unit of packed red blood cells and asked me to admit this patient for observation in light of her leukocytosis. Workup in the emergency department has included a chest x-ray which is done but not read, a urinalysis which has not yet been collected, and blood cultures x 2. This patient completed gamma knife therapy for her brain metastases on 02/14/2025. She had some issues with hyperglycemia during this time related to the steroids, she is off of steroids at this time. Her last chemotherapy treatment was 02/22/2025. Oncology notes were reviewed and it seems that usually she becomes neutropenic after chemotherapy treatments. CODE STATUS reviewed, DNR, her son Ash is her surrogate medical decision maker should she need 1. 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 She did have concurrent administration of growth factor to combat her typical neutropenia that she gets after chemotherapy. She presented with a nosebleed and was treated appropriately in the emergency department but was admitted due to her leukocytosis. She was not started on antibiotics. On hospital day 2 her leukocytosis was coming down from 23.3-16.1. She did have blood cultures drawn at the time of admission which showed no growth to date. She was discharged home in stable condition after being monitored overnight without any fevers tachycardia or hypotension. She was instructed to hold her Eliquis therapy until evaluated by ear nose and throat. She was instructed to have nasal packing removed in 1 to 2 days. She will have ENT follow-up in [place] later this week as arranged by our discharge planners. ALLERGIES Allergies Allergy/AdvReac Type Severity Reaction Status Date / Time cefdinir (From Omnicef) Allergy Severe Rash Verified 03/01/25 15:55 escitalopram (From Lexapro) Allergy Severe Dizziness Verified 03/01/25 15:55 naproxen Allergy Severe tinnitus Verified 03/01/25 15:55 Cephalosporins Allergy Rash Verified 03/01/25 15:55 shrimp AdvReac Severe Edema Verified 03/01/25 15:55 bandaids Allergy Itching Uncoded 03/01/25 15:55 tape AdvReac Unknown Unknown Uncoded 03/01/25 15:55 MEDICATIONS Ambulatory Orders Medication Instructions Recorded Confirmed magnesium 250 mg tablet 500 mg PO DAILY 06/19/15 acetone (urine) test (Ketostix 04/13/24 03/01/25 strips) apixaban 5 mg tablet (Eliquis) 5 mg PO BID 04/13/24 Held on 03/02/25. Instructions: Resume on 03/07/25. hold this medication until you have been seen by ENT biotin 2,500 mcg capsule 2,500 mcg PO QDAY 04/13/24 1 blood sugar diagnostic (OneTouch 04/13/24 03/01/25 Verio test strips) blood-glucose meter (OneTouch 04/13/24 03/01/25 Verio Flex Meter) blood-glucose,furniture fabricator,cont 04/13/24 03/01/25 (FreeStyle Ember 3 [place]) lancets 30 gauge 04/13/24 03/01/25 metoprolol succinate 50 mg 50 mg PO DAILY 04/13/24 tablet,extended release 24 hr propylhexedrine (Benzedrex nasal 2 inh intranasal Q4H 04/13/24 03/01/25 inhaler) triamcinolone acetonide 55 mcg 2 spray intranasal QDAY 04/13/24 03/01/25 nasal spray aerosol (Nasacort) vitamin B12 500 mcg-folic acid 400 1 tab PO QDAY 04/1303/01/25 mcg tablet atorvastatin 10 mg tablet 10 mg PO QDAY #90 tabs 05/2503/01/25 epinephrine 0.3 mg/0.3 mL 0.3 mg (0.3 mL) IM Q10M PRN 05/25/24 03/01/25 injection, auto-injector (EpiPen) Anaphylactic shrimp allergy #1 ea simethicone 80 mg chewable tablet 80 mg PO QDAY PRN ab dominal 06/17/24 03/01/25 (Gas Relief (simethicone)) distention #60 tabs acetaminophen 500 mg capsule 500 mg PO Q6H PRN pain 03/01/25 carboxymethylcellulose sodium 0.5 1 drp ophthalmic (ey e) .prn 06/23/24 03/01/25 % eye drops in a dropperette (Lubricant Eye Drops) glucagon 3 mg/actuation nasal 3 mg intranasal ONCE 03/01/25 spray (Baqsimi) glutamine 500 mg capsule 10 mg PO QDAY 06/23/2403/01 (L-Glutamine) guaifenesin 400 mg tablet 400 mg PO .PRN 06/23/2402/02 ibuprofen 200 mg capsule 200 mg PO Q6H PRN pain 06/2303/01/25 calcium carbonate 600 mg PO QDAY 06/29/2402/02 famotidine 20 mg tablet 20 mg PO BID 06/29/24 ondansetron 8 mg disintegrating 8 mg PO BID-TID 03/01/25 tablet prochlorperazine maleate 10 mg 10 mg PO TID PRN nausea 07/07/24 03/01/25 tablet pyridoxal-5 phosphate 100 mg/gram 100 mg PO .QD 03/01/25 oral powder triamcinolone acetonide 0.1 % 1 applic topical .PRN #3 0 grams 07/07/24 03/01/25 topical cream cetirizine 10 mg tablet 10 mg PO QDAY 08/09/2403/01 insulin lispro 100 unit/mL 15 - 20 unit subcut TID 03/01/25 subcutaneous pen (Humalog KwikPen (U-100) Insulin) insulin degludec 100 unit/mL (3 12 unit subcut QDAY 03/01/25 mL) subcutaneous pen (Tresiba FlexTouch U-100 insulin) mirtazapine 15 mg tablet 15 mg PO .qhs #90 tabs 02/1903/01/25 PHYSICAL EXAM AT DISCHARGE Vital Signs: Vital Signs x48h Temp Pulse Resp BP Pulse Ox 03/02/25 13:21 36.8 C 79 16 153/69 H 96 LABS 03/02/25 04:54 03/02/25 04:54 FOLLOW UP Follow Up: Oncology as scheduled PCP Jen Salamanca 7 to 10 days Palliative care as scheduled ENT, new referral on 03/07 TIME SPENT Time Spent in Discharge (Minutes): 45 Discharge Plan Discharge Patient Disposition: Home, Self Care Condition: Good Prescriptions: Continued cetirizine 10 mg tablet 10 mg PO QDAY Rx Instructions: As directed by Dr. Gianfranco Chapa MD for allergic rhinitis magnesium 250 MG tablet 500 mg PO DAILY calcium carbonate 600 mg calcium (1,500 mg) tablet 600 mg PO QDAY Rx Instructions: As directed by Dr. Juan Carrera MD for prevention of osteoporosis metoprolol succinate 50 mg tablet extended release 24 hr 50 mg PO DAILY Rx Instructions: Take 1 tablet by mouth daily for heart arrhythmia (DME) Ketostix Strip See Rx Instructions .Route Rx Instructions: As directed (DME) FreeStyle Ember 3 [place] [facility] [place] See Rx Instructions .Route Rx Instructions: As directed (DME) blood-glucose meter [OneTouch Verio Flex meter] [facility] [place] See Rx Instructions .Route Rx Instructions: As directed (DME) OneTouch Verio test strips Strip See Rx Instructions .Route Rx Instructions: As directed (DME) lancets 30 gauge [facility] [place] See Rx Instructions .Route Rx Instructions: As directed vitamin Y05-blmqw acid 500-400 mcg tablet 1 tab PO QDAY Rx Instructions: administer with a meal as directed biotin 2,500 mcg capsule 2,500 mcg PO QDAY Rx Instructions: As directed triamcinolone acetonide [Nasacort] 55 mcg aerosol,spray 2 spray intranasal QDAY Rx Instructions: administer 2 sprays into each nostril daily as directed by Dr. Gianfranco Chapa Benzedrex Inhaler 2 inh intranasal Q4H Rx Instructions: As directed. Use for nasal congestion as needed. insulin degludec [Tresiba FlexTouch U-100] 100 unit/mL (3 mL) insulin pen 12 unit subcut QDAY Rx Instructions: Inject 14 units subcutaneously daily. May adjust based on CGM readings. atorvastatin 10 mg tablet 10 mg PO QDAY Qty: 90 4RF Rx Instructions: Take 1 tablet nightly to reduce cholesterol, risk of strike and CVA epinephrine [EpiPen] 0.3 mg/0.3 mL auto-injector 0.3 mg IM Q10M PRN (Reason: Anaphylactic shrimp allergy) Qty: 1 4RF Rx Instructions: Follow pack instructions simethicone [Gas Relief (simethicone)] 80 mg tablet,chewable 80 mg PO QDAY PRN (Reason: abdominal distention) Qty: 60 0RF Patient Comments: 125-250 mg insulin lispro [Humalog KwikPen Insulin] 100 unit/mL insulin pen 15 - 20 unit subcut TID Rx Instructions: Sliding scale as directed famotidine 20 mg tablet 20 mg PO BID ondansetron 8 mg tablet,disintegrating 8 mg PO BID-TID prochlorperazine maleate 10 mg tablet 10 mg PO TID PRN (Reason: nausea) pyridoxal-5 phosphate 100 mg/gram powder 100 mg PO .QD triamcinolone acetonide 0.1 % cream 1 applic topical .PRN Qty: 30 0RF mirtazapine 15 mg tablet 15 mg PO .qhs Qty: 90 1RF L-Glutamine 500 mg capsule 10 mg PO QDAY acetaminophen 500 mg capsule 500 mg PO Q6H PRN (Reason: pain) Patient Comments: 500 OR 650 MG ibuprofen 200 mg capsule 200 mg PO Q6H PRN (Reason: pain) Patient Comments: PER PATIENT/OCCASIONAL USE guaifenesin 400 mg tablet 400 mg PO .PRN carboxymethylcellulose sodium [Lubricant Eye Drops] 0.5 % dropperette 1 drp ophthalmic (eye) .prn Baqsimi 3 mg/actuation spray,non-aerosol 3 mg intranasal ONCE Held Eliquis 5 mg tablet 5 mg PO BID Hold Instructions: Resume on 03/07/25. hold this medication until you have been seen by ENT Rx Instructions: Take 1 tablet by mouth daily to reduce potential for blood clots with A-Fib. Interventions: Belongings Inventory Last Done: 03/02/25 13:00 Discharge Last Done: 03/02/25 13:10 Discharge Checklist - Nursing Last Done: 03/02/25 13:13 Discharge Vital Signs (30 Minutes) Last Done: 03/02/25 13:21 Health Concerns: You have a nasal tampon in place to control a nosebleed (epistaxis). You are temporarily holding your apixaban (Eliquis) as directed. Please follow these instructions to help your nose heal and reduce the risk of further bleeding: * Nasal Tampon Care:Do not remove or disturb the nasal tampon. It will be removed by a healthcare provider in 4872 hours. You can come to the ED on Wednesday or Wednesday to have it pulled out. I want you to keep your ENT appointment on Wednesday in [facility] with Dr Buitrago at 835am to have your nose assessed. Do not start Eliquis until after that appointment, even with the RhinoRocket out. * Activity Restrictions:Avoid blowing your nose, strenuous activity, heavy lifting, and picking your nose for at least 1 week. These actions can cause the bleeding to start again. * Nasal Hygiene:Use saline nasal spray or gel as recommended to keep your nasal passages moist. Consider using a humidifier at home to prevent dryness. You can do this with the right nostril starting today * Bleeding Precautions:If bleeding recurs, lean forward and pinch the soft part of your nose continuously for 1520 minutes. Spit out any blood that collects in your mouth. If bleeding is severe, persistent, or you feel lightheaded, seek medical attention immediately. * Medication Instructions:Do not restart apixaban until you are advised to do so by your healthcare provider. Holding apixaban is standard during active bleeding; it will be resumed when bleeding risk is controlled. * Signs to Watch For:Call your healthcare provider or go to the emergency room if you have: * Heavy or persistent bleeding * Difficulty breathing * Fever or signs of infection (increased pain, swelling, pus) * Severe headache or vision changes * Foul odor from the nose * Follow-Up:Attend all scheduled follow-up appointments for nasal tampon removal and reassessment. Your provider will discuss when it is safe to restart apixaban based on your bleeding risk and underlying medical condition. Print Language: Turkish Patient Instructions: ED Epistaxis (Adult) Follow-up Care: Jen Salamanca ARNP [Primary Care Provider, Family Practice] Vitals documented within 30 minutes of discharge?: Yes
[2025-03-02 13:25] VITALS: BP 153/69; TEMP 98.2; O2SAT 96
== END 2025-03-02 13:25 | disposition home or self-care (01) ==
LOC: ED 15:48 → MS3 15:48
PROVIDERS: ADMIT Physician Assistant Medical; ATTEND Physician Assistant Medical
DX: D63.0 Anemia in neoplastic disease; I48.0 Paroxysmal atrial fibrillation; C50.919 Malignant neoplasm of unspecified site of unspecified female breast; Z79.01 Long term (current) use of anticoagulants; E10.9 Type 1 diabetes mellitus without complications; D72.829 Elevated white blood cell count, unspecified; Z66 Do not resuscitate; C79.31 Secondary malignant neoplasm of brain; C78.00 Secondary malignant neoplasm of unspecified lung; R04.0 Epistaxis